=== PATIENT | male | born 1950 | race Caucasian/White ===

== ENCOUNTER 2020-04-10 21:04 | Observation (INO) | payer MEDICARE, SELFPAY ==
[2020-04-10] VITALS (7 sets, daily range): BP systolic 133–163; BP diastolic 79–107; PULSE 75–81; RESP 14–20; TEMP 37.1; O2SAT 95–99
--- NOTE | ~2020-04-10 | CT_ITS ---
EXAMINATION: CT brain wo con DATE: 04/10/2020 23:09 INDICATION: Weakness and confusion. TECHNIQUE: Computed tomography (CT) of the head was performed without intravenous contrast. The dose- length product was 681.00 mGy-cm. The mA was adjusted according to patient size. Iterative reconstruc tion technique was employed. COMPARISON: CT dated 10/19/2017 FINDINGS: Generalized brain parenchymal atrophy. There are scattered mild periventricular and subcort ical white matter changes, most likely related to small vessel ischemic disease (microangiopathy). No ventriculomegaly or midline shift. Basilar cisterns are patent. Paranasal sinuses and mastoids are p neumatized. No depressed skull fractures. No acute intracranial hemorrhage, infarction, mass or mass effect. IMPRESSION: 1. No acute intracranial abnormality. 2: Chronic age-related findings. Reviewed, dictated and finalized at location A.
--- NOTE | ~2020-04-10 | XR_ITS ---
EXAMINATION: XR chest 2V 04/10/2020 21:31 INDICATION: Generalized weakness. PROCEDURE: 2 view chest COMPARISON: Comparison to multiple prior studies sequentially, with oldest reviewed study dated 12/14. FINDINGS: The lungs are clear. The cardiomediastinal silhouette is within normal limits. There are no pleural effusions. There is no pneumothorax suspected. IMPRESSION: 1: NO ACUTE CARDIOPULMONARY DISEASE. Reviewed, dictated and finalized at location A.
--- NOTE | 2020-04-10 21:08 | ECG_ITS ---
Measurements Intervals [place] Rate: 80 P: 37 MD: 170 QRS: 6 QRSD: 113 T: 99 QT: 408 QTc: 473 Interpretive Statements SINUS RHYTHM INTRAVENTRICULAR CONDUCTION DELAY NONSPECIFIC ST & T-WAVE ABNORMALITY- DIFFUSE LEADS BASELINE ARTIFACT- I, II, III, AVR, AVL, AVF BORDERLINE ECG Electronically Signed On 04-11-2020 7:12:19 CDT by Miquel King D.O.
[2020-04-10 21:27] LABS: Basophils Percent Auto 0.3 % (0.2-1.2); Eosinophils Absolute Auto 0.3 K/mm3 (0-0.3); Eosinophils Percent Auto 2.7 % (0-4.4); Hematocrit 36.1 % (42.0-52.0); Hemoglobin 11.6 g/dL (14.0-18.0); Immature Granulocyte Absolute 0.04 K/mm3 (0.00-0.031); Immature Granulocyte Percent A 0.4 % (0-0.5); Lymphocytes Absolute Auto 1.31 K/mm3 (0.9-3.2); Lymphocytes Percent Auto 13.3 % (18.3-44.2); Mean Corpuscular HGB Conc 32.1 g/dl (32-36); Mean Corpuscular Hemoglobin 29.7 pg (26-34); Mean Corpuscular Volume 92.3 fl (80-100); Mean Platelet Volume 9.7 fl (7.4-10.4); Monocytes Absolute Auto 1.3 K/mm3 (0.1-0.6); Neutrophils Absolute Auto 6.9 K/mm3 (1.3-6.7); Neutrophils Percent Auto 70.3 % (45.5-73.1); Platelet Count Result 312 k/mm3 (150-375); Red Blood Count 3.91 M/mm3 (4.6-6.20); Red Cell Distribution Width 14.6 % (11.5-14.5); White Blood Count 9.9 K/mm3 (4.5-10.0)
--- NOTE | 2020-04-10 21:27 | ED.WEAKNESS ---
HPI - Weakness General Chief complaint: Weakness Stated complaint: weakness Time Seen by Provider: 04/10/20 21:27 History of Present Illness HPI Narrative: Patient presents via EMS for generalized weakness. He had his dinner and then took a shower. In the shower he kept sliding off of his shower chair. He was unable to get up himself. He feels like his strength has returned. He has been using a walker for a year. He does not know why he needs help with the walker. He does not know his medications he says his has them. He has no pain. He has not been sick in the last couple weeks. MD Complaint: generalized weakness Onset (ago): hour(s) Duration: now resolved Location: generalized Relieving factors: rest Context: other (Showers cause vasodilatation.) Related Data Home Medications Medication Instructions Recorded Confirmed Adults Multivitamin 10/18/19 bupropion HCl PO 10/18/19 carvedilol 10/18/19 divalproex PO 10/18/19 finasteride mg 10/18/19 fluphenazine HCl 10/18/19 furosemide 10/18/19 iron polysac-iron heme polypep 10/18/19 levothyroxine 10/18/19 metolazone 10/18/19 olanzapine mg 10/18/19 paroxetine HCl mg PO 10/18/19 potassium chloride meq PO 10/18/19 senna 10/18/19 tamsulosin mg PO 10/18/19 vitamin B complex 10/18/19 Allergies Allergy/AdvReac Type Severity Reaction Status Date / Time haloperidol AdvReac Severe shakey, Verified 04/10/20 21:09 dyskinesia Review of Systems Review of Systems: Narrative: CONSTITUTIONAL: Denies fever, chills, or sweats. EYES: Denies visual changes, redness, or discharge. ENT: Denies rhinorrhea, congestion, sore throat, or otalgia. CARDIOVASCULAR: Denies chest pain, palpitations, or edema. RESPIRATORY: Denies cough or dyspnea. GASTROINTESTINAL: Denies abdominal pain, nausea, vomiting, or diarrhea. GENITOURINARY: Denies dysuria or hematuria. SKIN: Denies rash or itching. MUSCULOSKELETAL: Denies back pain, joint pain, or myalgia. NEUROLOGIC: Denies headache, numbness, or weakness. PSYCHIATRIC: Denies anxiety or depression. [facility] Past Medical History Medical History Anemia Anxiety BPH (benign prostatic hyperplasia) Depression Fractures rt fibula GERD (gastroesophageal reflux disease) Glaucoma Hypertension Hypothyroid Pneumonia Schizophrenia Seizures Shingles Sleep apnea Tuberculosis Urinary retention Surgical History Surgical History H/O eye surgery History of hip replacement bilateral Hx of total knee arthroplasty bilateral Social History Social History Smoking status: Never smoker Exam Narrative: Exam Narrative: GENERAL: Well-appearing, well-nourished, and in no acute distress. Overweight. Pleasant. HEAD: Normocephalic, atraumatic. EYES: PERRLA and EOMI. ENT: Nares clear, no rhinorrhea or epistaxis. Mucous membranes dry. NECK: Supple. CHEST: Clear to auscultation. No respiratory distress. HEART: Regular rate and rhythm. No murmur heard. Normal peripheral pulses. ABDOMEN: Soft, nontender, nondistended, normal active bowel sounds. EXTREMITIES: Normal range of motion. No edema. SKIN: Warm, dry, no rash. NEURO: No focal deficits. Alert and oriented x3. PSYCH: Normal mood and affect. Course Consultations Consultation #1: Call the hospitalist and Janeth Bernal and returned adair call. He requests an additional dose of potassium, and accepts the patient. Date: 04/11/20 Time: 00:38 Vital Signs Vital signs: Vital Signs Temperature 98.8 F 04/10/20 21:03 Pulse Rate 81 04/10/20 21:03 Respiratory Rate 20 04/10/20 21:03 Blood Pressure 133/79 04/10/20 21:03 Pulse Oximetry 98 04/10/20 21:03 Temperature 98.8 F 04/10/20 21:03 Pulse Rate 78 04/11/20 00:18 Respiratory Rate 17 04/11/20 00:18 Blood Pressure 147/87 H 04/11/20 00:18 P
[2020-04-10 21:38] LABS: Alanine Aminotransferase 17 U/L (4-50); Albumin Level 4.1 g/dL (3.5-5.1); Alkaline Phosphatase 92 U/L (38-126); Aspartate Amino Transferase 28 U/L (17-59); Bilirubin,Total 0.3 mg/dL (0.2-1.3); Blood Urea Nitrogen 26 mg/dL (9-20); Calcium 9.1 mg/dL (8.4-10.2); Carbon Dioxide 34 mmol/L (22-30); Chloride 98 mmol/L (98-107); Estimated Glomerular Filt Rate > 60; Glucose 113 mg/dL (75-110); Potassium 2.9 mmol/L (3.4-5.0); Sodium 140 mmol/L (137-145)
[2020-04-10] MEDS: POTASSIUM CHLORIDE 10 MEQ TABLET 20 MEQ PO (21:54)
[2020-04-10 23:02] LABS: Free T4 Free Thyroxine Reflex 1.12 ng/dL (0.78-2.19)
[2020-04-10 23:23] LABS: Add Urine Microscopic? YES; Appearance Urine Clear (Clear); Bacteria Urine Trace /hpf; Bilirubin Urine Negative (Negative); Blood Urine Negative (Negative); Color Urine Yellow (Yellow); Glucose Urine UA Negative (Negative); Ketones Urine Trace mg/dL (Negative); Leukocyte Esterase Ur Negative LEU/UL (Negative); Mucus Urine Rare /lpf; Nitrate Urine Negative (Negative); Protein Urine 1+ mg/dL (Negative); RBC Urine 0-2 /hpf (0-2); Specific Grav Ur 1.028 (1.001-1.035); Squamous Epithelial Cell Urine Rare /hpf (Few); Urobilinogen Urine Negative mg/dL (<2.0); WBC Urine 0-3 /hpf
[2020-04-10 23:43] LABS: Total Triiodothyronine (T3) 0.93 NG/ML (0.97-1.69)
[2020-04-11] VITALS (26 sets, daily range): BP systolic 109–157; BP diastolic 64–103; PULSE 59–82; RESP 13–22; TEMP 35.6–36.4; O2SAT 94–99; BMI 43.5
[2020-04-11] MEDS: POTASSIUM CHLORIDE 10 MEQ TABLET 20 MEQ PO (01:28)
[2020-04-11] MEDS: LEVOTHYROXINE SODIUM 100 MCG, LEVOTHYROXINE SODIUM 75 MCG 175 MCG PO (06:10)
[2020-04-11] MEDS: MULTIVITAMINS THERAPEUTIC TAB (*BKC) 1 TABLET PO (08:45)
[2020-04-11] MEDS: TAMSULOSIN HCL 0.4 MG CAPSULE 0.8 MG PO (08:45)
[2020-04-11] MEDS: POTASSIUM CHLORIDE 20 MEQ TABLET.ER 40 MEQ PO (08:46)
[2020-04-11] MEDS: FUROSEMIDE 40 MG TABLET PO (08:46)
[2020-04-11] MEDS: FINASTERIDE 5 MG TABLET PO (08:46)
[2020-04-11] MEDS: carvediloL 12.5 MG TABLET PO ×2 (08:46→20:37)
[2020-04-11] MEDS: POLYSACCHARIDE IRON COMPLEX 150 MG CAPSULE PO (08:46)
[2020-04-11] MEDS: PAROXETINE 20 MG TABLET 40 MG PO (08:46)
[2020-04-11] MEDS: MAGNESIUM OXIDE 400 MG TABLET PO (08:46)
[2020-04-11] MEDS: VITAMIN B COMPLEX CAPSULE 1 CAP PO (08:46)
[2020-04-11] MEDS: metOLazone 5 MG TABLET PO (08:50)
[2020-04-11 09:00] LABS: Hematocrit 35.2 % (42.0-52.0); Hemoglobin 11.3 g/dL (14.0-18.0); Mean Corpuscular HGB Conc 32.1 g/dl (32-36); Mean Corpuscular Hemoglobin 29.7 pg (26-34); Mean Corpuscular Volume 92.4 fl (80-100); Mean Platelet Volume 9.6 fl (7.4-10.4); Platelet Count Result 270 k/mm3 (150-375); Red Blood Count 3.81 M/mm3 (4.6-6.20); Red Cell Distribution Width 14.6 % (11.5-14.5); White Blood Count 7.8 K/mm3 (4.5-10.0)
--- NOTE | 2020-04-11 09:04 | PC.NURSE ---
Two orders entered for Depakote. First order read Depakote 500mg BID and second order was for Depakote 250mg BID. Called to patients pharmacy and they stated patient had both ordered. However, the 250mg dose had never been picked up and has been on hold. Spoke with Dr. Thornton and received orders to discontinue the 250mg order and continue 500mg order. Patient unsure of what he normally does at home.
[2020-04-11 09:12] LABS: Blood Urea Nitrogen 23 mg/dL (9-20); Calcium 8.8 mg/dL (8.4-10.2); Carbon Dioxide 32 mmol/L (22-30); Chloride 98 mmol/L (98-107); Estimated CRCL calculation 89 ml/min; Estimated Glomerular Filt Rate > 60; Glucose 163 mg/dL (75-110); Magnesium 1.9 mg/dL (1.6-2.3); Sodium 140 mmol/L (137-145)
[2020-04-11] MEDS: buPROPion HCL SR (12HR) 100 MG TABCR 200 MG PO ×2 (09:12→20:37)
[2020-04-11] MEDS: DIVALPROEX SODIUM 250 MG TABEC 500 MG PO ×2 (09:13→20:38)
--- NOTE | 2020-04-11 14:25 | PM.IMHP ---
H&P: HPI History of Present Illness Chief complaint: weakness, hypothroidism, hypokalemia, Narrative: Soren Almanzar is a 69 year old male with history of schizophrenia seizure anxiety depression and hypothyroidism he lives with his at home and apparently patient has been feeling quite weak and tired, has difficulty ambulating with a walker on the day of admission, patient after dinner went to take a shower normally he sits down in the chair however he kept falling off the chair and sliding down eventually fell on floor and was not able to get up EMS was called patient was brought to the emergency department further evaluation, patient deneis any symptome of CP, palpitation or dizziness prior to fall, he denies any cough, fever or chill and he is not been exposed to COVID-19, patient is morbily obese with BMP of 44 and his who is his caregiver unable to take care him and would to place him the NH. Will have a PT OT evaluate the patient, patient will benefit going to acute rehab Review of Systems Review of Systems: All systems reviewed & are unremarkable except as noted in HPI and below PMFSH Past Medical History Medical History Anemia Anxiety BPH (benign prostatic hyperplasia) Depression Fractures rt fibula GERD (gastroesophageal reflux disease) Glaucoma Hypertension Hypothyroid Pneumonia Schizophrenia Seizures Shingles Sleep apnea Tuberculosis Urinary retention Surgical History Surgical History H/O eye surgery History of hip replacement bilateral Hx of total knee arthroplasty bilateral Family History Family History (Updated 04/11/20 @ 02:49 by Robert Gerber RN) Mother Alcoholism Heart disease Father Brain cancer Sibling Stomach cancer Alcoholism Acute myocardial infarction Social History Social History Smoking status: Never smoker Alcohol intake: former Substance use: never Spiritual care concerns: No Meds Home Medications and Allergies Home Medications Medication Instructions Recorded Confirmed Type Adults Multivitamin 1 tab-cap/day PO DAILY 10/18/19 04/11/20 History bupropion HCl 200 mg PO BID 10/18/19 04/11/20 History carvedilol 12.5 mg PO BID 10/18/19 04/11/20 History finasteride 5 mg PO DAILY 10/18/19 04/11/20 History fluphenazine HCl 10 mg PO TID 10/18/19 04/11/20 History furosemide 40 mg PO DAILY 10/18/19 04/11/20 History iron polysac-iron heme polypep 150 mg PO DAILY 10/18/19 04/11/20 History levothyroxine 150 mcg PO DAILY 10/18/19 04/11/20 History metolazone 5 mg PO DAILY 10/18/19 04/11/20 History olanzapine 10 mg PO DAILY 10/18/19 04/11/20 History paroxetine HCl 40 mg PO DAILY 10/18/19 04/11/20 History potassium chloride 40 meq PO DAILY 10/18/19 04/11/20 History senna 1 tab-cap PO BID 10/18/19 04/11/20 History tamsulosin 0.8 mg PO DAILY 10/18/19 04/11/20 History vitamin B complex 1 tab-cap PO DAILY 10/18/19 04/11/20 History divalproex 500 mg PO BID 04/11/20 04/11/20 History magnesium oxide 400 mg PO DAILY 04/11/20 04/11/20 History Allergies Allergy/AdvReac Type Severity Reaction Status Date / Time haloperidol AdvReac Severe shakey, Verified 04/10/20 21:09 dyskinesia Vital Signs Vital Signs - 24 hr 04/10/20 21:03 04/10/20 22:30 04/10/20 23:18 Temperature 98.8 F Pulse Rate 81 80 79 Respiratory Rate 20 20 14 Blood Pressure 133/79 161/92 H Pulse Oximetry 98 95 98 04/10/20 23:30 04/10/20 23:31 04/10/20 23:45 Temperature Pulse Rate 77 75 78 Respiratory Rate 14 14 15 Blood Pressure 163/107 H Pulse Oximetry 99 96 97 04/10/20 23:46 04/11/20 00:00 04/11/20 00:15 Temperature Pulse Rate 79 78 82 Respiratory Rate 15 17 13 Blood Pressure 158/101 H Pulse Oximetry 95 96 97 04/11/20 00:18 04/11/20 00:30 04/11/20 00:31 Temperature Pulse Rate 78 78 79 Respirato
[2020-04-11] MEDS: SENNOSIDES 8.6 MG TABLET PO (16:23)
[2020-04-11] MEDS: ACETAMINOPHEN 325 MG TABLET 650 MG PO (20:38)
[2020-04-12] VITALS: PULSE 61
[2020-04-12 04:00] VITALS: PULSE 64
[2020-04-12 06:00] VITALS: BP 139/86; PULSE 67; RESP 20; TEMP 36.2; O2SAT 92
[2020-04-12] MEDS: LEVOTHYROXINE SODIUM 100 MCG, LEVOTHYROXINE SODIUM 75 MCG 175 MCG PO (06:24)
[2020-04-12 07:48] LABS: Blood Urea Nitrogen 25 mg/dL (9-20); Calcium 9.1 mg/dL (8.4-10.2); Carbon Dioxide 38 mmol/L (22-30); Chloride 96 mmol/L (98-107); Estimated CRCL calculation 81 ml/min; Estimated Glomerular Filt Rate > 60; Glucose 104 mg/dL (75-110); Potassium 3.2 mmol/L (3.4-5.0); Sodium 139 mmol/L (137-145)
[2020-04-12 08:00] VITALS: PULSE 82
[2020-04-12 08:10] VITALS: PULSE 70
[2020-04-12] MEDS: DIVALPROEX SODIUM 250 MG TABEC 500 MG PO (08:10)
[2020-04-12] MEDS: TAMSULOSIN HCL 0.4 MG CAPSULE 0.8 MG PO (08:10)
[2020-04-12] MEDS: MAGNESIUM OXIDE 400 MG TABLET PO (08:10)
[2020-04-12] MEDS: POLYSACCHARIDE IRON COMPLEX 150 MG CAPSULE PO (08:10)
[2020-04-12] MEDS: metOLazone 5 MG TABLET PO (08:10)
[2020-04-12] MEDS: FINASTERIDE 5 MG TABLET PO (08:10)
[2020-04-12] MEDS: carvediloL 12.5 MG TABLET PO (08:10)
[2020-04-12] MEDS: buPROPion HCL SR (12HR) 100 MG TABCR 200 MG PO (08:10)
[2020-04-12] MEDS: VITAMIN B COMPLEX CAPSULE 1 CAP PO (08:10)
[2020-04-12] MEDS: FUROSEMIDE 40 MG TABLET PO (08:10)
[2020-04-12] MEDS: POTASSIUM CHLORIDE 20 MEQ TABLET.ER 40 MEQ PO (08:10)
[2020-04-12] MEDS: PAROXETINE 20 MG TABLET 40 MG PO (08:11)
[2020-04-12] MEDS: MULTIVITAMINS THERAPEUTIC TAB (*BKC) 1 TABLET PO (08:11)
[2020-04-12] MEDS: SENNOSIDES 8.6 MG TABLET PO (08:14)
[2020-04-12] MEDS: POTASSIUM CHLORIDE 20 MEQ TABLET 40 MEQ PO (09:19)
[2020-04-12 12:00] VITALS: PULSE 77
--- NOTE | 2020-04-12 13:15 | PM.DS ---
DS: Admitting Diagnosis Admitting Diagnosis Admitting Diagnosis: Weakness DS: Discharge Diagnosis Discharge Diagnosis (1) Weakness: Code(s): R53.1 - Weakness Status: Acute Assessment and Plan: Soren Almanzar is a 69 year old male with history of schizophrenia seizure anxiety depression and hypothyroidism he lives with his at home and apparently patient has been feeling quite weak and tired, has difficulty ambulating with a walker on the day of admission, patient after dinner went to take a shower normally he sits down in the chair however he kept falling off the chair and sliding down eventually fell on floor and was not able to get up EMS was called patient was brought to the emergency department further evaluation, patient deneis any symptome of CP, palpitation or dizziness prior to fall, he denies any cough, fever or chill and he is not been exposed to COVID-19, patient is morbily obese with BMP of 44 and his who is his caregiver unable to take care him and would to place him the NH. Will have a PT OT evaluate the patient, patient will benefit going to acute rehab (2) Near syncope: Code(s): R55 - Syncope and collapse Status: Acute Assessment and Plan: Most likely patient had a mechanical fall (3) Hypokalemia: Code(s): E87.6 - Hypokalemia Status: Acute Assessment and Plan: Will monitor and supplement (4) Hypothyroid: Qualifiers: Hypothyroidism type: unspecified Qualified Code(s): E03.9 - Hypothyroidism, unspecified Code(s): E03.9 - Hypothyroidism, unspecified Status: Acute Assessment and Plan: Patient with history of hypothyroid is taking levothyroxine 150 mcg q.day, his TSH is elevated is T4 is normal however T3 slightly below normal coat padder increased his levothyroxine to 175 mcg patient will need a repeat TSH in 6 weeks (5) Chronic paranoid schizophrenia: Code(s): F20.0 - Paranoid schizophrenia Status: Acute Assessment and Plan: Resume home medication (6) Morbid obesity: Code(s): E66.01 - Morbid (severe) obesity due to excess calories Status: Acute Assessment and Plan: Will consult dietitian patient will benefit from dietary intake controlled DS: Summary Hospital Course Reason for hospitalization: Soren Almanzar is a 69 year old male with history of schizophrenia seizure anxiety depression and hypothyroidism he lives with his at home and apparently patient has been feeling quite weak and tired, has difficulty ambulating with a walker on the day of admission, patient after dinner went to take a shower normally he sits down in the chair however he kept falling off the chair and sliding down eventually fell on floor and was not able to get up EMS was called patient was brought to the emergency department further evaluation, patient deneis any symptome of CP, palpitation or dizziness prior to fall, he denies any cough, fever or chill and he is not been exposed to COVID-19, patient is morbily obese with BMP of 44 and his who is his caregiver unable to take care him and would to place him the [place]. Will have a PT OT evaluate the patient, patient will benefit going to acute rehab Hospital Course: Soren Almanzar is a 69 year old male with history of schizophrenia seizure anxiety depression and hypothyroidism he lives with his at home and apparently patient has been feeling quite weak and tired, has difficulty ambulating with a walker on the day of admission, patient after dinner went to take a shower normally he sits down in the chair however he kept falling off the chair and sliding down eventually fell on floor and was not able to get up EMS was called patient was brought to the emergency department further evaluation, patient deneis any symptome of CP, palpitation or dizziness prior to fall, he denies any cough, fever or chill and he is not been exposed to COVID-19, patient is morbily
== END 2020-04-12 14:25 ==
LOC: ANHED 04-11 00:39 → ANH2MED 04-11 16:13
PROVIDERS: Admitting Provider Internal Medicine; Emergency Provider Emergency Medicine; PCP Radiology Diagnostic Radiology; Visit Provider Family Medicine
DX: R53.1 Weakness (principal); R55 Syncope and collapse; E87.6 Hypokalemia; E03.9 Hypothyroidism, unspecified; F20.0 Paranoid schizophrenia; E66.01 Morbid (severe) obesity due to excess calories; Z68.41 Body mass index [BMI] 40.0-44.9, adult; F41.9 Anxiety disorder, unspecified; F32.9 Major depressive disorder, single episode, unspecified; I10 Essential (primary) hypertension; N40.0 Benign prostatic hyperplasia without lower urinary tract symptoms; K21.9 Gastro-esophageal reflux disease without esophagitis; H40.9 Unspecified glaucoma; R56.9 Unspecified convulsions; Z79.899 Other long term (current) drug therapy; Z96.643 Presence of artificial hip joint, bilateral; Z96.653 Presence of artificial knee joint, bilateral
CPT/HCPCS: 36415; 70450; 71046; 80048; 80053; 81001; 83735; 84439; 84443; 84480; 85025; 85027; 93005; 97161; 97165; 99285; A9270; G0378

== ENCOUNTER 2020-04-22 11:11 | Inpatient (IN) | payer MEDICARE, SELFPAY ==
[2020-04-22] VITALS (42 sets, daily range): BP systolic 109–159; BP diastolic 80–139; PULSE 53–76; RESP 13–24; TEMP 35.7–36.7; O2SAT 91–100; BMI 40.9
--- NOTE | ~2020-04-22 | US_ITS ---
US thyroid INDICATION: Hoarseness. TECHNIQUE: Real-time sonographic images of the thyroid gland were obtained. COMPARISON: No prior studies for comparison. FINDINGS: Examination limited by patient body habitus. The right thyroid lobe measures 4.4 x 2.2 x 1. 3 cm. The left thyroid lobe measures 4.2 x 1.8 x 1.3 cm. There is heterogeneous echotexture and echo genicity throughout the thyroid gland. No discrete nodules identified. Normal vascular flow is prese nt. IMPRESSION: 1. Heterogeneous thyroid gland. No discrete mass identified. Reviewed, dictated and finalized at location A.
--- NOTE | ~2020-04-22 | CT_ITS ---
EXAMINATION: CT soft tissue neck wo con DATE: 05/04/2020 07:45 INDICATION: Hoarse sounds TECHNIQUE: Computed tomography (CT) of the neck was performed without intravenous contrast. Automated exposure control and iterative reconstruction technique were employed. The dose-length product was 6 49.84 mGy-cm. COMPARISON: None FINDINGS: Thyroid gland is unremarkable. Submandibular and parotid glands are symmetric. There are scattered normal-sized lymph nodes in the neck, no lymphadenopathy. No masses identified. Normal epiglottis. V ocal cords appear normal and symmetric. Deep spaces of the neck are unremarkable. Atherosclerotic flash cifications at the right carotid bulb. Orbits are unremarkable. Mucosal thickening the posterior righ t ethmoid air cells. Superior mediastinum is unremarkable. Symmetric prominence of the sulci consiste nt with mild age-appropriate diffuse cerebral volume loss. Small lipoma along the falx. Mastoid air c ells and middle ear cavities are clear. Severe cervical spondylosis. Lung apices are normal. IMPRESSION: 1. Normal symmetric-appearing vocal cords and no abnormal masses were lymphadenopathy. No etiology id entified for reported hoarseness. Reviewed, dictated and finalized at location A. IMPRESSION: 1. Normal symmetric-appearing vocal cords and no abnormal masses were lymphaden opathy. No etiology identified for reported hoarseness.
--- NOTE | ~2020-04-22 | US_ITS ---
EXAMINATION:US venous doppler LE BI INDICATION:Elevated d-dimer TECHNIQUE: Multiple grayscale, color flow and Doppler images of the lower extremity deep venous syste ms were obtained and reviewed. COMPARISON:No prior studies for comparison. FINDINGS: The common femoral, superficial femoral and popliteal veins demonstrate normal respiratory variation, augmentation and compressibility. Color flow is also seen within the posterior tibial, pe roneal, greater saphenous and profunda veins. IMPRESSION: 1: No lower extremity deep venous thrombosis. Reviewed, dictated and finalized at location A.
--- NOTE | ~2020-04-22 | CT_ITS ---
EXAMINATION: CT brain wo con DATE: 04/29/2020 11:25 INDICATION: Lethargy. TECHNIQUE: Computed tomography (CT) of the head was performed without intravenous contrast. The mA wa s adjusted according to patient size. Iterative reconstruction technique was employed. The dose-lengt h product was 681.00 mGy-cm. COMPARISON: Head CT 04/10/2020 FINDINGS: There are scattered areas of low attenuation in the cerebral white matter, which is within normal limits for the patient's age. There is no intracranial hemorrhage, acute infarction, or abnorm al intracranial mass lesion. The ventricles are normal in size. The mastoid air cells are normal. The re is mild mucosal thickening in the ethmoid sinuses. The orbits are normal. IMPRESSION: 1. Normal aging brain. Reviewed, dictated and finalized at location A. IMPRESSION: 1. Normal aging brain.
--- NOTE | ~2020-04-22 | XR_ITS ---
XR wrist RT min 3V 04/22/2020 15:33 Indication: Right wrist pain Procedure: 4 views right wrist Comparison: No prior studies for comparison. Findings: No fracture, subluxation or dislocation. Osteopenia. There are degenerative changes of the first triscaphe, MCP and CMC joints. No focal soft tissue abnormality. No foreign bodies. Impression: 1: Mild polyarticular osteoarthritis. Reviewed, dictated and finalized at location A. Impression: 1: Mild polyarticular osteoarthritis.
--- NOTE | ~2020-04-22 | XR_ITS ---
XR chest 1V portable 04/22/2020 11:49 Indication: Weakness and dyspnea Procedure: 2 view chest Comparison: Comparison to multiple prior studies sequentially, with oldest reviewed study dated 04/2017. Findings: Heart size is normal for technique. There are healed left rib fractures. No acute focal pne umonia, edema or effusion. Chronic elevation of the right diaphragm. Impression: 1: No acute cardiopulmonary disease. Reviewed, dictated and finalized at location A. Impression: 1: No acute cardiopulmonary disease.
--- NOTE | ~2020-04-22 | CT_ITS ---
EXAMINATION: CTA chest PE abdomen pel DATE: 04/22/2020 14:44 CDT INDICATION: Weakness and chest pain TECHNIQUE: Computed tomographic angiography (CTA) of the chest, abdomen, and pelvis was performed wit hout and with 100 mL Omnipaque-350 intravenous contrast. The dose-length product was 2278.59 mGy-cm. Maximum intensity projection 3D-reconstructions of the aorta and other arteries were constructed by hamilton salas technologist on a separate workstation. Automated exposure control and iterative reconstruction te chnique were employed. COMPARISON: CT dated 03/10/2016 FINDINGS: CHEST CTA: The study is technically adequate without evidence for pulmonary embolism. Heart size normal. No sign ificant pleural or pericardial effusion. No thoracic lymphadenopathy. There is atherosclerosis of the aorta and coronary arteries. 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 There is s coliosis. Evaluation of lung parenchyma is somewhat limited by motion artifact. No endobronchial lesi ons. No focal airspace consolidation. There is left lower lobe atelectasis/scarring. No suspicious pu lmonary nodules or masses. ABDOMEN AND PELVIS CTA: There is pneumobilia which appears chronic. The spleen, pancreas, adrenal glands and kidneys are unre markable. Retroaortic left renal vein. The celiac axis, SMA and DEBORAH are patent. No significant abnorm ality of the renal arteries. No lymphadenopathy. Nonobstructive bowel gas pattern. No free air or ayush e fluid. There is a right total hip arthroplasty. No there superior endplate compression fractures of T12 and L5 which appear chronic. There has been progression of sclerosis involving L1, L2, L3 and L4 . There is disc narrowing at multiple levels. IMPRESSION: 1. No evidence for pulmonary embolism. No acute abnormality of the chest, abdomen or pelvis. 2: Progression of patchy sclerosis involving L1-L4, suspicious for metastatic disease. Correlate for history of malignancy. 3: Stable chronic compression fractures of T12 and L5. Reviewed, dictated and finalized at location A. IMPRESSION: 1. No evidence for pulmonary embolism. No acute abnormality of the chest, abdom en or pelvis. 2: Progression of patchy sclerosis involving L1-L4, suspicious for metastatic disease. Correlate for history of malignancy. 3: Stable chronic compression fractures of T12 and L5.
--- NOTE | ~2020-04-22 | NM_ITS ---
EXAMINATION: NM bone scan whole body DATE: 04/23/2020 14:30 INDICATION: Progression of patchy sclerosis involving L1-L4 TECHNIQUE: 24.1 mCi Tc-99m HDP was administered intravenously. Delayed whole-body scintigrams were o btained. COMPARISON: Bone scan dated 07/26/2017 CT chest, abdomen and pelvis dated 04/23/2020, neck CT dated 07/15, left knee radiographs dated 09/07/2017 and right knee radiographs dated 10/30/2017 FINDINGS: There are photopenic defects at a right total hip arthroplasty and bilateral knees correspond to tota l knee arthroplasties. The left knee there is abnormal significantly increased bone uptake at the pat damian and along the margins of the femoral and tibial components which could be seen with loosening, i nfection or fracture. Relatively symmetric pattern of likely degenerative joint centered uptake at th e bilateral mid feet and first metatarsophalangeal joints. Prominent increased uptake at the right st ernoclavicular joint with corresponding severe inflammatory arthritis with severe joint space narrowi ng, sclerosis and juxta articular erosions consistent with an inflammatory arthritis. Multilevel incr eased uptake in the lumbar spine with corresponding severe spondylosis with sclerotic degenerative en dplate changes centered around the regions of severe disc height loss at the left side of L1-L2 and r ight side of L2-L3 and L3-L4 and severe bilateral lower lumbar facet osteoarthritis. Additional foci of increased uptake at the left and right sides of the lower thoracic spine corresponding to addition al severe osteoarthritis at the facet and costovertebral articulations. Focus of increased uptake cor responding to severe arthritis atlantoaxial articulation. At the left Relative asymmetric increased u ptake at the bilateral sacroiliac joints with corresponding relatively symmetric sacroiliitis with er osions along the inferior aspect of both sacroiliac joints. Mild likely degenerative joint centered u ptake at the left hip. No other foci of suspicious bone uptake not associated with degenerative gambino es to suggest metastatic disease. IMPRESSION: 1. Numerous foci of joint and disc centered increased uptake throughout the axial and appendicular sk [place] corresponding severe spondylosis in the spine and inflammatory arthritic changes at the right sternoclavicular and bilateral sacral iliac joints. 2. Right hip and bilateral total knee arthroplasties. There is asymmetric increased uptake at the mar gins of the left total knee arthroplasty and could not exclude loosening or infection. Recommend obta ining dedicated radiographs of the left knee for comparison. Reviewed, dictated and finalized at location A. IMPRESSION: 1. Numerous foci of joint and disc centered increased uptake throughout the axi al and appendicular skeleton corresponding severe spondylosis in the spine and inflammatory arthritic changes at the right sternoclavicular and bilateral sacr al iliac joints. 2. Right hip and bilateral total knee arthroplasties. There is asymmetric incre ased uptake at the margins of the left total knee arthroplasty and could not ex clude loosening or infection. Recommend obtaining dedicated radiographs of the left knee for comparison.
--- NOTE | 2020-04-22 11:23 | ECG_ITS ---
Measurements Intervals [place] Rate: 62 P: 83 [place]: 155 QRS: 2 QRSD: 128 T: 0 QT: 455 QTc: 464 Interpretive Statements SINUS RHYTHM INTRAVENTRICULAR CONDUCTION DELAY DELAYED PRECORDIAL R/S TRANSITION NONSPECIFIC ST & T-WAVE ABNORMALITY- DIFFUSE LEADS BASELINE WANDER- II, III, AVF BORDERLINE ECG Electronically Signed On 04-22-2020 11:31:42 CDT by Miquel King D.O.
[2020-04-22] MEDS: FAMOTIDINE 20 MG/2 ML VIAL IV PUSH ×2 (11:45→20:17)
--- NOTE | 2020-04-22 11:49 | ED.GENADULT ---
HPI - General Adult General Chief complaint: Chest Pain <HAIDER Estrada Last Filed: 04/22/20 15:53> Stated complaint: WEAKNESS/CP <HAIDER Estrada Last Filed: 04/22/20 15:53> Time Seen by Provider: 04/22/20 11:25 <HAIDER Estrada Last Filed: 04/22/20 15:53> Source: patient, EMS and old records reviewed <HAIDER Estrada Last Filed: 04/22/20 15:53> Mode of arrival: EMS <HAIDER Estrada Last Filed: 04/22/20 15:53> Limitations: clinical condition <HAIDER Estrada Last Filed: 04/22/20 15:53> History of Present Illness HPI narrative: Patient is a 69-year-old male who presents to emergency department for evaluation of multiple complaints to include some epigastric mid chest pain that is been present for several days duration coming and going worse with deep breathing and activity patient notes that he had a mechanical fall a week ago and has since been having pain in multiple locations to include the right hip pelvis region abdomen chest. Patient is alert and oriented to person place and reason for being in the emergency department. Patient notes that he had negative right wrist radiographs but no other imaging. Patient has not taken anything for himself and presents for EMS from intermediate. Patient with history of schizophrenia <HAIDER Estrada Last Filed: 04/22/20 15:53> Related Data Home medications: Home Medications Medication Instructions Recorded Confirmed Adults Multivitamin 1 tab-cap/day PO DAILY 10/18/19 04/11/20 bupropion HCl 200 mg PO BID 10/18/19 04/11/20 carvedilol 12.5 mg PO BID 10/18/19 04/11/20 finasteride 5 mg PO DAILY 10/18/19 04/11/20 fluphenazine HCl 10 mg PO TID 10/18/19 04/11/20 furosemide 40 mg PO DAILY 10/18/19 04/11/20 iron polysac-iron heme polypep 150 mg PO DAILY 10/18/19 04/11/20 metolazone 5 mg PO DAILY 10/18/19 04/11/20 olanzapine 10 mg PO DAILY 10/18/19 04/11/20 paroxetine HCl 40 mg PO DAILY 10/18/19 04/11/20 potassium chloride 40 meq PO DAILY 10/18/19 04/11/20 senna 1 tab-cap PO BID 10/18/19 04/11/20 tamsulosin 0.8 mg PO DAILY 10/18/19 04/11/20 vitamin B complex 1 tab-cap PO DAILY 10/18/19 04/11/20 divalproex 500 mg PO BID 04/11/20 04/11/20 magnesium oxide 400 mg PO DAILY 04/11/20 04/11/20 <Ramon Coronel PA-C - Last Filed: 04/22/20 15:53> Allergies/adverse reactions: Allergies Allergy/AdvReac Type Severity Reaction Status Date / Time haloperidol AdvReac Severe shakey, Verified 04/22/20 11:37 dyskinesia <Ramon Coronel PA-C - Last Filed: 04/22/20 15:53> Review of Systems Review of Systems: Narrative: Limited due to clinical condition CONSTITUTIONAL: Denies fever, chills, or sweats. EYES: Denies redness, or discharge. ENT: Denies rhinorrhea, congestion, sore throat, or otalgia. CARDIOVASCULAR: Denies palpitations RESPIRATORY: Denies cough or dyspnea. GASTROINTESTINAL: Denies vomiting, or diarrhea. GENITOURINARY: Denies hematuria. SKIN: Denies rash or itching. MUSCULOSKELETAL: Denies back pain, joint pain, or myalgia. NEUROLOGIC: Denies headache, dizziness, or weakness. <Ramon Coronel PA-C - Last Filed: 04/22/20 15:53> All systems reviewed & are unremarkable except as noted in HPI and below <Ramon Coronel PA-C - Last Filed: 04/22/20 15:53> [facility] Past Medical History Medical History: Medical History Anemia Anxiety BPH (benign prostatic hyperplasia) Depression Fractures rt fibula GERD (gastroesophageal reflux disease) Glaucoma Hypertension Hypothyroid Pneumonia Schizophrenia Seizures Shingles Sleep apnea Tuberculosis Urinary retention <Ramon Coronel PA-C - Last Filed: 04/22/20 15:53> Surgical History Surgical History: Surgical History H/O eye surgery History of hip replacement bilateral Hx of total knee art
[2020-04-22 11:56] LABS: Basophils Absolute Auto 0.1 K/mm3 (0.0-0.1); Basophils Percent Auto 0.3 % (0.2-1.2); Eosinophils Absolute Auto 0.1 K/mm3 (0-0.3); Eosinophils Percent Auto 0.8 % (0-4.4); Hematocrit 36.9 % (42.0-52.0); Hemoglobin 12.1 g/dL (14.0-18.0); Immature Granulocyte Absolute 0.21 K/mm3 (0.00-0.031); Immature Granulocyte Percent A 1.5 % (0-0.5); Lymphocytes Absolute Auto 1.39 K/mm3 (0.9-3.2); Lymphocytes Percent Auto 9.7 % (18.3-44.2); Mean Corpuscular HGB Conc 32.8 g/dl (32-36); Mean Corpuscular Hemoglobin 29.7 pg (26-34); Mean Corpuscular Volume 90.7 fl (80-100); Mean Platelet Volume 9.7 fl (7.4-10.4); Monocytes Absolute Auto 1.3 K/mm3 (0.1-0.6); Monocytes Percent Auto 9.3 % (2.6-8.5); Neutrophils Absolute Auto 11.2 K/mm3 (1.3-6.7); Neutrophils Percent Auto 78.4 % (45.5-73.1); Platelet Count Result 547 k/mm3 (150-375); Red Blood Count 4.07 M/mm3 (4.6-6.20); Red Cell Distribution Width 14.1 % (11.5-14.5); White Blood Count 14.3 K/mm3 (4.5-10.0)
[2020-04-22 12:00] LABS: Add Urine Microscopic? NO; Appearance Urine Clear (Clear); Bilirubin Urine Negative (Negative); Blood Urine Negative (Negative); Color Urine Yellow (Yellow); Glucose Urine UA Negative (Negative); Ketones Urine Negative (Negative); Leukocyte Esterase Ur Negative LEU/UL (Negative); Nitrate Urine Negative (Negative); Protein Urine Negative (Negative); Specific Grav Ur 1.015 (1.001-1.035); Urobilinogen Urine Negative mg/dL (<2.0)
[2020-04-22 12:01] LABS: Alveolar/Arterial O2 Gradient 41.2 mmHg; Base Excess ABG 3.4 mEq/l (+/-2.0); Fractional Inspired Oxygen 21 %; HCO3 ABG 26.7 mEq/l (22.0-26.0); Oxygen Content ABG 15.7 %vol (16.0-22.0); Oxygen Saturation ABG 94.3 % (95.0-100.0); Oxyhemoglobin 90.8 % THb (90.0-100.0); PCO2 ABG 36.2 mmHg (35.0-45.0); PO2 ABG 65.2 mmHg (80.0-100.0); Reduced Hemoglobin 8.2 %THb (0-5.0); Total Hemoglobin 12.3 g/dL (12.0-18.0); pH ABG 7.486 (7.350-7.450)
[2020-04-22 12:03] LABS: Device ROOM AIR; Modified Allen's Test Pass; Site Drawn LEFT RADIAL
[2020-04-22 12:09] LABS: INR 1.4
[2020-04-22 12:10] LABS: Partial Thromboplastin Time 41.6 SECONDS (22.3-36.8)
[2020-04-22 12:10] LABS: Alanine Aminotransferase 114 U/L (4-50); Albumin Level 3.7 g/dL (3.5-5.1); Alkaline Phosphatase 148 U/L (38-126); Aspartate Amino Transferase 72 U/L (17-59); Bilirubin,Total 0.4 mg/dL (0.2-1.3); Lipase 26 U/L (23-300)
[2020-04-22 12:19] LABS: NT Pro B Type Natriuretic Pept 234 PG/ML (5-100)
[2020-04-22 12:21] LABS: Troponin I < 0.012 ng/mL (0.000-0.034)
[2020-04-22 12:23] LABS: Blood Urea Nitrogen 35 mg/dL (9-20); Calcium 11.1 mg/dL (8.4-10.2); Carbon Dioxide 37 mmol/L (22-30); Chloride 86 mmol/L (98-107); Estimated CRCL calculation 80 ml/min; Estimated Glomerular Filt Rate > 60; Glucose 124 mg/dL (75-110); Potassium 2.5 mmol/L (3.4-5.0); Sodium 132 mmol/L (137-145)
[2020-04-22 12:26] LABS: D Dimer 4.11 ug/mL (<0.48)
[2020-04-22 12:40] LABS: Magnesium 1.8 mg/dL (1.6-2.3)
[2020-04-22 12:55] LABS: Phosphorus 2.6 mg/dL (2.5-4.5)
--- NOTE | 2020-04-22 14:28 | PC.NURSE ---
unable to draw 3hr patient in CT
[2020-04-22] MEDS: LACTATED RINGERS 1,000 ML 999 ML IV CONT (15:00)
[2020-04-22 15:37] LABS: Troponin I < 0.012 ng/mL (0.000-0.034)
[2020-04-22 16:14] LABS: Valproic Acid 54.2 ug/mL (50-120)
[2020-04-22] MEDS: HYDROMORPHONE HCL 1 MG/ML INJ IV PUSH (16:19)
[2020-04-22 17:28] LABS: Free T4 Free Thyroxine Reflex 1.59 ng/dL (0.78-2.19)
--- NOTE | 2020-04-22 17:34 | PM.IMHP ---
H&P: HPI History of Present Illness Chief complaint: Chest pain/hypokalemia/dehydration Narrative: Soren Almanzar is a 69 year old male who is from [facility]. He came today to be evaluated for multiple complaints. Patient had midsternal chest pain which is been going on for several days. It has been coming and going with deep breath. The patient also sustained a mechanical fall at the assisted and he was complaining of wrist pain. The patient has chronic back pain and is complaining of lower back pain today. Patient's chest pain did go away. But the patient states that he is very weak. He has a history of schizophrenia. The is at the bedside in the emergency room and she is stating that she does not feel that he gets the adequate care that he needs at the assisted he is in. The patient had been complaining of chest pain for couple days in the nurse did not take him seizures today. Also he sustained a fall while at the assisted. Was found to be negative. TSH was 7.060 however his T4 was normal. And T3 is pending. It could be subclinical hypothyroidism. He is on levothyroxine at the assisted. Right wrist x-ray was just read as mild poly articularosteoarthritis. CTA chest PE abdomen protocol. No evidence of pulmonary progression of patchy sclerosis involving L1 through L4 suspicious for metastatic disease. Stable chronic compression fractures of T12 and L5. The patient was given aspirin, Tylenol, Pepcid, potassium supplement, lactated Ringer's, and Dilaudid. D-dimers elevated to 4.11. Review of Systems Review of Systems: All systems reviewed & are unremarkable except as noted in HPI and below Constitutional: Constitutional: Reports as per HPI and Reports no additional constitutional complaints Eyes: Eyes: Reports as per HPI and Reports no additional eye complaints ENT: Reports system reviewed and no additional complaints, except as documented and Reports Normal hearing present Cardiovascular: Cardiovascular: Reports no additional cardiovascular complaints Respiratory: Respiratory: Reports no additional respiratory complaints and Reports no additional respiratory complaints Gastrointestinal: Gastrointestinal: Reports as per HPI and Reports no additional gastrointestinal complaints Musculoskeletal: Musculoskeletal: Reports no additional musculoskeletal complaints Integumentary/Breasts: Skin/Breast: Reports system reviewed and no additional complaints, except as docu and Reports as per HPI Neurologic: Reports system reviewed and no additional complaints, except as documented, Reports as per HPI and Reports Normal hearing present Psychiatric: Psychiatric: Reports no additional psychiatric complaints and Reports as per HPI Endocrine: Endocrine: Reports no additional endocrine complaints Hematologic/Lymphatic: Hematologic/Lymphatic: Reports no additional hematologic/lymphatic complaints Allergic/Immunologic: Allergic/Immunologic: Reports no additional allergic/immunologic complaints [facility] Past Medical History Medical History (Updated 04/22/20 @ 17:46 by Jada Islas NP) Anemia Anxiety BPH (benign prostatic hyperplasia) Depression Fractures rt fibula GERD (gastroesophageal reflux disease) Glaucoma Hypertension Hypothyroid Pneumonia Schizophrenia Seizures Shingles Sleep apnea Tuberculosis Urinary retention Surgical History Surgical History (Updated 04/22/20 @ 17:46 by Jada Islas NP) H/O eye surgery History of hip replacement bilateral Hx of total knee arthroplasty Family History Family History (Updated 04/22/20 @ 17:48 by Jada Islas NP) Mother Alcoholism Heart disease Father Lung cancer Heart disease Sibling Stomach cancer Alcoholism Acute myocardial infarction Social History Social History (Updated 04/22/20 @ 17:51 by Jada Islas NP) Social History: Patient is currently [facility] for rehab. His is a durable pow
[2020-04-22 18:07] LABS: Total Triiodothyronine (T3) 0.65 NG/ML (0.97-1.69)
--- NOTE | 2020-04-22 18:52 | ADMGEN ---
This patient, Soren Almanzar, was admitted to IMU Room [id number]. Patient oriented to hospital policies and general routines including bed and alarms, pain management, and visiting hours. Valuables list has been completed.. Pt drowsy - received pain medication in ER- awakens to name- then returns to sleep ; vss ; monitor on SR 90
[2020-04-22] MEDS: LACTATED RINGERS 1,000 ML 75 ML IV CONT (19:04)
[2020-04-22 19:34] LABS: Troponin I < 0.012 ng/mL (0.000-0.034)
[2020-04-22] MEDS: SENNOSIDES 8.6 MG TABLET PO (20:14)
[2020-04-22] MEDS: buPROPion HCL SR (12HR) 100 MG TABCR 200 MG PO (20:14)
[2020-04-22] MEDS: carvediloL 12.5 MG TABLET PO (20:15)
--- NOTE | 2020-04-22 20:15 | PC.NURSE ---
admission assessment questions obtained from medical record 04/11/2020 hx
[2020-04-22] MEDS: DIVALPROEX SODIUM 250 MG TABEC PO (20:17)
[2020-04-22] MEDS: DIVALPROEX SODIUM 250 MG TABEC 500 MG PO (20:18)
[2020-04-22 21:36] LABS: Potassium 2.7 mmol/L (3.4-5.0)
[2020-04-23] VITALS (13 sets, daily range): BP systolic 99–126; BP diastolic 63–80; PULSE 51–72; RESP 16–20; TEMP 36.1–37.1; O2SAT 92–100
[2020-04-23 05:00] LABS: Lactic Acid 1.1 mmol/L (0.7-2.1)
[2020-04-23 05:06] LABS: Alanine Aminotransferase 90 U/L (4-50); Albumin Level 3.4 g/dL (3.5-5.1); Alkaline Phosphatase 122 U/L (38-126); Aspartate Amino Transferase 53 U/L (17-59); Bilirubin,Total 0.3 mg/dL (0.2-1.3); Blood Urea Nitrogen 32 mg/dL (9-20); CRP 7.8 mg/dL (<1.0); Calcium 10.4 mg/dL (8.4-10.2); Carbon Dioxide 37 mmol/L (22-30); Chloride 89 mmol/L (98-107); Estimated CRCL calculation 109 ml/min; Estimated Glomerular Filt Rate > 60; Glucose 91 mg/dL (75-110); Magnesium 1.9 mg/dL (1.6-2.3); Potassium 3.1 mmol/L (3.4-5.0); Sodium 130 mmol/L (137-145)
[2020-04-23] MEDS: LEVOTHYROXINE SODIUM 75 MCG TABLET PO (05:54)
[2020-04-23] MEDS: LEVOTHYROXINE SODIUM 100 MCG TABLET PO (05:54)
[2020-04-23] MEDS: FAMOTIDINE 20 MG/2 ML VIAL IV PUSH ×2 (09:05→20:06)
[2020-04-23] MEDS: MAGNESIUM OXIDE 400 MG TABLET PO (09:06)
[2020-04-23] MEDS: DIVALPROEX SODIUM 250 MG TABEC PO ×2 (09:06→20:05)
[2020-04-23] MEDS: MULTIVITAMINS THERAPEUTIC TAB (*BKC) 1 TABLET PO (09:06)
[2020-04-23] MEDS: PAROXETINE 20 MG TABLET 40 MG PO (09:06)
[2020-04-23] MEDS: DIVALPROEX SODIUM 250 MG TABEC 500 MG PO ×2 (09:06→20:05)
[2020-04-23] MEDS: FUROSEMIDE 40 MG TABLET PO (09:06)
[2020-04-23] MEDS: FINASTERIDE 5 MG TABLET PO (09:06)
[2020-04-23] MEDS: SENNOSIDES 8.6 MG TABLET PO ×2 (09:06→20:05)
[2020-04-23] MEDS: TAMSULOSIN HCL 0.4 MG CAPSULE 0.8 MG PO (09:06)
[2020-04-23] MEDS: VITAMIN B COMPLEX CAPSULE 1 CAP PO (09:06)
[2020-04-23] MEDS: metOLazone 5 MG TABLET PO (09:06)
[2020-04-23] MEDS: POLYSACCHARIDE IRON COMPLEX 150 MG CAPSULE PO (09:07)
[2020-04-23] MEDS: carvediloL 12.5 MG TABLET PO ×2 (09:07→20:06)
[2020-04-23] MEDS: buPROPion HCL SR (12HR) 100 MG TABCR 200 MG PO ×2 (09:07→20:08)
[2020-04-23] MEDS: POTASSIUM CHLORIDE 20 MEQ TABLET.ER 40 MEQ PO (09:07)
--- NOTE | 2020-04-23 09:16 | PCOTNOTE ---
OT evaluation attempted. Per nursing, hold this AM as patient has testing throughout morning. Will attempt OT evaluation at later time.
--- NOTE | 2020-04-23 09:17 | PCPTNOTE ---
Attempted to see pt this AM for PT evaluation. PT going down for testing and nurse placing new line. Will attempt PT evaluation at later time.
[2020-04-23] MEDS: LACTATED RINGERS 1,000 ML 75 ML IV CONT ×2 (12:27→17:00)
--- NOTE | 2020-04-23 13:07 | PCOTNOTE ---
OT evaluation attempted. Patient off unit for testing. Will attempt at later time.
--- NOTE | 2020-04-23 13:07 | PCPTNOTE ---
Attempted PT evaluation this afternoon. Patient going down for full bone scan per nursing. Will attempt evaluation again tomorrow.
--- NOTE | 2020-04-23 16:33 | PC.NURSE ---
This patient, Soren Almanzar, was received from IMU on 04/23/20 at 1633. Personal belongings list checked and signed. Patient/family oriented to unit policies and routines
--- NOTE | 2020-04-23 16:36 | PC.NURSE ---
This patient, Soren Almanzar, was transferred to [facility] on 04/23/20 at 1628. Personal belongings sent with patient. Belongings list checked and signed with receiving. Report given to ROSALIE Hi. Appropriate documentation sent with patient.
--- NOTE | 2020-04-23 16:55 | PM.IMPN ---
Progress Note: A&P Assessment and Plan (1) Chest pain: Code(s): R07.9 - Chest pain, unspecified Status: Acute Assessment and Plan: Patient is 69-year-old male resident of nursing with history of schizophrenia was sent to emergency department with a complaint chest pain which had been persisting few days prior to coming to emergency depart, patient 3 sets of cardiac enzymes are negative myocardial infarction was ruled out to further evaluate patient's fall and back pain patient had a CTA of the chest there was no pulmonary emboli however patient had a spinal sclerotic lesion, bone scan was done which did not show any malignancy however did show some arthritis, to further evaluate patient was seen by acid changer oncologist is suspect patient may have multiple myeloma as he has calcium is elevated further workup is in progress, patient is a very poor historian with history of schizophrenia unable to provide detailed history review of symptom. (2) Abnormal CT of spine: Code(s): R93.7 - Abnormal findings on diagnostic imaging of other parts of musculoskeletal system Status: Acute Assessment and Plan: Plan is above seen by acid changer oncologist suspect multiple myeloma further workup patient pending (3) Seizures: Code(s): R56.9 - Unspecified convulsions Status: Acute Assessment and Plan: Will continue home regimen and monitor (4) Chronic paranoid schizophrenia: Code(s): F20.0 - Paranoid schizophrenia Status: Acute Assessment and Plan: Clinically stable continue home regimen Subjective Date/time seen: 04/23/20 16:55 Patient is 69-year-old male resident of nursing with history of schizophrenia was sent to emergency department with a complaint chest pain which had been persisting few days prior to coming to emergency depart, patient 3 sets of cardiac enzymes are negative myocardial infarction was ruled out to further evaluate patient's fall and back pain patient had a CTA of the chest there was no pulmonary emboli however patient had a spinal sclerotic lesion, bone scan was done which did not show any malignancy however did show some arthritis, to further evaluate patient was seen by acid changer oncologist is suspect patient may have multiple myeloma as he has calcium is elevated further workup is in progress, patient is a very poor historian with history of schizophrenia unable to provide detailed history review of symptom. Review of Systems Review of Systems: ROS unobtainable: Yes unobtainable due to medical condition Exam Narrative: Exam Narrative: Morbidly obese Const: General: no acute distress and uncomfortable HENMT: General nose exam: Normal nares present Eyes: General: appearance normal, both eyes and all related structures Sclera: sclerae normal Neck: Neck: supple Resp: Effort & Inspection: normal respiratory effort Auscultation: clear to auscultation bilaterally Cardio: Rate: regular rate Rhythm: regular rhythm GI: Auscultation: normal bowel sounds Skin: General skin exam: normal color Neuro: Other: Patient with schizophrenia Extrem: General: normal to inspection Psych: Other: Patient with schizophrenia Objective Data Vital Signs Vital Signs: Vital Signs - 24 hr 04/22/20 17:45 04/22/20 18:46 04/22/20 19:32 Temperature 96.3 F L 97.8 F Pulse Rate 68 62 63 Respiratory Rate 16 22 H 20 Blood Pressure 144/91 H 115/85 131/87 Pulse Oximetry 100 100 04/22/20 20:00 04/22/20 20:15 04/22/20 20:35 Temperature Pulse Rate 70 64 Respiratory Rate Blood Pressure Pulse Oximetry 94 04/22/20 22:00 04/22/20 22:30 04/22/20 23:28 Temperature 98.1 F Pulse Rate 53 L 55 L 55 L Respiratory Rate 20 20 Blood Pressure 110/80 Pulse Oximetry 94 94 04/23/20 00:00 04/23/20 01:53 04/23/20 02:00 Temperature Pulse Rate 52 L 54 L 51 L Respiratory Rate Blood Pressure Pulse Oximetry 93 04/23/20 04:00
--- NOTE | 2020-04-23 18:08 | CONS_ITS ---
DATE OF CONSULTATION: REASON FOR CONSULTATION: Bone lesions. HISTORY OF PRESENTING ILLNESS: This is a 69-year-old [facility] resident. The patient is a poor historian. He came into the hospital with midsternal chest pain for several days duration along with intermittent shortness of breath. He denies any bleeding and bruising. He fell recently and complained of lower back pain. The patient has been feeling quite tired and fatigued. CTA chest was done that showed no evidence of pulmonary embolism, but there was patchy sclerosis involving L1 through L4, suspicious for metastatic disease. The patient denies any previous history of malignancy. REVIEW OF SYSTEMS: 12-point review of systems was reviewed and as per HPI, otherwise negative. PAST MEDICAL HISTORY: BPH, depression, GERD, hypertension, hypothyroidism, schizophrenia, history of seizures, history of TB, urinary retention, anxiety. PAST SURGICAL HISTORY: Bilateral hip replacement and total knee arthroplasty. FAMILY HISTORY: Father had lung cancer and history of stomach cancer in the sibling. SOCIAL HISTORY: The patient is a [facility] resident. Denies any history of smoking and drinking. HOME MEDICATIONS: Reviewed. ALLERGIES: REVIEWED. PHYSICAL EXAMINATION: GENERAL: This patient is quite lethargic and weak. Alert and oriented. VITAL SIGNS: Per nursing note. HEENT: Normocephalic, atraumatic. Clear oropharynx. LUNGS: Clear to auscultation bilaterally. CARDIOVASCULAR: Regular rate and rhythm. No murmurs. ABDOMEN: Soft, nontender, nondistended. Bowel sounds are positive in all 4 quadrants. No hepatosplenomegaly. EXTREMITIES: No edema. NEUROLOGICAL: Grossly intact. LABORATORY DATA: WBC 14.3, hemoglobin 12.1, MCV 90.7, platelet 547,000, neutrophils 78%, lymphocytes 9.7%. Creatinine 1.1, calcium elevated at 11.1. CT chest, abdomen, and pelvis was done on April 22, 2020, showed no evidence of PE, but patchy sclerosis involving L1-L4, suspicious for metastatic disease and chronic compression fracture of T12 and L5. A bone scan was performed that showed numerous foci of joint and disk centered increased uptake throughout the axial and appendicular skeleton, corresponding with severe spondylosis in the spine and arthritis. ASSESSMENT AND PLAN: Bone lesions. The patient is a 69-year-old [facility] resident. He has no previous history of malignancy. He came into the hospital with back pain, status post fall along with generalized tiredness and fatigue. He also has midsternal chest pain. Labs showed mild anemia with elevated serum calcium level. WBC was also elevated along with platelet count. CTA chest was performed that showed no evidence of pulmonary embolism, but there was patchy sclerosis involving L1-L4 suspicious for metastatic disease along with chronic compression fracture of T12 and L5. Bone scan findings noted. I will order serum protein electrophoresis with immunofixation along with quantitative immunoglobulin and light chain studies given the fact that the patient has hypercalcemia and bone lesions. I would not perform bone marrow biopsy at this time. We will discuss the finding with the patient. The patient has been provided with my office information. MARY LOU ALEJANDRA M.D. MARINE ELECTRICIAN HELPER MARINE ELECTRICIAN HELPER D I MT: [place]
[2020-04-23 22:01] LABS: Immunoglobulin A 638 mg/dL (70-400); Immunoglobulin G 1555 mg/dL (700-1600); Immunoglobulin M 58 mg/dL (40-230)
[2020-04-24] VITALS (7 sets, daily range): BP systolic 110–129; BP diastolic 70–96; PULSE 55–72; RESP 14–18; TEMP 36–36.9; O2SAT 93–99
[2020-04-24 05:24] LABS: Hematocrit 33.5 % (42.0-52.0); Mean Corpuscular HGB Conc 32.8 g/dl (32-36); Mean Corpuscular Hemoglobin 29.3 pg (26-34); Mean Corpuscular Volume 89.3 fl (80-100); Mean Platelet Volume 9.4 fl (7.4-10.4); Platelet Count Result 460 k/mm3 (150-375); Red Blood Count 3.75 M/mm3 (4.6-6.20); Red Cell Distribution Width 13.9 % (11.5-14.5)
[2020-04-24] MEDS: LEVOTHYROXINE SODIUM 100 MCG TABLET PO (05:30)
[2020-04-24] MEDS: LEVOTHYROXINE SODIUM 75 MCG TABLET PO (05:30)
[2020-04-24] MEDS: LACTATED RINGERS 1,000 ML 75 ML IV CONT (06:29)
[2020-04-24] MEDS: FUROSEMIDE 40 MG TABLET PO (09:41)
[2020-04-24] MEDS: SENNOSIDES 8.6 MG TABLET PO ×2 (09:41→20:34)
[2020-04-24] MEDS: DIVALPROEX SODIUM 250 MG TABEC 500 MG PO ×2 (09:42→20:34)
[2020-04-24] MEDS: carvediloL 12.5 MG TABLET PO ×2 (09:42→20:35)
[2020-04-24] MEDS: FAMOTIDINE 20 MG/2 ML VIAL IV PUSH ×2 (09:43→20:37)
[2020-04-24] MEDS: POLYSACCHARIDE IRON COMPLEX 150 MG CAPSULE PO (09:43)
[2020-04-24] MEDS: MULTIVITAMINS THERAPEUTIC TAB (*BKC) 1 TABLET PO (09:43)
[2020-04-24] MEDS: DIVALPROEX SODIUM 250 MG TABEC PO ×2 (09:43→20:38)
[2020-04-24] MEDS: MAGNESIUM OXIDE 400 MG TABLET PO (09:43)
[2020-04-24] MEDS: TAMSULOSIN HCL 0.4 MG CAPSULE 0.8 MG PO (09:44)
[2020-04-24] MEDS: POTASSIUM CHLORIDE 20 MEQ TABLET.ER 40 MEQ PO (09:45)
[2020-04-24] MEDS: FINASTERIDE 5 MG TABLET PO (09:45)
[2020-04-24] MEDS: metOLazone 5 MG TABLET PO (09:45)
[2020-04-24] MEDS: PAROXETINE 20 MG TABLET 40 MG PO (09:45)
[2020-04-24] MEDS: buPROPion HCL SR (12HR) 100 MG TABCR 200 MG PO ×2 (09:46→20:34)
[2020-04-24] MEDS: VITAMIN B COMPLEX CAPSULE 1 CAP PO (09:46)
[2020-04-24 09:51] LABS: Blood Urea Nitrogen 24 mg/dL (9-20); Calcium 9.9 mg/dL (8.4-10.2); Carbon Dioxide 36 mmol/L (22-30); Chloride 91 mmol/L (98-107); Estimated CRCL calculation 98 ml/min; Estimated Glomerular Filt Rate > 60; Glucose 95 mg/dL (75-110); Magnesium 1.8 mg/dL (1.6-2.3); Potassium 2.7 mmol/L (3.4-5.0); Sodium 132 mmol/L (137-145)
[2020-04-24] MEDS: POTASSIUM CHLORIDE 20 MEQ TABLET 40 MEQ PO ×2 (10:43→20:34)
[2020-04-24] MEDS: LIDOCAINE 5% PATCH 2 PATCH TRANSDERM (13:56)
[2020-04-24 15:48] LABS: Hematocrit 35.9 % (42.0-52.0); Hemoglobin 11.7 g/dL (14.0-18.0); Mean Corpuscular HGB Conc 32.6 g/dl (32-36); Mean Corpuscular Hemoglobin 29.4 pg (26-34); Mean Corpuscular Volume 90.2 fl (80-100); Mean Platelet Volume 9.2 fl (7.4-10.4); Platelet Count Result 477 k/mm3 (150-375); Red Blood Count 3.98 M/mm3 (4.6-6.20); Red Cell Distribution Width 13.9 % (11.5-14.5); White Blood Count 12.6 K/mm3 (4.5-10.0)
--- NOTE | 2020-04-24 17:05 | PM.IMPN ---
Progress Note: A&P Assessment and Plan (1) Chest pain: Code(s): R07.9 - Chest pain, unspecified Status: Acute Assessment and Plan: 04/24/20 17:05 Patient is 69-year-old male resident of nursing with history of schizophrenia was sent to emergency department with a complaint chest pain which had been persisting few days prior to coming to emergency depart, patient 3 sets of cardiac enzymes are negative myocardial infarction was ruled out to further evaluate patient's fall and back pain patient had a CTA of the chest there was no pulmonary emboli however patient had a spinal sclerotic lesion, bone scan was done which did not show any malignancy however did show some arthritis, to further evaluate patient was seen by pet caretaker oncologist is suspect patient may have multiple myeloma as he has calcium is elevated further workup is in progress, patient is a very poor historian with history of schizophrenia unable to provide detailed history review of symptom. Patient complains of low back pain denies any fever or chills, awaiting test results to rule out multiple myeloma (2) Abnormal CT of spine: Code(s): R93.7 - Abnormal findings on diagnostic imaging of other parts of musculoskeletal system Status: Acute Assessment and Plan: Plan is above seen by pet caretaker oncologist suspect multiple myeloma further workup patient pending (3) Seizures: Code(s): R56.9 - Unspecified convulsions Status: Acute Assessment and Plan: Will continue home regimen and monitor (4) Chronic paranoid schizophrenia: Code(s): F20.0 - Paranoid schizophrenia Status: Acute Assessment and Plan: Clinically stable continue home regimen Subjective Date/time seen: 04/24/20 17:05 Patient is 69-year-old male resident of nursing with history of schizophrenia was sent to emergency department with a complaint chest pain which had been persisting few days prior to coming to emergency depart, patient 3 sets of cardiac enzymes are negative myocardial infarction was ruled out to further evaluate patient's fall and back pain patient had a CTA of the chest there was no pulmonary emboli however patient had a spinal sclerotic lesion, bone scan was done which did not show any malignancy however did show some arthritis, to further evaluate patient was seen by pet caretaker oncologist is suspect patient may have multiple myeloma as he has calcium is elevated further workup is in progress, patient is a very poor historian with history of schizophrenia unable to provide detailed history review of symptom. Patient complains of low back pain denies any fever or chills, awaiting test results to rule out multiple myeloma Review of Systems Review of Systems: All systems reviewed & are unremarkable except as noted in HPI and below Exam Narrative: Exam Narrative: Morbidly obese Const: General: no acute distress and uncomfortable HENMT: General nose exam: Normal nares present Mouth: Yes moist mucous membranes Eyes: General: appearance normal, both eyes and all related structures Sclera: sclerae normal Neck: Neck: supple Resp: Effort & Inspection: normal respiratory effort Auscultation: clear to auscultation bilaterally Cardio: Rate: regular rate Rhythm: regular rhythm GI: Auscultation: normal bowel sounds Skin: General skin exam: normal color Neuro: Other: Patient with history of schizophrenia Extrem: General: normal to inspection Psych: Affect: Anxious affect present Objective Data Vital Signs Vital Signs: Vital Signs - 24 hr 04/23/20 19:46 04/23/20 20:06 04/23/20 22:15 Temperature 97 F L Pulse Rate 64 60 54 L Respiratory Rate 16 Blood Pressure 104/63 Pulse Oximetry 100 92 04/24/20 05:41 04/24/20 09:42 04/24/20 09:50 Temperature 97 F L Pulse Rate 59 L 64 64 Respiratory Rate 14 16 Blood Pressure 122/89 Pulse Oximetry 99 99 04/24/20 14:00 Temperature 96.8 F L Pulse Rate 6
[2020-04-24 19:26] LABS: Blood Urea Nitrogen 19 mg/dL (9-20); Calcium 9.9 mg/dL (8.4-10.2); Carbon Dioxide 38 mmol/L (22-30); Chloride 90 mmol/L (98-107); Estimated CRCL calculation 98 ml/min; Estimated Glomerular Filt Rate > 60; Glucose 109 mg/dL (75-110); Potassium 2.7 mmol/L (3.4-5.0); Sodium 132 mmol/L (137-145)
[2020-04-25] VITALS (7 sets, daily range): BP systolic 105–132; BP diastolic 60–78; PULSE 66–74; RESP 14–20; TEMP 36.1–36.8; O2SAT 95–100
[2020-04-25 04:57] LABS: Hematocrit 33.8 % (42.0-52.0); Hemoglobin 11.1 g/dL (14.0-18.0); Mean Corpuscular HGB Conc 32.8 g/dl (32-36); Mean Corpuscular Hemoglobin 29.5 pg (26-34); Mean Corpuscular Volume 89.9 fl (80-100); Mean Platelet Volume 9.2 fl (7.4-10.4); Platelet Count Result 453 k/mm3 (150-375); Red Blood Count 3.76 M/mm3 (4.6-6.20); Red Cell Distribution Width 13.9 % (11.5-14.5); White Blood Count 11.6 K/mm3 (4.5-10.0)
[2020-04-25 05:17] LABS: Alanine Aminotransferase 57 U/L (4-50); Albumin Level 3.2 g/dL (3.5-5.1); Alkaline Phosphatase 113 U/L (38-126); Aspartate Amino Transferase 36 U/L (17-59); Bilirubin,Total 0.3 mg/dL (0.2-1.3); Blood Urea Nitrogen 20 mg/dL (9-20); Calcium 9.8 mg/dL (8.4-10.2); Carbon Dioxide 35 mmol/L (22-30); Chloride 92 mmol/L (98-107); Estimated CRCL calculation 98 ml/min; Estimated Glomerular Filt Rate > 60; Glucose 98 mg/dL (75-110); Potassium 3.6 mmol/L (3.4-5.0); Sodium 132 mmol/L (137-145)
[2020-04-25] MEDS: LEVOTHYROXINE SODIUM 75 MCG TABLET PO (06:01)
[2020-04-25] MEDS: LEVOTHYROXINE SODIUM 100 MCG TABLET PO (06:01)
[2020-04-25] MEDS: POTASSIUM CHLORIDE 20 MEQ TABLET.ER 40 MEQ PO (09:23)
[2020-04-25] MEDS: buPROPion HCL SR (12HR) 100 MG TABCR 200 MG PO ×2 (09:23→20:08)
[2020-04-25] MEDS: PAROXETINE 20 MG TABLET 40 MG PO (09:23)
[2020-04-25] MEDS: POLYSACCHARIDE IRON COMPLEX 150 MG CAPSULE PO (09:23)
[2020-04-25] MEDS: SENNOSIDES 8.6 MG TABLET PO ×2 (09:23→20:21)
[2020-04-25] MEDS: FUROSEMIDE 40 MG TABLET PO (09:24)
[2020-04-25] MEDS: MAGNESIUM OXIDE 400 MG TABLET PO (09:24)
[2020-04-25] MEDS: TAMSULOSIN HCL 0.4 MG CAPSULE 0.8 MG PO (09:24)
[2020-04-25] MEDS: DIVALPROEX SODIUM 250 MG TABEC PO ×2 (09:25→20:06)
[2020-04-25] MEDS: FINASTERIDE 5 MG TABLET PO (09:25)
[2020-04-25] MEDS: carvediloL 12.5 MG TABLET PO ×2 (09:25→20:07)
[2020-04-25] MEDS: DIVALPROEX SODIUM 250 MG TABEC 500 MG PO ×2 (09:25→20:06)
[2020-04-25] MEDS: FAMOTIDINE 20 MG/2 ML VIAL IV PUSH ×2 (09:26→20:09)
[2020-04-25] MEDS: MULTIVITAMINS THERAPEUTIC TAB (*BKC) 1 TABLET PO (09:26)
[2020-04-25] MEDS: metOLazone 5 MG TABLET PO (09:26)
[2020-04-25] MEDS: LIDOCAINE 5% PATCH 2 PATCH TRANSDERM (09:32)
[2020-04-25] MEDS: VITAMIN B COMPLEX CAPSULE 1 CAP PO (10:17)
--- NOTE | 2020-04-25 10:46 | PCOTNOTE ---
Attempted to see patient this am, however patient declined. Per patient' , patient needs encouragement and motivation. Encouraged patient to participate, however patient still declined, I don't feel like it.
--- NOTE | 2020-04-25 11:28 | PM.IMPN ---
Progress Note: A&P Assessment and Plan (1) Chest pain: Code(s): R07.9 - Chest pain, unspecified Status: Acute Assessment and Plan: 04/25/20 11:28 Patient is 69-year-old male resident of nursing with history of schizophrenia was sent to emergency department with a complaint chest pain which had been persisting few days prior to coming to emergency depart, patient 3 sets of cardiac enzymes are negative myocardial infarction was ruled out to further evaluate patient's fall and back pain patient had a CTA of the chest there was no pulmonary emboli however patient had a spinal sclerotic lesion, bone scan was done which did not show any malignancy however did show some arthritis, to further evaluate patient was seen by chief sustainability officer oncologist is suspect patient may have multiple myeloma as he has calcium is elevated further workup is in progress, patient is a very poor historian with history of schizophrenia unable to provide detailed history review of symptom. on 04/24 Patient complained of low back pain denied any fever or chills, patient was started on Lidoderm patches for the low back pain, today patient states is feeling better pain is not a severe, awaiting test results to rule out multiple myeloma, will continue PT OT (2) Abnormal CT of spine: Code(s): R93.7 - Abnormal findings on diagnostic imaging of other parts of musculoskeletal system Status: Acute Assessment and Plan: Plan is above seen by chief sustainability officer oncologist suspect multiple myeloma further workup patient pending (3) Seizures: Code(s): R56.9 - Unspecified convulsions Status: Acute Assessment and Plan: Will continue home regimen and monitor (4) Chronic paranoid schizophrenia: Code(s): F20.0 - Paranoid schizophrenia Status: Acute Assessment and Plan: Clinically stable continue home regimen Subjective Date/time seen: 04/25/20 11:28 Patient is 69-year-old male resident of nursing with history of schizophrenia was sent to emergency department with a complaint chest pain which had been persisting few days prior to coming to emergency depart, patient 3 sets of cardiac enzymes are negative myocardial infarction was ruled out to further evaluate patient's fall and back pain patient had a CTA of the chest there was no pulmonary emboli however patient had a spinal sclerotic lesion, bone scan was done which did not show any malignancy however did show some arthritis, to further evaluate patient was seen by chief sustainability officer oncologist is suspect patient may have multiple myeloma as he has calcium is elevated further workup is in progress, patient is a very poor historian with history of schizophrenia unable to provide detailed history review of symptom. on 04/24 Patient complained of low back pain denied any fever or chills, patient was started on Lidoderm patches for the low back pain, today patient states is feeling better pain is not a severe, awaiting test results to rule out multiple myeloma, will continue PT OT Review of Systems Review of Systems: ROS unobtainable: Yes unobtainable due to medical condition Exam Narrative: Exam Narrative: Morbidly obese Const: General: comfortable and no acute distress HENMT: General nose exam: Normal nares present Eyes: General: appearance normal, both eyes and all related structures Sclera: sclerae normal Neck: Neck: supple Resp: Effort & Inspection: normal respiratory effort Auscultation: clear to auscultation bilaterally Cardio: Rate: regular rate Rhythm: regular rhythm GI: Auscultation: normal bowel sounds Skin: General skin exam: normal color Neuro: Sensory Exam: normal sensation Extrem: General: normal to inspection Psych: Affect: Anxious affect present Objective Data Vital Signs Vital Signs: Vital Signs - 24 hr 04/24/20 14:00 04/24/20 20:15 04/24/20 20:35 Temperature 96.8 F L 98.4 F Pulse Rate 63 72 72 Respiratory Rate 18 18 Blood Pressure 12
--- NOTE | 2020-04-25 16:18 | PM.DS ---
DS: Admitting Diagnosis Admitting Diagnosis Admitting Diagnosis: Chest pain, unspecified DS: Summary Time Spent with Patient Time attestation: Total time spent providing and/or coordinating discharge services: DS: Data Data Completed and Pending Labs on day of discharge: Labs from last 24 hours 04/25/20 04/25/20 04/25/20 09:01 04:50 04:50 WBC 11.6 H RBC 3.76 L Hgb 11.1 L Hct 33.8 L MCV 89.9 MCH 29.5 MCHC 32.8 RDW 13.9 Plt Count 453 H MPV 9.2 Sodium 132 L Potassium 3.6 Chloride 92 L Carbon Dioxide 35 H BUN 20 Creatinine 0.80 Estim Creat Clear Calc 98 Estimated GFR > 60 Glucose 98 Calcium 9.8 Total Bilirubin 0.3 AST 36 ALT 57 H Alkaline Phosphatase 113 Total Protein 7.0 Albumin 3.2 L SARS-CoV-2 RNA (RT-PCR) Pending 04/24/20 19:07 WBC RBC Hgb Hct MCV MCH MCHC RDW Plt Count MPV Sodium 132 L Potassium 2.7 L* Chloride 90 L Carbon Dioxide 38 H BUN 19 Creatinine 0.80 Estim Creat Clear Calc 98 Estimated GFR > 60 Glucose 109 Calcium 9.9 Total Bilirubin AST ALT Alkaline Phosphatase Total Protein Albumin SARS-CoV-2 RNA (RT-PCR) Discharge Plan Discharge Attending physician on discharge: Juli Thornton Consulting providers: Ashwin Reardon ; Ramon Coronel Discharging Clinician: Juli Thornton Patient Disposition: NH Long Term/Asst Living Activity: as tolerated Diet: heart healthy Discharge Instructions: Patient to follow discharge care instruction from his surgeon and follow-up as scheduled. Patient to follow-up his primary care doctor as soon as possible Patient Instructions: Antibiotic Form, Dehydration (DC), Hypokalemia (DC) Stand Alone Forms: General Discharge Information Discharge Medications: New lidocaine [Lidoderm] 5 % Adhesive Patch,Medicated 2 patch transdermal DAILY Qty: 20 RF: 0 Continued magnesium oxide 400 mg magnesium Tablet 400 mg PO DAILY RF: 0 levothyroxine [Synthroid] 175 mcg Tablet 175 mcg PO DAILY@0630 Qty: 30 RF: 0 divalproex 500 mg Tablet,Delayed Release (Dr/Ec) 500 mg PO Q12H RF: 0 furosemide 40 mg tablet 40 mg PO DAILY RF: 0 sennosides [senna] 8.6 mg Tablet 8.6 mg PO BID Qty: 0 RF: 0 carvedilol 12.5 mg tablet 12.5 mg PO Q12H RF: 0 fluphenazine HCl 10 mg tablet 10 mg PO TID RF: 0 metolazone 5 mg tablet 5 mg PO DAILY RF: 0 olanzapine 10 mg tablet 10 mg PO DAILY RF: 0 potassium chloride 20 mEq tablet,ER particles/crystals 40 meq PO DAILY RF: 0 tamsulosin 0.4 mg capsule 0.8 mg PO DAILY RF: 0 vitamin B complex Tablet 1 tablet PO DAILY Qty: 0 RF: 0 paroxetine HCl 40 mg tablet 40 mg PO DAILY RF: 0 finasteride 5 mg tablet 5 mg PO DAILY RF: 0 bupropion HCl 200 mg tablet sustained-release 12 hr 200 mg PO Q12H RF: 0 Adults Multivitamin 18 mg iron-400 mcg-25 mcg Tablet 1 tablet PO DAILY Qty: 0 RF: 0 Discontinued polysaccharide iron complex [Poly-Iron] 150 mg iron Capsule 150 mg PO DAILY RF: 0 Date of admission: 04/23/20 11:48 Primary Care Provider: Carlton You Admitting Provider: uJli Thornton Attending physician on admission: Juli Thornton Condition: Improved Quality VTE Prophylaxis VTE prophylaxis: mechanical ordered
[2020-04-25 22:14] LABS: SARS-CoV-2 RNA PCR Negative
[2020-04-26] VITALS (8 sets, daily range): BP systolic 100–122; BP diastolic 58–69; PULSE 64–80; RESP 18–20; TEMP 36.2–37.1; O2SAT 95–97
[2020-04-26] MEDS: LEVOTHYROXINE SODIUM 75 MCG TABLET PO (05:30)
[2020-04-26] MEDS: LEVOTHYROXINE SODIUM 100 MCG TABLET PO (05:31)
[2020-04-26 06:51] LABS: Hematocrit 34.1 % (42.0-52.0); Hemoglobin 11.2 g/dL (14.0-18.0); Mean Corpuscular HGB Conc 32.8 g/dl (32-36); Mean Corpuscular Hemoglobin 29.9 pg (26-34); Mean Corpuscular Volume 90.9 fl (80-100); Mean Platelet Volume 9.6 fl (7.4-10.4); Platelet Count Result 458 k/mm3 (150-375); Red Blood Count 3.75 M/mm3 (4.6-6.20); Red Cell Distribution Width 14.3 % (11.5-14.5); White Blood Count 13.3 K/mm3 (4.5-10.0)
[2020-04-26 07:00] LABS: Alanine Aminotransferase 46 U/L (4-50); Albumin Level 3.4 g/dL (3.5-5.1); Alkaline Phosphatase 109 U/L (38-126); Aspartate Amino Transferase 31 U/L (17-59); Bilirubin,Total 0.3 mg/dL (0.2-1.3); Blood Urea Nitrogen 18 mg/dL (9-20); Calcium 9.5 mg/dL (8.4-10.2); Carbon Dioxide 36 mmol/L (22-30); Chloride 88 mmol/L (98-107); Estimated CRCL calculation 109 ml/min; Estimated Glomerular Filt Rate > 60; Glucose 108 mg/dL (75-110); Potassium 2.7 mmol/L (3.4-5.0); Sodium 131 mmol/L (137-145)
[2020-04-26 08:10] LABS: Magnesium 1.7 mg/dL (1.6-2.3)
[2020-04-26] MEDS: POTASSIUM CHLORIDE 20 MEQ PACKET (FOR LIQUID) 40 MEQ PO ×2 (08:27→17:46)
[2020-04-26] MEDS: LIDOCAINE 5% PATCH 2 PATCH TRANSDERM (09:26)
[2020-04-26] MEDS: POTASSIUM CHLORIDE 20 MEQ TABLET.ER 40 MEQ PO (09:34)
[2020-04-26] MEDS: VITAMIN B COMPLEX CAPSULE 1 CAP PO (09:35)
[2020-04-26] MEDS: MAGNESIUM OXIDE 400 MG TABLET PO (09:35)
[2020-04-26] MEDS: POLYSACCHARIDE IRON COMPLEX 150 MG CAPSULE PO (09:35)
[2020-04-26] MEDS: FUROSEMIDE 40 MG TABLET PO (09:35)
[2020-04-26] MEDS: SENNOSIDES 8.6 MG TABLET PO ×2 (09:35→20:28)
[2020-04-26] MEDS: metOLazone 5 MG TABLET PO (09:36)
[2020-04-26] MEDS: TAMSULOSIN HCL 0.4 MG CAPSULE 0.8 MG PO (09:36)
[2020-04-26] MEDS: buPROPion HCL SR (12HR) 100 MG TABCR 200 MG PO ×2 (09:36→22:48)
[2020-04-26] MEDS: carvediloL 12.5 MG TABLET PO ×2 (09:40→20:34)
[2020-04-26] MEDS: PAROXETINE 20 MG TABLET 40 MG PO (09:40)
[2020-04-26] MEDS: FAMOTIDINE 20 MG/2 ML VIAL IV PUSH ×2 (09:41→20:28)
[2020-04-26] MEDS: FINASTERIDE 5 MG TABLET PO (09:41)
[2020-04-26] MEDS: MULTIVITAMINS THERAPEUTIC TAB (*BKC) 1 TABLET PO (09:41)
--- NOTE | 2020-04-26 11:05 | PC.NURSE ---
At 1105 depakote 750 mg BID was verified as current dosage by JOSE DANIEL Palma via [facility].
[2020-04-26] MEDS: DIVALPROEX SODIUM 250 MG TABEC 750 MG PO ×2 (11:54→20:28)
--- NOTE | 2020-04-26 16:43 | PM.IMPN ---
Progress Note: A&P Assessment and Plan (1) Chest pain: Code(s): R07.9 - Chest pain, unspecified Status: Acute Assessment and Plan: 04/26/20 16:43 Patient is 69-year-old male resident of nursing with history of schizophrenia was sent to emergency department with a complaint chest pain which had been persisting few days prior to coming to emergency depart, patient 3 sets of cardiac enzymes are negative myocardial infarction was ruled out to further evaluate patient's fall and back pain patient had a CTA of the chest there was no pulmonary emboli however patient had a spinal sclerotic lesion, bone scan was done which did not show any malignancy however did show some arthritis, to further evaluate patient was seen by deep sea diver oncologist is suspect patient may have multiple myeloma as he has calcium is elevated further workup is in progress, patient is a very poor historian with history of schizophrenia unable to provide detailed history review of symptom. on 04/24 Patient complained of low back pain denied any fever or chills, patient was started on Lidoderm patches for the low back pain, today patient states is feeling better pain is not a severe, awaiting test results to rule out multiple myeloma, will continue PT OT patient persisting to have hyperkalemia hypomagnesium will continue to supplement (2) Abnormal CT of spine: Code(s): R93.7 - Abnormal findings on diagnostic imaging of other parts of musculoskeletal system Status: Acute Assessment and Plan: Plan is above seen by deep sea diver oncologist suspect multiple myeloma further workup patient pending (3) Seizures: Code(s): R56.9 - Unspecified convulsions Status: Acute Assessment and Plan: Will continue home regimen and monitor (4) Chronic paranoid schizophrenia: Code(s): F20.0 - Paranoid schizophrenia Status: Acute Assessment and Plan: Clinically stable continue home regimen Subjective Date/time seen: 04/26/20 16:43 Patient is 69-year-old male resident of nursing with history of schizophrenia was sent to emergency department with a complaint chest pain which had been persisting few days prior to coming to emergency depart, patient 3 sets of cardiac enzymes are negative myocardial infarction was ruled out to further evaluate patient's fall and back pain patient had a CTA of the chest there was no pulmonary emboli however patient had a spinal sclerotic lesion, bone scan was done which did not show any malignancy however did show some arthritis, to further evaluate patient was seen by deep sea diver oncologist is suspect patient may have multiple myeloma as he has calcium is elevated further workup is in progress, patient is a very poor historian with history of schizophrenia unable to provide detailed history review of symptom. on 04/24 Patient complained of low back pain denied any fever or chills, patient was started on Lidoderm patches for the low back pain, today patient states is feeling better pain is not a severe, awaiting test results to rule out multiple myeloma, will continue PT OT patient persisting to have hyperkalemia hypomagnesium will continue to supplement Review of Systems Review of Systems: ROS unobtainable: Yes unobtainable due to medical condition Exam Narrative: Exam Narrative: Morbidly obese Const: General: comfortable and no acute distress HENMT: General nose exam: Normal nares present Eyes: General: appearance normal, both eyes and all related structures Sclera: sclerae normal Neck: Neck: supple Resp: Effort & Inspection: normal respiratory effort Auscultation: clear to auscultation bilaterally Cardio: Rate: regular rate Rhythm: regular rhythm GI: Auscultation: normal bowel sounds Skin: General skin exam: normal color Neuro: Sensory Exam: normal sensation Other: Patient is mentally challenged Extrem: General: normal to inspection Psych: Affect: Anxious affect present Object
[2020-04-26 17:21] LABS: Blood Urea Nitrogen 16 mg/dL (9-20); Calcium 9.4 mg/dL (8.4-10.2); Carbon Dioxide 38 mmol/L (22-30); Chloride 87 mmol/L (98-107); Estimated CRCL calculation 97 ml/min; Estimated Glomerular Filt Rate > 60; Glucose 95 mg/dL (75-110); Potassium 2.8 mmol/L (3.4-5.0); Sodium 132 mmol/L (137-145)
[2020-04-27 04:00] LABS: Kappa\\Lambda Light Chains 1.22 (0.26-1.65); Lambda Light Chain 47.5 mg/L (5.7-26.3)
[2020-04-27] MEDS: LEVOTHYROXINE SODIUM 100 MCG TABLET PO (05:41)
[2020-04-27] MEDS: LEVOTHYROXINE SODIUM 75 MCG TABLET PO (05:41)
[2020-04-27 05:44] VITALS: BP 117/73; PULSE 76; RESP 14; TEMP 36.1; O2SAT 94
[2020-04-27 08:00] VITALS: PULSE 68; RESP 14; O2SAT 94
[2020-04-27] MEDS: SENNOSIDES 8.6 MG TABLET PO ×2 (08:34→20:50)
[2020-04-27] MEDS: TAMSULOSIN HCL 0.4 MG CAPSULE 0.8 MG PO (08:34)
[2020-04-27] MEDS: FAMOTIDINE 20 MG/2 ML VIAL IV PUSH ×2 (08:35→20:48)
[2020-04-27] MEDS: metOLazone 5 MG TABLET PO (08:35)
[2020-04-27] MEDS: LIDOCAINE 5% PATCH 2 PATCH TRANSDERM (08:35)
[2020-04-27] MEDS: buPROPion HCL SR (12HR) 100 MG TABCR 200 MG PO ×2 (08:35→21:43)
[2020-04-27] MEDS: DIVALPROEX SODIUM 250 MG TABEC 750 MG PO ×2 (08:36→20:50)
[2020-04-27] MEDS: FUROSEMIDE 40 MG TABLET PO (08:36)
[2020-04-27] MEDS: PAROXETINE 20 MG TABLET 40 MG PO (08:36)
[2020-04-27 08:37] VITALS: PULSE 68
[2020-04-27] MEDS: carvediloL 12.5 MG TABLET PO ×2 (08:37→20:51)
[2020-04-27] MEDS: VITAMIN B COMPLEX CAPSULE 1 CAP PO (08:37)
[2020-04-27] MEDS: FINASTERIDE 5 MG TABLET PO (08:37)
[2020-04-27] MEDS: POLYSACCHARIDE IRON COMPLEX 150 MG CAPSULE PO (08:37)
[2020-04-27] MEDS: MULTIVITAMINS THERAPEUTIC TAB (*BKC) 1 TABLET PO (08:37)
[2020-04-27] MEDS: MAGNESIUM OXIDE 400 MG TABLET PO (08:38)
[2020-04-27 09:31] LABS: Hematocrit 33.6 % (42.0-52.0); Hemoglobin 11.3 g/dL (14.0-18.0); Mean Corpuscular HGB Conc 33.6 g/dl (32-36); Mean Corpuscular Hemoglobin 29.8 pg (26-34); Mean Corpuscular Volume 88.7 fl (80-100); Mean Platelet Volume 9.6 fl (7.4-10.4); Platelet Count Result 421 k/mm3 (150-375); Red Blood Count 3.79 M/mm3 (4.6-6.20); Red Cell Distribution Width 14.2 % (11.5-14.5); White Blood Count 13.3 K/mm3 (4.5-10.0)
[2020-04-27 09:45] LABS: Alanine Aminotransferase 37 U/L (4-50); Albumin Level 3.3 g/dL (3.5-5.1); Alkaline Phosphatase 105 U/L (38-126); Aspartate Amino Transferase 35 U/L (17-59); Bilirubin,Total 0.3 mg/dL (0.2-1.3); Blood Urea Nitrogen 13 mg/dL (9-20); Calcium 9.7 mg/dL (8.4-10.2); Carbon Dioxide 33 mmol/L (22-30); Chloride 89 mmol/L (98-107); Estimated CRCL calculation 96 ml/min; Estimated Glomerular Filt Rate > 60; Glucose 157 mg/dL (75-110); Potassium 2.9 mmol/L (3.4-5.0); Sodium 130 mmol/L (137-145)
[2020-04-27 09:47] LABS: Magnesium 1.6 mg/dL (1.6-2.3)
[2020-04-27] MEDS: POTASSIUM CHLORIDE 20 MEQ TABLET.ER 40 MEQ PO ×2 (09:49→16:09)
--- NOTE | 2020-04-27 14:18 | PM.CNNEP ---
Assessment and Plan Assessment and plan (1) Hypokalemia: Code(s): E87.6 - Hypokalemia Status: Acute (2) Chest pain: Code(s): R07.9 - Chest pain, unspecified Status: Acute (3) Chronic paranoid schizophrenia: Code(s): F20.0 - Paranoid schizophrenia Status: Acute (4) Bone lesion: Code(s): M89.9 - Disorder of bone, unspecified Status: Acute (5) Anemia: Code(s): D64.9 - Anemia, unspecified Status: Chronic Assessment and Plan: . Additional Plan Soren has significant hyperkalemia that has been present during this hospitalization as well as some of his previous ones. I have a suspicion that his hypokalemia may be total potassium store depletion due to the fact he was not on and off potassium supplementation in general with his significant diuretic therapy. Furthermore, it is very possible that his oral intake in general may not be significant enough to maintain the balance of his potassium level as well. I suppose it is possible that he may have some underlying condition that makes him susceptible to hypokalemia (hyperaldosteronism, Cushings syndrome, Barter's/Gitlemann's disease...etc). For further evaluation of this, I will check on aldosterone level, renin level, cortisol level, as well as urine electrolytes to calculate a fractional excretion of potassium as well. On the assumption that his potassium level is low due to his diuretics, I will increase his potassium supplementation to twice a day and follow the trend of his repeat potassium levels. If he does not he would require aggressive diuretic therapy for some underlying condition that I am aware of, perhaps the addition of spironolactone may help keep his potassium level stable. We will check an echocardiogram to assess his cardiac function which will hopefully explain why he is on such high dose diuretic therapy in the 1st place. I will continue follow patient with you while remains hospitalized and make further recommendations during his hospital course Thank you for allowing me to participate in the care of this patient. History of Present Illness Reason for Consult Consult date: 04/27/20 Reason for consult: hypokalemia Chief Complaint Chief complaint: Chest pain/hypokalemia/dehydration History of Present Illness Narrative: All the information I have obtained is from review of the electronic medical record as the patient is unable to provide me with any meaningful history that led to his admission/hospitalization due to his current mental status. The patient is a 69-year-old [place] male with a past medical history as outlined below who initially present to [facility] ER with complaints of chest pain. Apparently, the chest pain has been present for least a few days prior to his presentation to the emergency room. Further evaluation during his hospitalization included 3 sets of negative cardiac enzymes as well as a CT scan of his chest with no evidence of a pulmonary embolus. However the CT scan of his chest did demonstrate some spinal sclerotic bone lesions that were somewhat concerning. He subsequently underwent a bone scan which did not show any malignancy however further testing including SPEP and UPEP by Oncology is somewhat concerning for the possibility of multiple myeloma. Throughout his hospitalization, is been noted that he has been having persistent hypokalemia. In fact, on further review of his medical records, on his last hospitalization here [facility] he had issues with hypokalemia as well. From review of his medications, he is on potassium supplementation, magnesium supplementation, as well as diuretics in the form of Lasix and metolazone. He has been requiring 8 aggressive potassium supplementation during this hospitalization with no significant improvement in his serum potassium levels by his a.m. labs for the last several days which subsequently led to renal consultation. Un
[2020-04-27 14:30] VITALS: BP 124/72; PULSE 71; RESP 18; TEMP 36.2; O2SAT 96
[2020-04-27 16:12] LABS: Creatinine Urine 33.6 mg/dL; Total Protein Urine Random 14 mg/dL
[2020-04-27 16:16] LABS: Potassium Urine Random 79.4 meq/L; Sodium Urine Random 19 meq/L
--- NOTE | 2020-04-27 16:35 | PM.IMPN ---
Progress Note: A&P Assessment and Plan (1) Chest pain: Code(s): R07.9 - Chest pain, unspecified Status: Acute Assessment and Plan: 04/27/20 16:35 Patient is 69-year-old male resident of nursing with history of schizophrenia was sent to emergency department with a complaint chest pain which had been persisting few days prior to coming to emergency depart, patient 3 sets of cardiac enzymes are negative myocardial infarction was ruled out to further evaluate patient's fall and back pain patient had a CTA of the chest there was no pulmonary emboli however patient had a spinal sclerotic lesion, bone scan was done which did not show any malignancy however did show some arthritis, to further evaluate patient was seen by wrap turner oncologist is suspect patient may have multiple myeloma as he has calcium is elevated further workup is in progress, patient is a very poor historian with history of schizophrenia unable to provide detailed history review of symptom. on 04/24 Patient complained of low back pain denied any fever or chills, patient was started on Lidoderm patches for the low back pain, today is patient is more somnolent, patient potassium and magnesium are persisting low, discussed with bond clerk patient is on 2 diuretics this adonis possibly contribute to low potassium and magnesium, much detail is available is why the patient on 2 diuretics, as patient is unable to provide detailed history review of symptom will do the cardiac echo to further evaluate, patient is morbidly obese difficult to assess volume overload however chest x-ray does not show pulmonary congestion patient seen by bond clerk and further recommendation to follow, discussed with patient and daughter patient had been taking lasix for longtime and his legs were swallen NH added metozone. will order echo to further evaluate. (2) Abnormal CT of spine: Code(s): R93.7 - Abnormal findings on diagnostic imaging of other parts of musculoskeletal system Status: Acute Assessment and Plan: Plan is above seen by wrap turner oncologist suspect multiple myeloma further workup patient pending (3) Seizures: Code(s): R56.9 - Unspecified convulsions Status: Acute Assessment and Plan: Will continue home regimen and monitor (4) Chronic paranoid schizophrenia: Code(s): F20.0 - Paranoid schizophrenia Status: Acute Assessment and Plan: Clinically stable continue home regimen Subjective Date/time seen: 04/27/20 16:35 Patient is 69-year-old male resident of nursing with history of schizophrenia was sent to emergency department with a complaint chest pain which had been persisting few days prior to coming to emergency depart, patient 3 sets of cardiac enzymes are negative myocardial infarction was ruled out to further evaluate patient's fall and back pain patient had a CTA of the chest there was no pulmonary emboli however patient had a spinal sclerotic lesion, bone scan was done which did not show any malignancy however did show some arthritis, to further evaluate patient was seen by wrap turner oncologist is suspect patient may have multiple myeloma as he has calcium is elevated further workup is in progress, patient is a very poor historian with history of schizophrenia unable to provide detailed history review of symptom. on 04/24 Patient complained of low back pain denied any fever or chills, patient was started on Lidoderm patches for the low back pain, today is patient is more somnolent, patient potassium and magnesium are persisting low, discussed with bond clerk patient is on 2 diuretics this adonis possibly contribute to low potassium and magnesium, much detail is available is why the patient on 2 diuretics, as patient is unable to provide detailed history review of symptom will do the cardiac echo to further evaluate, patient is morbidly obese difficult to assess volume overload however chest x-ray does not show pulmonary congesti
[2020-04-27 16:59] LABS: Blood Urea Nitrogen 13 mg/dL (9-20); Calcium 9.9 mg/dL (8.4-10.2); Carbon Dioxide 35 mmol/L (22-30); Chloride 87 mmol/L (98-107); Estimated CRCL calculation 96 ml/min; Estimated Glomerular Filt Rate > 60; Glucose 104 mg/dL (75-110); Magnesium 1.5 mg/dL (1.6-2.3); Potassium 3.3 mmol/L (3.4-5.0); Sodium 129 mmol/L (137-145)
--- NOTE | 2020-04-27 17:53 | PC.NURSE ---
Patient transfer from IMU received alert and oriented .
[2020-04-27] MEDS: MAGNESIUM SULF 2 GM/WATER 50ML 2 GM/50 ML BAG IVPB (20:45)
[2020-04-27] MEDS: POTASSIUM CHLORIDE 20 MEQ PACKET (FOR LIQUID) 40 MEQ PO (20:46)
[2020-04-27 20:51] VITALS: BP 114/66; PULSE 75; RESP 14; TEMP 36.2; O2SAT 95
[2020-04-27 23:15] VITALS: PULSE 70; O2SAT 94
[2020-04-28] VITALS (8 sets, daily range): BP systolic 104–119; BP diastolic 63–74; PULSE 68–78; RESP 12–20; TEMP 36.1–36.5; O2SAT 92–96
--- NOTE | 2020-04-28 | ECHO_ITS ---
Patient Info Name: Soren Almanzar Age: 79 years : 04/26/1941 Gender: Male Ht: 67 in Wt: 262 lbs BSA: 2.43 m2 HR: 89 bpm BP: 119 / 78 mmHg Technical Quality: Good Exam Date: 04/28/2020 3:39 PM Patient Status: Inpatient Admit Date: 04/23/2020 Staff Ordering Physician: Juli Thornton MD Decision Science Analyst: Pipo Bose, KIEL, RT Attending Provider: Juli Thornton MD Exam Type: CA echo dop color flow w con Study Info Indications I50.9 - Heart failure, unspecified Complete two-dimensional, color flow and Doppler transthoracic echocardiogram is performed with contrast to opacify the left ventricle and to improve the deliniation of the left ventricle endocardial borders. Summary 1. Technically difficult study, poor echocardiographic windows. Echo contrast was used. Normal LV size, [id number] LVH, normal LV systolic function with ejection fraction visually estimated at about 65-70%. Mild RV enlargement with hypokinesis. Normal mitral valve structure, no significant MR. Aortic valve not well visualized, no stenosis by Doppler. Tricuspid valve not well visualized, unable to assess RVSP due to inadequate TR jet velocity. Left Ventricle Left ventricular chamber dimension is normal. Left ventricular systolic function is normal, estimated at 65-70%. There is mildly increased left ventricular wall thickness. Left ventricular septal wall motion is normal. The left ventricular diastolic function is grade I diastolic dysfunction. Right Ventricle Right ventricular chamber dimension is mildly enlarged. Right ventricular systolic function is reduced. Left Atria Left atrial chamber dimension is normal. Right Atria Right atrial chamber dimension is normal. Aortic Valve The aortic valve is not well visualized. There is no aortic valve stenosis. Pulmonic Valve The pulmonic valve is not well visualized. Mitral Valve The mitral valve has normal leaflets. There is trace mitral valve regurgitation. Tricuspid Valve The tricuspid valve leaflets are not well visualized. There is no tricuspid valve regurgitation. Pericardium/Pleural There is small pericardial effusion. Aorta The aortic root size at the sinus of Valsalva is normal. The prox ascending aorta size is normal. Left Ventricular Outflow Tract Name Value Normal LVOT 2D LVOT Diameter 2.10 cm LVOT Doppler LVOT Peak Gradient 3 mmHg LVOT Mean Gradient 2 mmHg LVOT VTI 16.38 cm LVOT VTI/AV VTI Ratio 0.88 LVOT Stroke Volume 56.67 ml LVOT CO 3.84 l/min LVOT CI 1.58 L/min/m2 Mitral Valve Name Value Normal MV Doppler MV Decel [place] 113.75 cm/s2 MV PHT 0
[2020-04-28 00:13] LABS: Albumin 2.3 g/dL (3.8-4.8); Alpha 1 Globulin 0.4 g/dL (0.2-0.3); Beta 1 Globulin 0.5 g/dL (0.4-0.6); Gamma Globulin 1.5 g/dL (0.8-1.7); Protein, Total 6.2 g/dL (6.1-8.1)
[2020-04-28] MEDS: LEVOTHYROXINE SODIUM 75 MCG TABLET PO (05:37)
[2020-04-28] MEDS: LEVOTHYROXINE SODIUM 100 MCG TABLET PO (05:37)
[2020-04-28 06:16] LABS: Hematocrit 33.7 % (42.0-52.0); Hemoglobin 11.3 g/dL (14.0-18.0); Mean Corpuscular HGB Conc 33.5 g/dl (32-36); Mean Corpuscular Hemoglobin 29.6 pg (26-34); Mean Corpuscular Volume 88.2 fl (80-100); Mean Platelet Volume 9.5 fl (7.4-10.4); Platelet Count Result 465 k/mm3 (150-375); Red Blood Count 3.82 M/mm3 (4.6-6.20); Red Cell Distribution Width 14.2 % (11.5-14.5); White Blood Count 16.1 K/mm3 (4.5-10.0)
[2020-04-28 07:39] LABS: Alanine Aminotransferase 42 U/L (4-50); Albumin Level 3.4 g/dL (3.5-5.1); Alkaline Phosphatase 129 U/L (38-126); Aspartate Amino Transferase 46 U/L (17-59); Bilirubin,Total 0.4 mg/dL (0.2-1.3); Blood Urea Nitrogen 15 mg/dL (9-20); Calcium 10.1 mg/dL (8.4-10.2); Carbon Dioxide 32 mmol/L (22-30); Chloride 90 mmol/L (98-107); Estimated CRCL calculation 97 ml/min; Estimated Glomerular Filt Rate > 60; Glucose 113 mg/dL (75-110); Potassium 3.8 mmol/L (3.4-5.0); Sodium 131 mmol/L (137-145)
--- NOTE | 2020-04-28 08:22 | PM.PNNEP ---
Progress Note: A&P Assessment and Plan (1) Hypokalemia: Code(s): E87.6 - Hypokalemia Status: Acute Assessment and Plan: Hypokalemia. Cortisol pending. Aldosterone pending. Potassium is high. Probably due to diuretics. Higher dose of potassium has lead to a better Potassium. Potassium is better today. Magnesium was low yesterday on repeat. supplement this is also due to the diuretics in all likelihoodl The patient is on diuretics because of edema I suppose. It is not clear from the patient. He is a poor historian. An echocardiogram has been ordered. I think a good way to go would be to use spironolactone instead of metolazone. (2) Chest pain: Code(s): R07.9 - Chest pain, unspecified Status: Acute Assessment and Plan: No complaints today (3) Chronic paranoid schizophrenia: Code(s): F20.0 - Paranoid schizophrenia Status: Acute (4) Bone lesion: Code(s): M89.9 - Disorder of bone, unspecified Status: Acute Assessment and Plan: Evaluation per hospitalist (5) Anemia: Code(s): D64.9 - Anemia, unspecified Status: Chronic Assessment and Plan: . Hemoglobin is mildly low. Check iron studies. Additional Plan Subjective Date/time seen: 04/28/20 08:22 Interval history: Patient is on BiPAP. He is alert and looks comfortable. He is not very conversive. Review of Systems Cardiovascular: Cardiovascular: Reports no additional cardiovascular complaints Respiratory: Respiratory: Reports no additional respiratory complaints Gastrointestinal: Gastrointestinal: Reports no additional gastrointestinal complaints Genitourinary: Genitourinary: Reports no additional male genitourinary complaints Exam Narrative: Exam Narrative: WDWN in NAD skin no rash head ncat lungs clear cor reg no rub abd BS+ nontender and soft ext no edema. Objective Data Vital Signs Vital Signs: Vital Signs - 24 hr 04/27/20 08:37 04/27/20 14:30 04/27/20 20:51 Temperature 36.2 C L 36.2 C L Pulse Rate 68 71 75 Respiratory Rate 18 14 Blood Pressure 124/72 114/66 Pulse Oximetry 96 95 04/27/20 23:15 04/28/20 05:52 Temperature 36.1 C L Pulse Rate 70 78 Respiratory Rate 12 Blood Pressure 119/69 Pulse Oximetry 94 96 Intake/Output Intake/Output: Intake & Output 04/25/20 04/26/20 04/27/20 04/28/20 23:59 23:59 23:59 23:59 Intake Total 1170 2600 2530 150 Output Total 600 300 Balance 1170 2000 2230 150 Meds/Results Medications: Active Medications Generic Name Dose Route Start Last Admin Trade Name Jamila PRN Reason Stop Dose Admin Bupropion HCl 200 mg 04/22/20 21:00 04/27/20 21:43 Wellbutrin-Sr (12hr) PO 200 mg Q12HR BOSSMAN Administration Carvedilol 12.5 mg 04/22/20 21:00 04/27/20 20:51 Coreg PO 12.5 mg Q12HR BOSSMAN Administration Divalproex Sodium 750 mg 04/26/20 11:15 04/27/20 20:50 Depakote Ec Tab PO 750 mg Q12HR BOSSMAN Administration Famotidine 20 mg 04/22/20 21:00 04/27/20 20:48 Pepcid Iv IV PUSH 20 mg Q12HR BOSSMAN Administration Finasteride 5 mg 04/23/20 09:00 04/27/20 08:37 Proscar PO 5 mg DAILY BOSSMAN Administration Fluphenazine HCl 10 mg 04/22/20 17:00 04/27/20 16:04 Fluphenazine Hcl PO 05/23/20 17:01 10 mg TID BOSSMAN Administration Furosemide 40 mg 04/23/20 09:00 04/27/20 08:36 Lasix Tablet PO 40 mg DAILY BOSSMAN Administration Levothyroxine Sodium 100 mcg 04/23/20 06:30 04/28/20 05:37 Synthroid PO 05/23/20 06:31 100 mcg DAILY@0630 BOSSMAN Administration Levothyroxine Sodium 75 mcg 04/23/20 06:30 04/28/20 05:37 Synthroid PO 75 mcg DAILY@0630 BOSSMAN Administration Lidocaine 2 patch 04/24/20 09:00 04/27/20 08:35 Lidoderm TRANSDERM 2 patch DAILY BOSSMAN Administration Magnesium Oxide 400 mg 04/23/20 09:00 04/27/20 08:38 Mag-Ox PO 400 mg DAILY BOSSMAN Administration Metolazone 5 mg 04/23/20 09:00
[2020-04-28] MEDS: carvediloL 12.5 MG TABLET PO ×2 (08:41→20:34)
[2020-04-28] MEDS: LIDOCAINE 5% PATCH 2 PATCH TRANSDERM (08:41)
[2020-04-28] MEDS: FINASTERIDE 5 MG TABLET PO (08:43)
[2020-04-28] MEDS: FAMOTIDINE 20 MG/2 ML VIAL IV PUSH ×2 (08:43→20:34)
[2020-04-28] MEDS: DIVALPROEX SODIUM 250 MG TABEC 750 MG PO ×2 (08:43→20:34)
[2020-04-28] MEDS: VITAMIN B COMPLEX CAPSULE 1 CAP PO (08:43)
[2020-04-28] MEDS: SENNOSIDES 8.6 MG TABLET PO ×2 (08:44→20:34)
[2020-04-28] MEDS: FUROSEMIDE 40 MG TABLET PO (08:44)
[2020-04-28] MEDS: POTASSIUM CHLORIDE 20 MEQ TABLET.ER PO ×2 (08:44→17:19)
[2020-04-28] MEDS: TAMSULOSIN HCL 0.4 MG CAPSULE 0.8 MG PO (08:44)
[2020-04-28] MEDS: PAROXETINE 20 MG TABLET 40 MG PO (08:45)
[2020-04-28] MEDS: MAGNESIUM OXIDE 400 MG TABLET PO (08:45)
[2020-04-28] MEDS: MULTIVITAMINS THERAPEUTIC TAB (*BKC) 1 TABLET PO (08:46)
[2020-04-28] MEDS: POLYSACCHARIDE IRON COMPLEX 150 MG CAPSULE PO (08:47)
[2020-04-28] MEDS: MAGNESIUM SULF 1 GM/D5W 100 ML 1 GM/100 ML BAG IVPB (08:51)
[2020-04-28] MEDS: SPIRONOLACTONE 25 MG TABLET PO (08:52)
[2020-04-28] MEDS: buPROPion HCL SR (12HR) 100 MG TABCR 200 MG PO ×2 (09:23→20:33)
[2020-04-28 11:40] LABS: Magnesium 2.1 mg/dL (1.6-2.3)
[2020-04-28] MEDS: PERFLUTREN LIPID MICROSPHERES 1.5 ML VIAL DILUTED TO 10 ML TOTAL VOLUME IV PUSH (13:10)
[2020-04-28 16:20] LABS: Potassium 3.2 mmol/L (3.4-5.0)
[2020-04-28 17:00] LABS: SARS-CoV-2 RNA PCR Negative
--- NOTE | 2020-04-28 17:19 | WPDONCPN ---
Progress Note: A/P - Additional Plan Sclerotic bone lesion involving L1-L4. CT scan done previously showed no evidence of primary or metastatic disease other than bone lesion and compression fracture of L5 and T12 vertebra. Multiple myeloma testing showed no monoclonal protein seen likely immune reactive response. Findings are not consistent with multiple myeloma but immunofixation testing is still pending. I have discussed this with Dr. Thornton. No need for bone marrow biopsy. - Time Spent With Patient Total time spent is greater than 50% in coordination of care (as documented) at patient's floor/unit and/or counseling patient: 15 - 25 minutes Subjective Interval history: Bone lesions Anemia Hypokalemia Review of Systems - Review of Systems Patient remains slightly sleepy and drowsy and not able to communicate clearly. According to nursing staff patient is hard of hearing. He does not have any fevers and chills. He looks quite comfortable. - Neurologic Reports system reviewed and no additional complaints, except as documented, Reports hearing normal Exam Vital signs: Temp Pulse Resp BP Pulse Ox 36.5 C 68 20 104/63 96 04/28/20 14:00 04/28/20 14:00 04/28/20 14:00 04/28/20 14:00 04/28/20 14:00 Narrative: Lungs are clear to auscultation bilaterally Cardiovascular regular rate rhythm no murmurs Abdomen soft nontender nondistended Extremities mild edema PN: Objective Data - Labs CBC & Chem 7: 04/28/20 05:43 04/28/20 16:04 Labs: Laboratory Results - last 24 hr 04/24/20 04/28/20 04/28/20 05:14 05:43 05:43 WBC 16.1 H RBC 3.82 L Hgb 11.3 L Hct 33.7 L MCV 88.2 MCH 29.6 MCHC 33.5 RDW 14.2 Plt Count 465 H MPV 9.5 Sodium Potassium Chloride Carbon Dioxide BUN Creatinine Estim Creat Clear Calc Estimated GFR Glucose Calcium Magnesium Total Bilirubin AST ALT Alkaline Phosphatase Total Protein 6.2 Albumin 2.3 L Uoplw-4-Qnvfyugfw 0.4 H Xxigb-7-Frszzovic 1.0 H Jdgd-4-Wraqfuui 0.5 Zwtr-1-Splkesol 0.5 Gamma Globulins 1.5 Abnorm Protein Band 1 see below Abnorm Protein Band 3 Not Reportable PEP Interpretation see below A Random Cortisol 24.30 04/28/20 04/28/20 04/28/20 05:43 11:01 16:04 WBC RBC Hgb Hct MCV MCH MCHC RDW Plt Count MPV Sodium 131 L Potassium 3.8 3.2 L Chloride 90 L Carbon Dioxide 32 H BUN 15 Creatinine 0.80 Estim Creat Clear Calc 97 Estimated GFR > 60 Glucose 113 H Calcium 10.1 Magnesium 2.1 Total Bilirubin 0.4 AST 46 ALT 42 Alkaline Phosphatase 129 H Total Protein 8.0 Albumin 3.4 L Duzij-6-Olbjfuwyr Tuops-7-Ijgqvyduz Siqp-1-Cqnjkdfe Fqnr-0-Ivzqmcoj Gamma Globulins Abnorm Protein Band 1 Abnorm Protein Band 3 PEP Interpretation Random Cortisol
[2020-04-28 17:38] LABS: Alveolar/Arterial O2 Gradient 28.6 mmHg; Base Excess ABG 6.5 mEq/l (+/-2.0); Fractional Inspired Oxygen 21 %; HCO3 ABG 30.2 mEq/l (22.0-26.0); Oxygen Content ABG 16.3 %vol (16.0-22.0); Oxygen Saturation ABG 95.9 % (95.0-100.0); Oxyhemoglobin 94.5 % THb (90.0-100.0); PCO2 ABG 39.7 mmHg (35.0-45.0); PO2 ABG 73.6 mmHg (80.0-100.0); Total Hemoglobin 12.2 g/dL (12.0-18.0); pH ABG 7.499 (7.350-7.450)
[2020-04-28 17:39] LABS: Device ROOM AIR; Modified Allen's Test Pass; Site Drawn LEFT RADIAL
--- NOTE | 2020-04-28 18:26 | PM.IMPN ---
Progress Note: A&P Assessment and Plan (1) Chest pain: Code(s): R07.9 - Chest pain, unspecified Status: Acute Assessment and Plan: 04/28/20 18:26 Patient is 69-year-old male resident of nursing with history of schizophrenia was sent to emergency department with a complaint chest pain which had been persisting few days prior to coming to emergency depart, patient 3 sets of cardiac enzymes are negative myocardial infarction was ruled out to further evaluate patient's fall and back pain patient had a CTA of the chest there was no pulmonary emboli however patient had a spinal sclerotic lesion, bone scan was done which did not show any malignancy however did show some arthritis, to further evaluate patient was seen by splunk dashboard developer oncologist is suspect patient may have multiple myeloma as he has calcium is elevated further workup is in progress, patient is a very poor historian with history of schizophrenia unable to provide detailed history review of symptom. on 04/24 Patient complained of low back pain denied any fever or chills, patient was started on Lidoderm patches for the low back pain, today is patient is more somnolent, patient potassium and magnesium are persisting low, discussed with semiconductor processing group leader patient is on 2 diuretics this adonis possibly contribute to low potassium and magnesium, much detail is available is why the patient on 2 diuretics, as patient is unable to provide detailed history review of symptom will do the cardiac echo to further evaluate, patient is morbidly obese difficult to assess volume overload however chest x-ray does not show pulmonary congestion patient seen by semiconductor processing group leader and further recommendation to follow, discussed with patient and daughter patient had been taking lasix for longtime and his legs were swallen NH added metozone. Today again patient is seen semiconductor processing group leader and suspect hypokalemia hypo magnesium most likely secondary to diuresis with Lasix and metolazone, today semiconductor processing group leader added spironolactone to spare potassium, patient today is more more somnolent is not as cooperative ABG was done which is essentially same as when he arrived, evaluate do the CT scan of the head, continue PT OT and increase the patient to participate. Patient with history of seizure and and schizophrenia patient is on several medication this may cause somnolent will consult neurologist further recommendation. (2) Abnormal CT of spine: Code(s): R93.7 - Abnormal findings on diagnostic imaging of other parts of musculoskeletal system Status: Acute Assessment and Plan: Plan is above seen by splunk dashboard developer oncologist suspect multiple myeloma further workup patient pending (3) Seizures: Code(s): R56.9 - Unspecified convulsions Status: Acute Assessment and Plan: Will continue home regimen and monitor (4) Chronic paranoid schizophrenia: Code(s): F20.0 - Paranoid schizophrenia Status: Acute Assessment and Plan: Clinically stable continue home regimen Subjective Date/time seen: 04/28/20 18:26 Patient is 69-year-old male resident of nursing with history of schizophrenia was sent to emergency department with a complaint chest pain which had been persisting few days prior to coming to emergency depart, patient 3 sets of cardiac enzymes are negative myocardial infarction was ruled out to further evaluate patient's fall and back pain patient had a CTA of the chest there was no pulmonary emboli however patient had a spinal sclerotic lesion, bone scan was done which did not show any malignancy however did show some arthritis, to further evaluate patient was seen by splunk dashboard developer oncologist is suspect patient may have multiple myeloma as he has calcium is elevated further workup is in progress, patient is a very poor historian with history of schizophrenia unable to provide detailed history review of symptom. on 04/24 Patient complained of low back pain denied any fever or chills, patient was star
[2020-04-29] VITALS (8 sets, daily range): BP systolic 93–110; BP diastolic 59–68; PULSE 62–75; RESP 14–18; TEMP 36.4–36.7; O2SAT 94–98; BMI 40.8
[2020-04-29 06:03] LABS: Hemoglobin 11.2 g/dL (14.0-18.0); Mean Corpuscular HGB Conc 31.1 g/dl (32-36); Mean Corpuscular Hemoglobin 28.7 pg (26-34); Mean Corpuscular Volume 92.3 fl (80-100); Mean Platelet Volume 10.3 fl (7.4-10.4); Platelet Count Result 370 k/mm3 (150-375); Red Cell Distribution Width 14.7 % (11.5-14.5); White Blood Count 11.6 K/mm3 (4.5-10.0)
[2020-04-29 06:20] LABS: Alanine Aminotransferase 49 U/L (4-50); Albumin Level 3.4 g/dL (3.5-5.1); Alkaline Phosphatase 124 U/L (38-126); Aspartate Amino Transferase 40 U/L (17-59); Bilirubin,Total 0.3 mg/dL (0.2-1.3); Blood Urea Nitrogen 24 mg/dL (9-20); Calcium 9.6 mg/dL (8.4-10.2); Carbon Dioxide 32 mmol/L (22-30); Chloride 91 mmol/L (98-107); Estimated CRCL calculation 86 ml/min; Estimated Glomerular Filt Rate > 60; Glucose 108 mg/dL (75-110); Phosphorus 4.9 mg/dL (2.5-4.5); Sodium 131 mmol/L (137-145)
[2020-04-29] MEDS: LEVOTHYROXINE SODIUM 100 MCG TABLET PO (06:34)
[2020-04-29] MEDS: LEVOTHYROXINE SODIUM 75 MCG TABLET PO (06:34)
[2020-04-29] MEDS: FAMOTIDINE 20 MG/2 ML VIAL IV PUSH ×2 (08:19→20:31)
[2020-04-29] MEDS: POTASSIUM CHLORIDE 20 MEQ TABLET PO (08:20)
[2020-04-29] MEDS: LIDOCAINE 5% PATCH 2 PATCH TRANSDERM (08:20)
[2020-04-29] MEDS: DIVALPROEX SODIUM 250 MG TABEC 750 MG PO ×2 (08:21→20:31)
[2020-04-29] MEDS: buPROPion HCL SR (12HR) 100 MG TABCR 200 MG PO ×2 (08:21→20:32)
[2020-04-29] MEDS: POTASSIUM CHLORIDE 20 MEQ TABLET.ER PO ×2 (08:21→17:13)
[2020-04-29] MEDS: TAMSULOSIN HCL 0.4 MG CAPSULE 0.8 MG PO (08:21)
[2020-04-29] MEDS: MULTIVITAMINS THERAPEUTIC TAB (*BKC) 1 TABLET PO (08:21)
[2020-04-29] MEDS: MAGNESIUM OXIDE 400 MG TABLET PO (08:21)
[2020-04-29] MEDS: PAROXETINE 20 MG TABLET 40 MG PO (08:22)
[2020-04-29] MEDS: SENNOSIDES 8.6 MG TABLET PO ×2 (08:22→20:32)
[2020-04-29] MEDS: carvediloL 12.5 MG TABLET PO ×2 (08:22→20:32)
[2020-04-29] MEDS: FUROSEMIDE 40 MG TABLET PO (08:22)
[2020-04-29] MEDS: FINASTERIDE 5 MG TABLET PO (08:22)
[2020-04-29] MEDS: SPIRONOLACTONE 25 MG TABLET PO (08:22)
[2020-04-29] MEDS: POLYSACCHARIDE IRON COMPLEX 150 MG CAPSULE PO (08:22)
[2020-04-29] MEDS: VITAMIN B COMPLEX CAPSULE 1 CAP PO (08:22)
--- NOTE | 2020-04-29 08:31 | PM.PNNEP ---
Progress Note: A&P Assessment and Plan (1) Hypokalemia: Code(s): E87.6 - Hypokalemia Status: Acute Assessment and Plan: Hypokalemia. Cortisol pending. Aldosterone pending. Potassium is low. Probably due to diuretics. now on spironolactone. low again today so give one extra dose K. check again tomorrow. Magnesium was low . repeat tomorrow. this is also due to the diuretics in all likelihoodl The patient is on diuretics because of edema I suppose. It is not clear from the patient. He is a poor historian. An echocardiogram shows no major cardiac issue. conitnue loop diuretic plius spinonolactone. not a whole lot of edema. reduce the former. (2) Chest pain: Code(s): R07.9 - Chest pain, unspecified Status: Acute Assessment and Plan: No complaints today (3) Chronic paranoid schizophrenia: Code(s): F20.0 - Paranoid schizophrenia Status: Acute (4) Bone lesion: Code(s): M89.9 - Disorder of bone, unspecified Status: Acute Assessment and Plan: Evaluation per hospitalist (5) Anemia: Code(s): D64.9 - Anemia, unspecified Status: Chronic Assessment and Plan: . Hemoglobin is mildly low. Check iron studies. Additional Plan Subjective Date/time seen: 04/29/20 08:31 Interval history: Patient is more interactive today. He denies shortness of breath. Review of Systems Cardiovascular: Cardiovascular: Reports no additional cardiovascular complaints Respiratory: Respiratory: Reports no additional respiratory complaints Gastrointestinal: Gastrointestinal: Reports no additional gastrointestinal complaints Genitourinary: Genitourinary: Reports no additional male genitourinary complaints Exam Narrative: Exam Narrative: WDWN in NAD skin no rash head ncat lungs clear cor reg no rub abd BS+ nontender and soft ext no edema. Objective Data Vital Signs Vital Signs: Vital Signs - 24 hr 04/28/20 08:41 04/28/20 09:15 04/28/20 14:00 Temperature 36.5 C Pulse Rate 76 76 68 Respiratory Rate 14 20 Blood Pressure 104/63 Pulse Oximetry 96 96 04/28/20 20:30 04/28/20 20:34 04/28/20 21:00 Temperature 36.3 C L Pulse Rate 78 68 75 Respiratory Rate 14 14 Blood Pressure 116/74 Pulse Oximetry 92 93 04/28/20 23:35 04/29/20 01:20 04/29/20 04:02 Temperature 36.4 C Pulse Rate 75 71 72 Respiratory Rate 18 Blood Pressure 108/64 Pulse Oximetry 93 95 98 04/29/20 08:22 Temperature Pulse Rate 71 Respiratory Rate Blood Pressure Pulse Oximetry Intake/Output Intake/Output: Intake & Output 04/26/20 04/27/20 04/28/20 04/29/20 23:59 23:59 23:59 23:59 Intake Total 2600 2530 740 100 Output Total 600 300 Balance 2000 2230 740 100 Meds/Results Medications: Active Medications Generic Name Dose Route Start Last Admin Trade Name Kendellq PRN Reason Stop Dose Admin Bupropion HCl 200 mg 04/22/20 21:00 04/29/20 08:21 Wellbutrin-Sr (12hr) PO 200 mg Q12HR BOSSMAN Administration Carvedilol 12.5 mg 04/22/20 21:00 04/29/20 08:22 Coreg PO 12.5 mg Q12HR BOSSMAN Administration Divalproex Sodium 750 mg 04/26/20 11:15 04/29/20 08:21 Depakote Ec Tab PO 750 mg Q12HR BOSSMAN Administration Famotidine 20 mg 04/22/20 21:00 04/29/20 08:19 Pepcid Iv IV PUSH 20 mg Q12HR BOSSMAN Administration Finasteride 5 mg 04/23/20 09:00 04/29/20 08:22 Proscar PO 5 mg DAILY BOSSMAN Administration Fluphenazine HCl 10 mg 04/22/20 17:00 04/29/20 08:21 Fluphenazine Hcl PO 05/23/20 17:01 10 mg TID BOSSMAN Administration Furosemide 40 mg 04/23/20 09:00 04/29/20 08:22 Lasix Tablet PO 40 mg DAILY BOSSMAN Administration Levothyroxine Sodium 100 mcg 04/23/20 06:30 04/29/20 06:34 Synthroid PO 05/23/20 06:31 100 mcg DAILY@0630 BOSSMAN Administration Levothyroxine Sodium 75 mcg 04/23/20 06:30 04/29/20 06:34 Synthroid PO 75 mcg DAILY@0630 [facility]
--- NOTE | 2020-04-29 14:06 | PM.IMPN ---
Progress Note: A&P Assessment and Plan (1) Chest pain: Code(s): R07.9 - Chest pain, unspecified Status: Acute Assessment and Plan: 04/29/20 14:06 Patient is 69-year-old male resident of nursing with history of schizophrenia was sent to emergency department with a complaint chest pain which had been persisting few days prior to coming to emergency depart, patient 3 sets of cardiac enzymes are negative myocardial infarction was ruled out to further evaluate patient's fall and back pain patient had a CTA of the chest there was no pulmonary emboli however patient had a spinal sclerotic lesion, bone scan was done which did not show any malignancy however did show some arthritis, to further evaluate patient was seen by operations coordinator oncologist is suspect patient may have multiple myeloma as he has calcium is elevated further workup is in progress, patient is a very poor historian with history of schizophrenia unable to provide detailed history review of symptom. on 04/24 Patient complained of low back pain denied any fever or chills, patient was started on Lidoderm patches for the low back pain, today is patient is more somnolent, patient potassium and magnesium are persisting low, discussed with water plant pump operator supervisor patient is on 2 diuretics this adonis possibly contribute to low potassium and magnesium, much detail is available is why the patient on 2 diuretics, as patient is unable to provide detailed history review of symptom will do the cardiac echo to further evaluate, patient is morbidly obese difficult to assess volume overload however chest x-ray does not show pulmonary congestion patient seen by water plant pump operator supervisor and further recommendation to follow, discussed with patient and daughter patient had been taking lasix for longtime and his legs were swallen NH added metozone. patient is seen water plant pump operator supervisor and suspect hypokalemia hypomagnesium most likely secondary to diuresis with Lasix and metolazone, on 04/28 water plant pump operator supervisor added spironolactone to spare potassium stopped metolazone, family is quite concerned as patient was able to interact and ambulate however since admitted this time patient is quite lathergic and not as interactive, to further evaluate we did ct of brain which did not show any acute finding, cardiact was essentially normal, TSH is nomal, patient has been taking depokote 750mg BID and psych medication including zyprexa 10mg BID which he is been taking for sometime, most likely patient is lathergic due to dual dirutics with metalozane and laxis which had depeleted potassium and magneusim, which have been replaced now trending close to normal, today patient little more interactive, will continue to monitor patient, provide PT/OT and communicate with patient family Jada. (2) Abnormal CT of spine: Code(s): R93.7 - Abnormal findings on diagnostic imaging of other parts of musculoskeletal system Status: Acute Assessment and Plan: Plan is above seen by operations coordinator oncologist suspect multiple myeloma further workup patient pending (3) Seizures: Code(s): R56.9 - Unspecified convulsions Status: Acute Assessment and Plan: Will continue home regimen and monitor (4) Chronic paranoid schizophrenia: Code(s): F20.0 - Paranoid schizophrenia Status: Acute Assessment and Plan: Clinically stable continue home regimen Subjective Date/time seen: 04/29/20 14:06 Patient is 69-year-old male resident of nursing with history of schizophrenia was sent to emergency department with a complaint chest pain which had been persisting few days prior to coming to emergency depart, patient 3 sets of cardiac enzymes are negative myocardial infarction was ruled out to further evaluate patient's fall and back pain patient had a CTA of the chest there was no pulmonary emboli however patient had a spinal sclerotic lesion, bone scan was done which did not show any malignancy however did show some arthritis, to further evalu
[2020-04-29] MEDS: SODIUM CHLORIDE 500 MG TABLET PO (18:52)
[2020-04-30] VITALS (8 sets, daily range): BP systolic 106–158; BP diastolic 68–77; PULSE 60–88; RESP 14–16; TEMP 36.3–36.8; O2SAT 94–100; BMI 10.0
[2020-04-30] MEDS: LEVOTHYROXINE SODIUM 75 MCG TABLET PO (05:30)
[2020-04-30] MEDS: LEVOTHYROXINE SODIUM 100 MCG TABLET PO (05:30)
[2020-04-30 06:43] LABS: Albumin Level 3.4 g/dL (3.5-5.1); Blood Urea Nitrogen 30 mg/dL (9-20); Calcium 9.9 mg/dL (8.4-10.2); Carbon Dioxide 33 mmol/L (22-30); Chloride 92 mmol/L (98-107); Estimated CRCL calculation 86 ml/min; Estimated Glomerular Filt Rate > 60; Glucose 113 mg/dL (75-110); Potassium 3.2 mmol/L (3.4-5.0); Sodium 132 mmol/L (137-145)
[2020-04-30] MEDS: PAROXETINE 20 MG TABLET 40 MG PO (09:06)
[2020-04-30] MEDS: FUROSEMIDE 20 MG TABLET PO (09:06)
[2020-04-30] MEDS: POTASSIUM CHLORIDE 20 MEQ TABLET.ER PO ×2 (09:06→17:17)
[2020-04-30] MEDS: LIDOCAINE 5% PATCH 2 PATCH TRANSDERM (09:07)
[2020-04-30] MEDS: MAGNESIUM OXIDE 400 MG TABLET PO (09:07)
[2020-04-30] MEDS: POLYSACCHARIDE IRON COMPLEX 150 MG CAPSULE PO (09:07)
[2020-04-30] MEDS: TAMSULOSIN HCL 0.4 MG CAPSULE 0.8 MG PO (09:08)
[2020-04-30] MEDS: FINASTERIDE 5 MG TABLET PO (09:08)
[2020-04-30] MEDS: DIVALPROEX SODIUM 250 MG TABEC 750 MG PO ×2 (09:08→20:41)
[2020-04-30] MEDS: VITAMIN B COMPLEX CAPSULE 1 CAP PO (09:08)
[2020-04-30] MEDS: SPIRONOLACTONE 25 MG TABLET PO (09:08)
[2020-04-30] MEDS: MULTIVITAMINS THERAPEUTIC TAB (*BKC) 1 TABLET PO (09:09)
[2020-04-30] MEDS: SODIUM CHLORIDE 500 MG TABLET PO ×2 (09:09→17:18)
[2020-04-30] MEDS: SENNOSIDES 8.6 MG TABLET PO ×2 (09:09→20:41)
[2020-04-30] MEDS: carvediloL 12.5 MG TABLET PO ×2 (09:09→20:43)
[2020-04-30] MEDS: FAMOTIDINE 20 MG/2 ML VIAL IV PUSH ×2 (09:09→20:42)
[2020-04-30] MEDS: buPROPion HCL SR (12HR) 100 MG TABCR 200 MG PO ×2 (09:10→20:42)
[2020-04-30 09:48] LABS: Magnesium 1.9 mg/dL (1.6-2.3)
[2020-04-30 10:10] LABS: Valproic Acid 59.9 ug/mL (50-120)
--- NOTE | 2020-04-30 12:07 | CONS_ITS ---
DATE OF CONSULTATION: HISTORY: This 69 years old has been admitted to [facility] with the complaint of chest pain with hypokalemia and dehydration on transfer on the road towards skilled nursing with initial documentation of mechanical fall at the skilled nursing with resultant wrist pain as well in addition to history of chronic back and lower back pain. Additionally, the patient is known to have schizophrenia. The patient had been also complaining of chest pain. On initial evaluation, he was found to have normal T4. He is on levothyroxine at the skilled nursing. He was noted to have polyarticular arthritis of the right wrist, chronic compression fracture of T11, T12, and L5 for which he was receiving the medication. He had ongoing list of multiple problems, particularly anemia, anxiety, benign prostatic hypertrophy, depression, GERD, glaucoma, hypothyroidism, schizophrenia, seizure disorder, shingles and sleep apnea, tuberculosis, urinary retention, eye surgery, hip replacement bilaterally, and total knee arthroplasty. Never smoker. Never substance abuser, but former drinker. Taking multiple medications as outlined particular to mention bupropion, carvedilol, finasteride, fluphenazine, furosemide, metolazone, olanzapine, paroxetine, and divalproex. Initially, notedly afebrile with mild hypertension with blood pressure 143/99, pulse ox 98%. Initial physical examination was documented as normal neurologically since that time, the patient has been seen by the oncologist for the documentation of the bone lesion. His CTA chest was negative with no evidence of pulmonary embolism. Patchy sclerosis involving L1-4, colonic compression fracture at T12 and L5. Serum protein electrophoresis and immunofixation were ordered with quantitative immunoglobulins and light chain studies. No bone marrow was done. Subsequently, he was followed by the oncologist on 04/28, negative for multiple myeloma with no monoclonal protein. No need for the bone biopsy. He has been seen by the renal physician also for electrolyte imbalance and neuro consultation has been obtained for the ongoing history of seizure disorder. At this stage, he is receiving multiple medications, but I do not see any anti-convulsions on board. Most recent hematology report, WBC 11.6, hemoglobin 11.2, and platelet count of 370. Bone scan on April 23, with numerous foci of joint and disk centered, increased uptake with severe spondylosis, and inflammatory arthritic changes. PHYSICAL EXAMINATION: GENERAL: Today, he is awake, alert, cooperative, morbidly obese. HEENT: Head normocephalic with no cranial bruit. Ear, nose, throat exam normal. NECK: Supple with no cervical bruit. No thyromegaly. No lymphadenopathy. HEART: Regular. LUNGS: With decreased breath sounds. No rhonchi or crepts. ABDOMEN: Soft, distended. Normal bowel sounds. SKIN: Normal. NEUROLOGICAL: He is awake, arousable, follows instruction. Pupils round and regular. Richey of vision could not be reliably checked. Face symmetrical. Tongue midline. Motor examination revealed generally decreased strength. Symmetrical reflexes, but sluggish and plantars downgoing. IMPRESSION: History of the seizure disorder with all the evaluation as up until now has been documented, particularly his imaging studies, such as the head CT scan, on 04/10, was normal. Medications have been reviewed. There is no seizure medication he is taking. I will talk to the physician for further information and discuss accordingly. CHERIE AHUJA M.D. NUTRITION INTERN NUTRITION INTERN D I MT: [place]
--- NOTE | 2020-04-30 13:23 | CONS_ITS ---
DATE OF CONSULTATION: 04/23/[address] Allison Thornton. HISTORY OF PRESENT ILLNESS: A 69-year-old has been admitted to [facility] and transferred to [facility] with multiple complaints particularly the midsternal chest pain of several days duration. In addition to the difficulties in breathing and history of mechanical fall at the retirement with the subsequent complaint in the right wrist pain. Additionally, the patient has ongoing history of low back pain. The patient does have ongoing history of schizophrenia. As per the history and physical, he has ongoing history of multiple medical problems, which include the anemia, anxiety, benign prostatic hypertrophy, depression, right fibular fracture, GERD, glaucoma, hypertension, hypothyroidism, pneumonia, seizure, shingles, sleep apnea, tuberculosis, urinary retention. In addition, he has undergone the eye surgery, hip replacement bilaterally, total knee arthroplasty. His past history is consistent with him being not a smoker and former alcohol drinker. He has been taking multiple medications. PHYSICAL EXAMINATION: VITAL SIGNS: Evaluation up until now revealed him to be afebrile, pulse 64, respirations 18, blood pressure 143/99. GENERAL: Physical examination was normal in no obvious acute distress. HEENT: Head normocephalic with no cranial bruit. Ear, nose, throat examination normal. NECK: Supple with no meningeal signs. No cervical bruit. No lymphadenopathy. HEART: Regular with no murmur. LUNGS: Clear with no rhonchi or crepitations. ABDOMEN: Soft with no organomegaly. NEUROLOGICAL: He is awake, alert, oriented. Speech not dysphasic, not dysarthric. Pupils round, regular. Richey of vision full. Extraocular movements full. Face symmetrical. Tongue midline. Motor examination revealed him to have no drift of one side or the side. Tone normal. Reflexes sluggish. Plantars downgoing. LABORATORY DATA: Evaluation up until now revealed him to have abnormal CBC with WBC 14.3. Basic metabolic panel was also at the time of admission abnormal with hyponatremia, hypokalemia, hypochloremia, BUN 35, creatinine 1.10, glucose 124, calcium 11.1, troponin less than 0.012. Hepatic enzymes with ALT of 114, alkaline phos 148. UA negative. The patient up until now has had the head CT scan on April 29, which revealed normal aging brain. No evidence of subdural bleed. Doppler study of the carotid documented no significant abnormalities. He had a bone scan also, which documented numerous foci of joint and disk, uptake throughout the axial and appendicular skeleton, consistent with severe spondylosis and right sternoclavicular and bilateral sacroiliac joint arthritic changes. Venous Doppler study normal in the lower extremity. The patient during this hospitalization has been seen by the oncologists also because the abnormal CT scan of the lumbar spine. As per the review of Dr. Reardon's notes, he ordered the electrophoretic studies of the serum. The patient has been seen by residency coordinator also. At this stage, his exam is essentially unchanged. I will review all his studies and further recommendations made accordingly. CHERIE AHUJA M.D. JET HANDLER JET HANDLER D I MT: Tamiko
[2020-04-30 15:41] LABS: Chloride Rand Ur 76 mmol/L (32-290); Chloride/Creatinine Rand Ur 224 (23-275); Creatinine Random Urine 34 mg/dL (20-320)
--- NOTE | 2020-04-30 16:36 | PM.PNNEP ---
Progress Note: A&P Assessment and Plan (1) Hypokalemia: Code(s): E87.6 - Hypokalemia Status: Acute Assessment and Plan: Hypokalemia. Cortisol pending. Aldosterone pending. Potassium is low. Probably due to diuretics. now on spironolactone. Will cut the Lasix down again. Try to minimize diuretics to prevent potassium from dropping again. Give potassium x1 now. Magnesium was low now. (2) Chest pain: Code(s): R07.9 - Chest pain, unspecified Status: Acute Assessment and Plan: No complaints today (3) Chronic paranoid schizophrenia: Code(s): F20.0 - Paranoid schizophrenia Status: Acute (4) Bone lesion: Code(s): M89.9 - Disorder of bone, unspecified Status: Acute Assessment and Plan: Evaluation per hospitalist (5) Anemia: Code(s): D64.9 - Anemia, unspecified Status: Chronic Assessment and Plan: . Hemoglobin is mildly low. Check iron studies. Additional Plan Subjective Date/time seen: 04/30/20 16:36 Interval history: Patient is even more interactive today. He denies shortness of breath. Review of Systems Cardiovascular: Cardiovascular: Reports no additional cardiovascular complaints Respiratory: Respiratory: Reports no additional respiratory complaints Gastrointestinal: Gastrointestinal: Reports no additional gastrointestinal complaints Genitourinary: Genitourinary: Reports no additional male genitourinary complaints Exam Narrative: Exam Narrative: WDWN in NAD skin no rash head ncat lungs clear cor reg no rub abd BS+ nontender and soft ext no edema. Objective Data Vital Signs Vital Signs: Vital Signs - 24 hr 04/29/20 19:46 04/29/20 20:32 04/29/20 23:13 Temperature 36.6 C Pulse Rate 75 62 75 Respiratory Rate 14 Blood Pressure 110/59 L Pulse Oximetry 96 94 04/30/20 04:26 04/30/20 09:09 04/30/20 09:10 Temperature 36.3 C L Pulse Rate 65 62 60 Respiratory Rate 14 14 Blood Pressure 121/77 Pulse Oximetry 100 100 04/30/20 15:32 Temperature 36.8 C Pulse Rate 68 Respiratory Rate 14 Blood Pressure 120/68 Pulse Oximetry 98 Intake/Output Intake/Output: Intake & Output 04/27/20 04/28/20 04/29/20 04/30/20 23:59 23:59 23:59 23:59 Intake Total 2530 740 1290 1410 Output Total 300 450 Balance 2230 808 835 1219 Meds/Results Medications: Active Medications Generic Name Dose Route Start Last Admin Trade Name Jamila PRN Reason Stop Dose Admin Bupropion HCl 200 mg 04/22/20 21:00 04/30/20 09:10 Wellbutrin-Sr (12hr) PO 200 mg Q12HR BOSSMAN Administration Carvedilol 12.5 mg 04/22/20 21:00 04/30/20 09:09 Coreg PO 12.5 mg Q12HR BOSSMAN Administration Divalproex Sodium 750 mg 04/26/20 11:15 04/30/20 09:08 Depakote Ec Tab PO 750 mg Q12HR BOSSMAN Administration Famotidine 20 mg 04/22/20 21:00 04/30/20 09:09 Pepcid Iv IV PUSH 20 mg Q12HR BOSSMAN Administration Finasteride 5 mg 04/23/20 09:00 04/30/20 09:08 Proscar PO 5 mg DAILY BOSSMAN Administration Fluphenazine HCl 10 mg 04/22/20 17:00 04/30/20 13:15 Fluphenazine Hcl PO 05/23/20 17:01 10 mg TID BOSSMAN Administration Furosemide 20 mg 04/30/20 09:00 04/30/20 09:06 Lasix Tablet PO 20 mg DAILY BOSSMAN Administration Levothyroxine Sodium 100 mcg 04/23/20 06:30 04/30/20 05:30 Synthroid PO 05/23/20 06:31 100 mcg DAILY@0630 BOSSMAN Administration Levothyroxine Sodium 75 mcg 04/23/20 06:30 04/30/20 05:30 Synthroid PO 75 mcg DAILY@0630 BOSSMAN Administration Lidocaine 2 patch 04/24/20 09:00 04/30/20 09:07 Lidoderm TRANSDERM 2 patch DAILY BOSSMAN Administration Magnesium Oxide 400 mg 04/23/20 09:00 04/30/20 09:07 Mag-Ox PO 400 mg DAILY BOSSMAN Administration Multivitamins Therapeutic 1 tablet 04/23/20 09:00 04/30/20 09:09 Multivitamins Therapeutic(*Bkc PO 05/23/20 09:01 1 tablet DAILY BOSSMAN Administration Olanzapi
--- NOTE | 2020-04-30 16:58 | PM.IMPN ---
Progress Note: A&P Assessment and Plan (1) Chest pain: Code(s): R07.9 - Chest pain, unspecified Status: Acute Assessment and Plan: 04/30/20 16:58 Patient is 69-year-old male resident of nursing with history of schizophrenia was sent to emergency department with a complaint chest pain which had been persisting few days prior to coming to emergency depart, patient 3 sets of cardiac enzymes are negative myocardial infarction was ruled out to further evaluate patient's fall and back pain patient had a CTA of the chest there was no pulmonary emboli however patient had a spinal sclerotic lesion, bone scan was done which did not show any malignancy however did show some arthritis, to further evaluate patient was seen by amusement park worker oncologist is suspect patient may have multiple myeloma as he has calcium is elevated further workup is in progress, patient is a very poor historian with history of schizophrenia unable to provide detailed history review of symptom. on 04/24 Patient complained of low back pain denied any fever or chills, patient was started on Lidoderm patches for the low back pain, today is patient is more somnolent, patient potassium and magnesium are persisting low, discussed with email campaign manager patient is on 2 diuretics this adonis possibly contribute to low potassium and magnesium, much detail is available is why the patient on 2 diuretics, as patient is unable to provide detailed history review of symptom will do the cardiac echo to further evaluate, patient is morbidly obese difficult to assess volume overload however chest x-ray does not show pulmonary congestion patient seen by email campaign manager and further recommendation to follow, discussed with patient and daughter patient had been taking lasix for longtime and his legs were swallen NH added metozone. patient is seen email campaign manager and suspect hypokalemia hypomagnesium most likely secondary to diuresis with Lasix and metolazone, on 04/28 email campaign manager added spironolactone to spare potassium stopped metolazone, family is quite concerned as patient was able to interact and ambulate however since admitted this time patient is quite lathergic and not as interactive, to further evaluate we did ct of brain which did not show any acute finding, cardiact was essentially normal, TSH is nomal, patient has been taking depokote 750mg BID and psych medication including zyprexa 10mg BID which he is been taking for sometime, most likely patient is lathergic due to dual dirutics with metalozane and laxis which had depeleted potassium and magneusim, which have been replaced now trending close to normal, today patient little more interactive, he was able to sit on the side of the bed and is able to grab things to help himself with feeding, did add salt 500mg tab BID will continue to monitor patient, provide PT/OT. (2) Abnormal CT of spine: Code(s): R93.7 - Abnormal findings on diagnostic imaging of other parts of musculoskeletal system Status: Acute Assessment and Plan: Plan is above seen by amusement park worker oncologist suspect multiple myeloma further workup patient pending (3) Seizures: Code(s): R56.9 - Unspecified convulsions Status: Acute Assessment and Plan: Will continue home regimen and monitor (4) Chronic paranoid schizophrenia: Code(s): F20.0 - Paranoid schizophrenia Status: Acute Assessment and Plan: Clinically stable continue home regimen Subjective Date/time seen: 04/30/20 16:58 Patient is 69-year-old male resident of nursing with history of schizophrenia was sent to emergency department with a complaint chest pain which had been persisting few days prior to coming to emergency depart, patient 3 sets of cardiac enzymes are negative myocardial infarction was ruled out to further evaluate patient's fall and back pain patient had a CTA of the chest there was no pulmonary emboli however patient had a spinal sclerotic lesion, bone scan was done
[2020-04-30 18:28] LABS: Iron 40 ug/dL (49-181)
[2020-04-30 18:37] LABS: Percent Iron Saturation 17 % (20-50)
[2020-05-01 04:36] VITALS: BP 108/71; PULSE 78; RESP 14; TEMP 36.4; O2SAT 95
[2020-05-01] MEDS: LEVOTHYROXINE SODIUM 75 MCG TABLET PO (05:49)
[2020-05-01] MEDS: LEVOTHYROXINE SODIUM 100 MCG TABLET PO (05:49)
[2020-05-01 06:26] LABS: Albumin Level 3.3 g/dL (3.5-5.1); Blood Urea Nitrogen 25 mg/dL (9-20); Calcium 9.6 mg/dL (8.4-10.2); Carbon Dioxide 29 mmol/L (22-30); Chloride 93 mmol/L (98-107); Estimated CRCL calculation 96 ml/min; Estimated Glomerular Filt Rate > 60; Glucose 91 mg/dL (75-110); Phosphorus 3.4 mg/dL (2.5-4.5); Sodium 131 mmol/L (137-145)
[2020-05-01 06:29] LABS: Magnesium 1.8 mg/dL (1.6-2.3)
--- NOTE | 2020-05-01 07:58 | PM.PNNEP ---
Progress Note: A&P Assessment and Plan (1) Hypokalemia: Code(s): E87.6 - Hypokalemia Status: Acute Assessment and Plan: Hypokalemia. Cortisol 24. TSH okay. ldosterone pending. Potassium is low. Will stop Lasix. Continue spironolactone for now. (2) Chest pain: Code(s): R07.9 - Chest pain, unspecified Status: Acute Assessment and Plan: No complaints today (3) Chronic paranoid schizophrenia: Code(s): F20.0 - Paranoid schizophrenia Status: Acute (4) Bone lesion: Code(s): M89.9 - Disorder of bone, unspecified Status: Acute Assessment and Plan: Evaluation per hospitalist (5) Anemia: Code(s): D64.9 - Anemia, unspecified Status: Chronic Assessment and Plan: . Hemoglobin is mildly low. T sat 17. Will give iron. Additional Plan Subjective Date/time seen: 05/01/20 07:58 Interval history: Awake. Somewhat terse. He looks comfortable. He denies shortness of breath. Review of Systems Cardiovascular: Cardiovascular: Reports no additional cardiovascular complaints Respiratory: Respiratory: Reports no additional respiratory complaints Gastrointestinal: Gastrointestinal: Reports no additional gastrointestinal complaints Genitourinary: Genitourinary: Reports no additional male genitourinary complaints Exam Narrative: Exam Narrative: WDWN in NAD skin no rash head ncat lungs clear to auscultation cor reg no rub abd BS+ nontender and soft ext no edema. Objective Data Vital Signs Vital Signs: Vital Signs - 24 hr 04/30/20 09:09 04/30/20 09:10 04/30/20 15:32 Temperature 36.8 C Pulse Rate 62 60 68 Respiratory Rate 14 14 Blood Pressure 120/68 Pulse Oximetry 100 98 04/30/20 17:33 04/30/20 19:55 04/30/20 20:43 Temperature 36.6 C 36.3 C L Pulse Rate 88 69 70 Respiratory Rate 16 16 Blood Pressure 158/68 H 106/75 Pulse Oximetry 97 97 04/30/20 22:45 05/01/20 04:36 Temperature 36.4 C Pulse Rate 70 78 Respiratory Rate 14 Blood Pressure 108/71 Pulse Oximetry 94 95 Intake/Output Intake/Output: Intake & Output 04/28/20 04/29/20 04/30/2020 23:59 23:59 23:59 23:59 Intake Total 740 1290 2730 500 Output Total 450 900 Balance 599 679 2206 500 Meds/Results Medications: Active Medications Generic Name Dose Route Start Last Admin Trade Name Jamila PRN Reason Stop Dose Admin Bupropion HCl 200 mg 04/22/20 21:00 04/30/20 20:42 Wellbutrin-Sr (12hr) PO 200 mg Q12HR BOSSMAN Administration Carvedilol 12.5 mg 04/22/20 21:00 04/30/20 20:43 Coreg PO 12.5 mg Q12HR BOSSMAN Administration Divalproex Sodium 750 mg 04/26/20 11:15 04/30/20 20:41 Depakote Ec Tab PO 750 mg Q12HR BOSSMAN Administration Famotidine 20 mg 04/22/20 21:00 04/30/20 20:42 Pepcid Iv IV PUSH 20 mg Q12HR BOSSMAN Administration Finasteride 5 mg 04/23/20 09:00 04/30/20 09:08 Proscar PO 5 mg DAILY BOSSMAN Administration Fluphenazine HCl 10 mg 04/22/20 17:00 04/30/20 17:17 Fluphenazine Hcl PO 05/23/20 17:01 10 mg TID BOSSMAN Administration Furosemide 20 mg 04/30/20 09:00 04/30/20 09:06 Lasix Tablet PO 20 mg DAILY BOSSMAN Administration Levothyroxine Sodium 100 mcg 04/23/20 06:30 05/01/20 05:49 Synthroid PO 05/23/20 06:31 100 mcg DAILY@0630 BOSSMAN Administration Levothyroxine Sodium 75 mcg 04/23/20 06:30 05/01/20 05:49 Synthroid PO 75 mcg DAILY@0630 BOSSMAN Administration Lidocaine 2 patch 04/24/20 09:00 04/30/20 09:07 Lidoderm TRANSDERM 2 patch DAILY BOSSMAN Administration Magnesium Oxide 400 mg 04/23/20 09:00 04/30/20 09:07 Mag-Ox PO 400 mg DAILY BOSSMAN Administration Multivitamins Therapeutic 1 tablet 04/23/20 09:00 04/30/20 09:09 Multivitamins Therapeutic(*Bkc PO 05/23/20 09:01 1 tablet DAILY BOSSMAN Administration Olanzapine 10 mg 04/22/20 21:00 04/30/20 20:42 Zyprexa PO 10 mg Q12HR
[2020-05-01] MEDS: FAMOTIDINE 20 MG/2 ML VIAL IV PUSH ×2 (09:24→20:57)
[2020-05-01] MEDS: POTASSIUM CHLORIDE 20 MEQ TABLET.ER PO ×2 (09:24→16:56)
[2020-05-01] MEDS: buPROPion HCL SR (12HR) 100 MG TABCR 200 MG PO ×2 (09:24→20:56)
[2020-05-01] MEDS: TAMSULOSIN HCL 0.4 MG CAPSULE 0.8 MG PO (09:24)
[2020-05-01] MEDS: SPIRONOLACTONE 25 MG TABLET PO (09:24)
[2020-05-01] MEDS: VITAMIN B COMPLEX CAPSULE 1 CAP PO (09:24)
[2020-05-01] MEDS: POLYSACCHARIDE IRON COMPLEX 150 MG CAPSULE PO (09:24)
[2020-05-01] MEDS: SENNOSIDES 8.6 MG TABLET PO ×2 (09:25→20:57)
[2020-05-01] MEDS: FINASTERIDE 5 MG TABLET PO (09:25)
[2020-05-01] MEDS: DIVALPROEX SODIUM 250 MG TABEC 750 MG PO ×2 (09:25→20:56)
[2020-05-01] MEDS: MAGNESIUM OXIDE 400 MG TABLET PO (09:25)
[2020-05-01] MEDS: PAROXETINE 20 MG TABLET 40 MG PO (09:25)
[2020-05-01] MEDS: MULTIVITAMINS THERAPEUTIC TAB (*BKC) 1 TABLET PO (09:25)
[2020-05-01] MEDS: FERROUS SULFATE 324 MG TABLET PO ×2 (09:25→16:56)
[2020-05-01] MEDS: SODIUM CHLORIDE 500 MG TABLET PO ×2 (09:25→16:56)
[2020-05-01 09:26] VITALS: PULSE 78
[2020-05-01] MEDS: carvediloL 12.5 MG TABLET PO ×2 (09:26→20:56)
[2020-05-01] MEDS: LIDOCAINE 5% PATCH 2 PATCH TRANSDERM (09:27)
[2020-05-01 15:39] VITALS: BP 127/66
--- NOTE | 2020-05-01 15:42 | PM.IMPN ---
Progress Note: A&P Assessment and Plan (1) Chest pain: Code(s): R07.9 - Chest pain, unspecified Status: Acute Assessment and Plan: 05/01/20 15:42 Patient is 69-year-old male resident of nursing with history of schizophrenia was sent to emergency department with a complaint chest pain which had been persisting few days prior to coming to emergency depart, patient 3 sets of cardiac enzymes are negative myocardial infarction was ruled out to further evaluate patient's fall and back pain patient had a CTA of the chest there was no pulmonary emboli however patient had a spinal sclerotic lesion, bone scan was done which did not show any malignancy however did show some arthritis, to further evaluate patient was seen by aviation safety inspector oncologist is suspect patient may have multiple myeloma as he has calcium is elevated further workup is in progress, patient is a very poor historian with history of schizophrenia unable to provide detailed history review of symptom. on 04/24 Patient complained of low back pain denied any fever or chills, patient was started on Lidoderm patches for the low back pain, today is patient is more somnolent, patient potassium and magnesium are persisting low, discussed with ct technologist patient is on 2 diuretics this adonis possibly contribute to low potassium and magnesium, much detail is available is why the patient on 2 diuretics, as patient is unable to provide detailed history review of symptom will do the cardiac echo to further evaluate, patient is morbidly obese difficult to assess volume overload however chest x-ray does not show pulmonary congestion patient seen by ct technologist and further recommendation to follow, discussed with patient and daughter patient had been taking lasix for longtime and his legs were swallen NH added metozone. patient is seen ct technologist and suspect hypokalemia hypomagnesium most likely secondary to diuresis with Lasix and metolazone, on 04/28 ct technologist added spironolactone to spare potassium stopped metolazone, family is quite concerned as patient was able to interact and ambulate however since admitted this time patient is quite lathergic and not as interactive, to further evaluate we did ct of brain which did not show any acute finding, cardiact was essentially normal, TSH is nomal, patient has been taking depokote 750mg BID and psych medication including zyprexa 10mg BID which he is been taking for sometime, most likely patient is lathergic due to dual dirutics with metalozane and laxis which had depeleted potassium and magneusim, which have been replaced now trending close to normal, every day patient little more interactive, he was able to sit on the side of the bed and is able to grab things to help himself with feeding, did add salt 500mg tab BID will continue to monitor patient, provide PT/OT. Patient clinically symptoms are improving may discharge him back to home tomorrow (2) Abnormal CT of spine: Code(s): R93.7 - Abnormal findings on diagnostic imaging of other parts of musculoskeletal system Status: Acute Assessment and Plan: Plan is above seen by aviation safety inspector oncologist suspect multiple myeloma further workup patient pending (3) Seizures: Code(s): R56.9 - Unspecified convulsions Status: Acute Assessment and Plan: Will continue home regimen and monitor (4) Chronic paranoid schizophrenia: Code(s): F20.0 - Paranoid schizophrenia Status: Acute Assessment and Plan: Clinically stable continue home regimen Subjective Date/time seen: 05/01/20 15:42 Patient is 69-year-old male resident of nursing with history of schizophrenia was sent to emergency department with a complaint chest pain which had been persisting few days prior to coming to emergency depart, patient 3 sets of cardiac enzymes are negative myocardial infarction was ruled out to further evaluate patient's fall and back pain patient had a CTA of the chest there wa
[2020-05-01 16:10] VITALS: BP 125/68
[2020-05-01 20:56] VITALS: PULSE 74
[2020-05-01 22:17] VITALS: BP 114/60; PULSE 64; RESP 14; TEMP 36.6; O2SAT 99
[2020-05-02 06:20] VITALS: BP 108/75; PULSE 72; RESP 16; TEMP 36.6; O2SAT 97
[2020-05-02] MEDS: LEVOTHYROXINE SODIUM 100 MCG TABLET PO (06:22)
[2020-05-02] MEDS: LEVOTHYROXINE SODIUM 75 MCG TABLET PO (06:22)
[2020-05-02 06:36] LABS: Albumin Level 3.3 g/dL (3.5-5.1); Blood Urea Nitrogen 24 mg/dL (9-20); Calcium 9.7 mg/dL (8.4-10.2); Carbon Dioxide 32 mmol/L (22-30); Chloride 94 mmol/L (98-107); Estimated CRCL calculation 109 ml/min; Estimated Glomerular Filt Rate > 60; Glucose 94 mg/dL (75-110); Phosphorus 3.3 mg/dL (2.5-4.5); Potassium 3.6 mmol/L (3.4-5.0); Sodium 133 mmol/L (137-145)
[2020-05-02] MEDS: POLYSACCHARIDE IRON COMPLEX 150 MG CAPSULE PO (08:50)
[2020-05-02] MEDS: TAMSULOSIN HCL 0.4 MG CAPSULE 0.8 MG PO (08:50)
[2020-05-02] MEDS: FINASTERIDE 5 MG TABLET PO (08:50)
[2020-05-02] MEDS: PAROXETINE 20 MG TABLET 40 MG PO (08:51)
[2020-05-02] MEDS: VITAMIN B COMPLEX CAPSULE 1 CAP PO (08:51)
[2020-05-02] MEDS: SENNOSIDES 8.6 MG TABLET PO ×2 (08:51→20:25)
[2020-05-02] MEDS: SODIUM CHLORIDE 500 MG TABLET PO ×2 (08:51→18:10)
[2020-05-02] MEDS: FERROUS SULFATE 324 MG TABLET PO ×2 (08:51→18:09)
[2020-05-02] MEDS: SPIRONOLACTONE 25 MG TABLET PO (08:51)
[2020-05-02] MEDS: DIVALPROEX SODIUM 250 MG TABEC 750 MG PO ×2 (08:51→20:25)
[2020-05-02] MEDS: MULTIVITAMINS THERAPEUTIC TAB (*BKC) 1 TABLET PO (08:51)
[2020-05-02] MEDS: FAMOTIDINE 20 MG/2 ML VIAL IV PUSH ×2 (08:52→20:24)
[2020-05-02] MEDS: buPROPion HCL SR (12HR) 100 MG TABCR 200 MG PO ×2 (08:52→20:25)
[2020-05-02] MEDS: MAGNESIUM OXIDE 400 MG TABLET PO (08:52)
[2020-05-02] MEDS: POTASSIUM CHLORIDE 20 MEQ TABLET.ER PO ×2 (08:52→18:09)
[2020-05-02] MEDS: LIDOCAINE 5% PATCH 2 PATCH TRANSDERM (08:52)
[2020-05-02 08:53] VITALS: PULSE 73
[2020-05-02] MEDS: carvediloL 12.5 MG TABLET PO ×2 (08:53→20:26)
[2020-05-02 09:43] LABS: Magnesium 1.7 mg/dL (1.6-2.3)
--- NOTE | 2020-05-02 09:44 | PM.PNNEP ---
Progress Note: A&P Assessment and Plan (1) Hypokalemia: Code(s): E87.6 - Hypokalemia Status: Acute Assessment and Plan: Hypokalemia. Cortisol 24. TSH okay. aldosterone he is high at 34. Renin pending. Potassium is normal today. Continue spironolactone for now. (2) Chest pain: Code(s): R07.9 - Chest pain, unspecified Status: Acute Assessment and Plan: No complaints today (3) Chronic paranoid schizophrenia: Code(s): F20.0 - Paranoid schizophrenia Status: Acute (4) Bone lesion: Code(s): M89.9 - Disorder of bone, unspecified Status: Acute Assessment and Plan: Evaluation per hospitalist (5) Anemia: Code(s): D64.9 - Anemia, unspecified Status: Chronic Assessment and Plan: . Hemoglobin is mildly low. T sat 17. Will give iron. Additional Plan Subjective Date/time seen: 05/02/20 09:44 Interval history: Awake. Patient feels okay. He says he ate some breakfast. He looks comfortable. He denies shortness of breath. Review of Systems Cardiovascular: Cardiovascular: Reports no additional cardiovascular complaints Respiratory: Respiratory: Reports no additional respiratory complaints Gastrointestinal: Gastrointestinal: Reports no additional gastrointestinal complaints Genitourinary: Genitourinary: Reports no additional male genitourinary complaints Exam Narrative: Exam Narrative: WDWN in NAD skin no rash or subcu nodules head ncat lungs clear cor reg no rub abd BS+ nontender and soft ext no edema. Objective Data Vital Signs Vital Signs: Vital Signs - 24 hr 05/01/20 15:39 05/01/20 16:10 05/01/20 20:56 Temperature Pulse Rate 74 Respiratory Rate Blood Pressure 127/66 125/68 Pulse Oximetry 05/01/20 22:17 05/02/20 06:20 05/02/20 08:53 Temperature 36.6 C 36.6 C Pulse Rate 64 72 73 Respiratory Rate 14 16 Blood Pressure 114/60 108/75 Pulse Oximetry 99 97 Intake/Output Intake/Output: Intake & Output 04/29/20 04/30/20 05/01/20 05/02/20 23:59 23:59 23:59 23:59 Intake Total 1290 2730 2320 540 Output Total 450 900 400 Balance 840 1830 1920 540 Meds/Results Medications: Active Medications Generic Name Dose Route Start Last Admin Trade Name Jamila PRN Reason Stop Dose Admin Bupropion HCl 200 mg 04/22/20 21:00 05/02/20 08:52 Wellbutrin-Sr (12hr) PO 200 mg Q12HR BOSSMAN Administration Carvedilol 12.5 mg 04/22/20 21:00 05/02/20 08:53 Coreg PO 12.5 mg Q12HR BOSSMAN Administration Divalproex Sodium 750 mg 04/26/20 11:15 05/02/20 08:51 Depakote Ec Tab PO 750 mg Q12HR BOSSMAN Administration Famotidine 20 mg 04/22/20 21:00 05/02/20 08:52 Pepcid Iv IV PUSH 20 mg Q12HR BOSSMAN Administration Ferrous Sulfate 324 mg 05/01/20 08:00 05/02/20 08:51 Ferrous Sulfate PO 324 mg BIDWM BOSSMAN Administration Finasteride 5 mg 04/23/20 09:00 05/02/20 08:50 Proscar PO 5 mg DAILY BOSSMAN Administration Fluphenazine HCl 10 mg 04/22/20 17:00 05/02/20 08:52 Fluphenazine Hcl PO 05/23/20 17:01 10 mg TID BOSSMAN Administration Levothyroxine Sodium 100 mcg 04/23/20 06:30 05/02/20 06:22 Synthroid PO 05/23/20 06:31 100 mcg DAILY@0630 BOSSMAN Administration Levothyroxine Sodium 75 mcg 04/23/20 06:30 05/02/20 06:22 Synthroid PO 75 mcg DAILY@0630 BOSSMAN Administration Lidocaine 2 patch 04/24/20 09:00 05/02/20 08:52 Lidoderm TRANSDERM 2 patch DAILY BOSSMAN Administration Magnesium Oxide 400 mg 04/23/20 09:00 05/02/20 08:52 Mag-Ox PO 400 mg DAILY BOSSMAN Administration Multivitamins Therapeutic 1 tablet 04/23/20 09:00 05/02/20 08:51 Multivitamins Therapeutic(*Bkc PO 05/23/20 09:01 1 tablet DAILY BOSSMAN Administration Olanzapine 10 mg 04/22/20 21:00 05/02/20 08:51 Zyprexa PO 10 mg Q12HR BOSSMAN Administration Ondansetron HCl 4 mg 04/22/20 15:54 Zofran Inj IV PUSH
--- NOTE | 2020-05-02 11:44 | PCNFU ---
Nutrition Follow-Up Complete: Inadequate Oral Intake as related to Dehydration/CP as evidenced by poor po intake reported Goal: Adequate Intake of at least 50% of meals/supplements Progressing towards goal. We will continue current goal. Pt current nutrition is Easy to Chew, Level 7. Nutrition recommendation: Agree Last recorded weight is 118.7 kg. Bowel Motility:+BM reported 04/30 Labs Reviewed:BUN 24,Na 133,Alb 3.3 Meds Noted:MVI,Mag Ox Additional Notes: Patient is a feeder. Bkfast today 40% of meal-biscuit/gravy,peaches and 2 apple juices. Ensure Enlive remains on trays providing an additional 350 kcals and 20 gms protein. Montioring: RD will monitor every 3 days.
[2020-05-02 12:50] LABS: PRA 24.47 ng/mL/h (0.25-5.82)
[2020-05-02 13:28] LABS: SARS-CoV-2 RNA PCR Negative
[2020-05-02 14:20] VITALS: BMI 10.0
[2020-05-02 15:00] VITALS: BP 105/63; PULSE 77; RESP 20; TEMP 36.1; O2SAT 96
--- NOTE | 2020-05-02 15:47 | PM.IMPN ---
Progress Note: A&P Assessment and Plan (1) Chest pain: Code(s): R07.9 - Chest pain, unspecified Status: Acute Assessment and Plan: 05/02/20 15:47 Patient is 69-year-old male resident of nursing with history of schizophrenia was sent to emergency department with a complaint chest pain which had been persisting few days prior to coming to emergency depart, patient 3 sets of cardiac enzymes are negative myocardial infarction was ruled out to further evaluate patient's fall and back pain patient had a CTA of the chest there was no pulmonary emboli however patient had a spinal sclerotic lesion, bone scan was done which did not show any malignancy however did show some arthritis, to further evaluate patient was seen by logging operations inspector oncologist is suspect patient may have multiple myeloma as he has calcium is elevated further workup is in progress, patient is a very poor historian with history of schizophrenia unable to provide detailed history review of symptom. on 04/24 Patient complained of low back pain denied any fever or chills, patient was started on Lidoderm patches for the low back pain, today is patient is more somnolent, patient potassium and magnesium are persisting low, discussed with kiln repairer patient is on 2 diuretics this adonis possibly contribute to low potassium and magnesium, much detail is available is why the patient on 2 diuretics, as patient is unable to provide detailed history review of symptom will do the cardiac echo to further evaluate, patient is morbidly obese difficult to assess volume overload however chest x-ray does not show pulmonary congestion patient seen by kiln repairer and further recommendation to follow, discussed with patient and daughter patient had been taking lasix for longtime and his legs were swallen NH added metozone. patient is seen kiln repairer and suspect hypokalemia hypomagnesium most likely secondary to diuresis with Lasix and metolazone, on 04/28 kiln repairer added spironolactone to spare potassium stopped metolazone, family is quite concerned as patient was able to interact and ambulate however since admitted this time patient is quite lathergic and not as interactive, to further evaluate we did ct of brain which did not show any acute finding, cardiact was essentially normal, TSH is nomal, patient has been taking depokote 750mg BID and psych medication including zyprexa 10mg BID which he is been taking for sometime, most likely patient is lathergic due to dual dirutics with metalozane and laxis which had depeleted potassium and magneusim, which have been replaced now trending close to normal, every day patient little more interactive, he was able to sit on the side of the bed and is able to grab things to help himself with feeding, did add salt 500mg tab BID will continue to monitor patient, provide PT/OT. Discussed with Dr. Singh have stopped metalozone and Lasix will continue spironolactone patient potassium and magnesium is a close to normal Patient clinically symptoms are improving may discharge him back to home soon. (2) Abnormal CT of spine: Code(s): R93.7 - Abnormal findings on diagnostic imaging of other parts of musculoskeletal system Status: Acute Assessment and Plan: Plan is above seen by logging operations inspector oncologist suspect multiple myeloma further workup patient pending (3) Seizures: Code(s): R56.9 - Unspecified convulsions Status: Acute Assessment and Plan: Will continue home regimen and monitor (4) Chronic paranoid schizophrenia: Code(s): F20.0 - Paranoid schizophrenia Status: Acute Assessment and Plan: Clinically stable continue home regimen Subjective Date/time seen: 05/02/20 15:47 Patient is 69-year-old male resident of nursing with history of schizophrenia was sent to emergency department with a complaint chest pain which had been persisting few days prior to coming to emergency depart, patient 3 sets of cardiac enzy
[2020-05-02 20:19] VITALS: BP 110/66; PULSE 75; RESP 19; TEMP 36.1; O2SAT 95
[2020-05-02 20:26] VITALS: PULSE 75
[2020-05-03] VITALS (8 sets, daily range): BP systolic 107–134; BP diastolic 59–79; PULSE 63–75; RESP 14–18; TEMP 35.9–36.1; O2SAT 95–99
[2020-05-03] MEDS: LEVOTHYROXINE SODIUM 75 MCG TABLET PO (05:57)
[2020-05-03] MEDS: LEVOTHYROXINE SODIUM 100 MCG TABLET PO (05:57)
[2020-05-03 07:03] LABS: Albumin Level 3.2 g/dL (3.5-5.1); Blood Urea Nitrogen 17 mg/dL (9-20); Calcium 9.6 mg/dL (8.4-10.2); Carbon Dioxide 34 mmol/L (22-30); Chloride 96 mmol/L (98-107); Estimated CRCL calculation 109 ml/min; Estimated Glomerular Filt Rate > 60; Glucose 102 mg/dL (75-110); Magnesium 1.8 mg/dL (1.6-2.3); Phosphorus 3.6 mg/dL (2.5-4.5); Potassium 3.8 mmol/L (3.4-5.0); Sodium 135 mmol/L (137-145)
[2020-05-03] MEDS: LIDOCAINE 5% PATCH 2 PATCH TRANSDERM (09:47)
[2020-05-03] MEDS: PAROXETINE 20 MG TABLET 40 MG PO (09:48)
[2020-05-03] MEDS: SENNOSIDES 8.6 MG TABLET PO ×2 (09:48→20:49)
[2020-05-03] MEDS: FAMOTIDINE 20 MG/2 ML VIAL IV PUSH ×2 (09:48→20:48)
[2020-05-03] MEDS: SODIUM CHLORIDE 500 MG TABLET PO (09:48)
[2020-05-03] MEDS: POTASSIUM CHLORIDE 20 MEQ TABLET.ER PO ×2 (09:48→17:50)
[2020-05-03] MEDS: VITAMIN B COMPLEX CAPSULE 1 CAP PO (09:48)
[2020-05-03] MEDS: FINASTERIDE 5 MG TABLET PO (09:48)
[2020-05-03] MEDS: MULTIVITAMINS THERAPEUTIC TAB (*BKC) 1 TABLET PO (09:49)
[2020-05-03] MEDS: carvediloL 12.5 MG TABLET PO ×2 (09:49→20:49)
[2020-05-03] MEDS: FERROUS SULFATE 324 MG TABLET PO ×2 (09:50→17:54)
[2020-05-03] MEDS: SPIRONOLACTONE 25 MG TABLET PO (09:50)
[2020-05-03] MEDS: TAMSULOSIN HCL 0.4 MG CAPSULE 0.8 MG PO (09:50)
[2020-05-03] MEDS: MAGNESIUM OXIDE 400 MG TABLET PO (09:51)
[2020-05-03] MEDS: buPROPion HCL SR (12HR) 100 MG TABCR 200 MG PO ×2 (09:51→20:49)
[2020-05-03] MEDS: DIVALPROEX SODIUM 250 MG TABEC 750 MG PO ×2 (09:51→20:48)
--- NOTE | 2020-05-03 10:52 | PM.PNNEP ---
Progress Note: A&P Assessment and Plan (1) Hypokalemia: Code(s): E87.6 - Hypokalemia Status: Acute Assessment and Plan: Hypokalemia. Cortisol 24. TSH okay. aldosterone he is high at 34. Ratio is 1.8 so run in value is around 19 which is reasonable for someone on a low-sodium diet as he is. Most likely aldosterone and renin are where they are because of his with dynamic status. I do not think that the RAAS system is causing his sodium to be low. Potassium is normal today. Magnesium is normal now. Continue spironolactone for now. Long discussion with the daughter yesterday. We discussed the nature of the low potassium which is probably due to diuretics. We also discussed his magnesium levels. We also discussed the findings in the CT regarding his bones. Dr. Reardon is heading this aspect of his care. Long discussion with the daughter. I also discussed with Dr. Thornton. 30 minutes were spent in discussions with daughter, patient, and hospitalist. He looks euvolemic. (2) Chest pain: Code(s): R07.9 - Chest pain, unspecified Status: Acute Assessment and Plan: No complaints today (3) Chronic paranoid schizophrenia: Code(s): F20.0 - Paranoid schizophrenia Status: Acute (4) Bone lesion: Code(s): M89.9 - Disorder of bone, unspecified Status: Acute Assessment and Plan: Evaluation per hospitalist CT shows lesions L1-2 L4 Bone scan does not show metastatic disease. 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 [place] lambda is normal. Dr. Reardon is on the case. (5) Anemia: Code(s): D64.9 - Anemia, unspecified Status: Chronic Assessment and Plan: . Hemoglobin is mildly low. T sat 17. Will give iron. Additional Plan Subjective Date/time seen: 05/03/20 10:52 Interval history: Awake. Patient feels okay. No complaints. Resting in bed comfortably. Review of Systems Cardiovascular: Cardiovascular: Reports no additional cardiovascular complaints Respiratory: Respiratory: Reports no additional respiratory complaints Gastrointestinal: Gastrointestinal: Reports no additional gastrointestinal complaints Genitourinary: Genitourinary: Reports no additional male genitourinary complaints Exam Narrative: Exam Narrative: WDWN in NAD skin no rash or subcu nodules head ncat lungs clear bilaterally cor reg no rub or gallop abd BS+ nontender and soft ext no edema. Objective Data Vital Signs Vital Signs: Vital Signs - 24 hr 05/02/20 15:00 05/02/20 20:19 05/02/20 20:26 Temperature 36.1 C L 36.1 C L Pulse Rate 77 75 75 Respiratory Rate 20 19 Blood Pressure 105/63 110/66 Pulse Oximetry 96 95 05/03/20 00:53 05/03/20 06:41 05/03/20 09:49 Temperature 36.1 C L Pulse Rate 72 68 Respiratory Rate 15 Blood Pressure 107/59 L Pulse Oximetry 96 98 Intake/Output Intake/Output: Intake & Output 04/30/20 05/01/20 05/02/20 05/03/20 23:59 23:59 23:59 23:59 Intake Total 2730 2320 1370 520 Output Total 900 400 Balance 1830 1920 1370 520 Meds/Results Medications: Active Medications Generic Name Dose Route Start Last Admin Trade Name Kendellq PRN Reason Stop Dose Admin Bupropion HCl 200 mg 04/22/20 21:00 05/03/20 09:51 Wellbutrin-Sr (12hr) PO 200 mg Q12HR BOSSMAN Administration Carvedilol 12.5 mg 04/22/20 21:00 05/03/20 09:49 Coreg PO 12.5 mg Q12HR BOSSMAN Administration Divalproex Sodium 750 mg 04/26/20 11:15 05/03/20 09:51 Depakote Ec Tab PO 750 mg Q12HR BOSSMAN Administration Famotidine 20 mg 04/22/20 21:00 05/03/20 09:48 Pepcid Iv IV PUSH 20 mg Q12HR BOSSMAN Administration Ferrous Sulfate 324 mg 05/01/20 08:00 05/03/20 09:50 Ferrous Sulfate PO 324 mg BIDWM BOSSMAN Administration Finasteride 5 mg 04/23/20 09:00 05/03/20 09:48 Proscar PO 5 mg DAILY BOSSMAN Administration Fluphenazine HCl
--- NOTE | 2020-05-03 14:25 | PM.IMPN ---
Progress Note: A&P Assessment and Plan (1) Chest pain: Code(s): R07.9 - Chest pain, unspecified Status: Acute Assessment and Plan: 05/03/20 14:25 Patient is 69-year-old male resident of nursing with history of schizophrenia was sent to emergency department with a complaint chest pain which had been persisting few days prior to coming to emergency depart, patient 3 sets of cardiac enzymes are negative myocardial infarction was ruled out to further evaluate patient's fall and back pain patient had a CTA of the chest there was no pulmonary emboli however patient had a spinal sclerotic lesion, bone scan was done which did not show any malignancy however did show some arthritis, to further evaluate patient was seen by special education curriculum specialist oncologist is suspect patient may have multiple myeloma as he has calcium is elevated further workup is in progress, patient is a very poor historian with history of schizophrenia unable to provide detailed history review of symptom. on 04/24 Patient complained of low back pain denied any fever or chills, patient was started on Lidoderm patches for the low back pain, today is patient is more somnolent, patient potassium and magnesium are persisting low, discussed with physics teacher patient is on 2 diuretics this adonis possibly contribute to low potassium and magnesium, much detail is available is why the patient on 2 diuretics, as patient is unable to provide detailed history review of symptom will do the cardiac echo to further evaluate, patient is morbidly obese difficult to assess volume overload however chest x-ray does not show pulmonary congestion patient seen by physics teacher and further recommendation to follow, discussed with patient and daughter patient had been taking lasix for longtime and his legs were swallen NH added metozone. patient is seen physics teacher and suspect hypokalemia hypomagnesium most likely secondary to diuresis with Lasix and metolazone, on 04/28 physics teacher added spironolactone to spare potassium stopped metolazone, family is quite concerned as patient was able to interact and ambulate however since admitted this time patient is quite lathergic and not as interactive, to further evaluate we did ct of brain which did not show any acute finding, cardiact was essentially normal, TSH is nomal, patient has been taking depokote 750mg BID and psych medication including zyprexa 10mg BID which he is been taking for sometime, most likely patient is lathergic due to dual dirutics with metalozane and laxis which had depeleted potassium and magneusim, which have been replaced now trending close to normal, every day patient little more interactive, he was able to sit on the side of the bed and is able to grab things to help himself with feeding, did add salt 500mg tab BID will continue to monitor patient, provide PT/OT his sodium is trending up, will stop salt tablet. Discussed with Dr. Singh have stopped metalozone and Lasix will continue spironolactone patient potassium and magnesium is a close to normal Patient clinically symptoms are improving may discharge him back to home soon. discuss with PT to encourage patient to participate and make him sit in the chair, (2) Abnormal CT of spine: Code(s): R93.7 - Abnormal findings on diagnostic imaging of other parts of musculoskeletal system Status: Acute Assessment and Plan: Plan is above seen by special education curriculum specialist oncologist suspect multiple myeloma further workup patient pending (3) Seizures: Code(s): R56.9 - Unspecified convulsions Status: Acute Assessment and Plan: Will continue home regimen and monitor (4) Chronic paranoid schizophrenia: Code(s): F20.0 - Paranoid schizophrenia Status: Acute Assessment and Plan: Clinically stable continue home regimen Subjective Date/time seen: 05/03/20 14:25 Patient is 69-year-old male resident of nursing with history of schizophrenia was sent to emergency departmen
[2020-05-04 06:34] LABS: Albumin Level 3.2 g/dL (3.5-5.1); Blood Urea Nitrogen 17 mg/dL (9-20); Calcium 9.7 mg/dL (8.4-10.2); Carbon Dioxide 33 mmol/L (22-30); Chloride 96 mmol/L (98-107); Estimated CRCL calculation 126 ml/min; Estimated Glomerular Filt Rate > 60; Glucose 106 mg/dL (75-110); Phosphorus 3.8 mg/dL (2.5-4.5); Potassium 4.1 mmol/L (3.4-5.0); Sodium 136 mmol/L (137-145)
[2020-05-04] MEDS: LEVOTHYROXINE SODIUM 100 MCG TABLET PO (06:35)
[2020-05-04] MEDS: LEVOTHYROXINE SODIUM 75 MCG TABLET PO (06:35)
[2020-05-04 08:00] VITALS: BP 115/73; PULSE 74; RESP 16; TEMP 36.4; O2SAT 97
[2020-05-04] MEDS: LIDOCAINE 5% PATCH 2 PATCH TRANSDERM (09:28)
[2020-05-04] MEDS: FERROUS SULFATE 324 MG TABLET PO ×2 (09:29→17:09)
[2020-05-04] MEDS: MULTIVITAMINS THERAPEUTIC TAB (*BKC) 1 TABLET PO (09:29)
[2020-05-04] MEDS: SPIRONOLACTONE 25 MG TABLET PO (09:30)
[2020-05-04] MEDS: POTASSIUM CHLORIDE 20 MEQ TABLET.ER PO (09:30)
[2020-05-04] MEDS: FINASTERIDE 5 MG TABLET PO (09:31)
[2020-05-04] MEDS: VITAMIN B COMPLEX CAPSULE 1 CAP PO (09:31)
[2020-05-04] MEDS: FAMOTIDINE 20 MG/2 ML VIAL IV PUSH ×2 (09:31→20:48)
[2020-05-04 09:32] VITALS: PULSE 72
[2020-05-04] MEDS: SENNOSIDES 8.6 MG TABLET PO ×2 (09:32→20:49)
[2020-05-04] MEDS: PAROXETINE 20 MG TABLET 40 MG PO (09:32)
[2020-05-04] MEDS: carvediloL 12.5 MG TABLET PO ×2 (09:32→20:48)
[2020-05-04] MEDS: MAGNESIUM OXIDE 400 MG TABLET PO (09:32)
[2020-05-04] MEDS: TAMSULOSIN HCL 0.4 MG CAPSULE 0.8 MG PO (09:33)
[2020-05-04] MEDS: DIVALPROEX SODIUM 250 MG TABEC 750 MG PO ×2 (09:34→20:48)
[2020-05-04] MEDS: buPROPion HCL SR (12HR) 100 MG TABCR 200 MG PO ×2 (09:34→20:48)
[2020-05-04 09:35] VITALS: PULSE 72; RESP 16; O2SAT 97
--- NOTE | 2020-05-04 11:05 | PM.PNNEP ---
Progress Note: A&P Assessment and Plan (1) Hypokalemia: Code(s): E87.6 - Hypokalemia Status: Acute Assessment and Plan: Hypokalemia. Cortisol 24. TSH okay. aldosterone he is high at 34. Ratio is 1.8 so run in value is around 19 which is reasonable for someone on a low-sodium diet as he is. Most likely aldosterone and renin are where they are because of his with dynamic status. I do not think that the RAAS system is causing his sodium to be low. Potassium is normal today. Magnesium is normal now. cut KCL to one a day then eventually stop if serum K is okay. (2) Chest pain: Code(s): R07.9 - Chest pain, unspecified Status: Acute Assessment and Plan: No complaints today (3) Chronic paranoid schizophrenia: Code(s): F20.0 - Paranoid schizophrenia Status: Acute (4) Bone lesion: Code(s): M89.9 - Disorder of bone, unspecified Status: Acute Assessment and Plan: Evaluation per hospitalist CT shows lesions L1-2 L4 Bone scan does not show metastatic disease. 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 [place] lambda is normal. Dr. Reardon is on the case. (5) Anemia: Code(s): D64.9 - Anemia, unspecified Status: Chronic Assessment and Plan: . Hemoglobin is mildly low. T sat 17. on oral iron Additional Plan Subjective Date/time seen: 05/04/20 11:05 Interval history: Awake. Patient feels okay. No sob Review of Systems Cardiovascular: Cardiovascular: Reports no additional cardiovascular complaints Respiratory: Respiratory: Reports no additional respiratory complaints Gastrointestinal: Gastrointestinal: Reports no additional gastrointestinal complaints Genitourinary: Genitourinary: Reports no additional male genitourinary complaints Exam Narrative: Exam Narrative: WDWN in NAD skin no rash or subcu nodules head ncat lungs clear lungs cor reg no rub or gallop abd BS+ nontender and soft ext no edema or cyanosis Objective Data Vital Signs Vital Signs: Vital Signs - 24 hr 05/03/20 14:00 05/03/20 20:49 05/03/20 21:45 Temperature 35.9 C L Pulse Rate 63 75 Respiratory Rate 14 Blood Pressure 118/79 Pulse Oximetry 99 95 05/03/20 22:59 05/04/20 08:00 05/04/20 09:32 Temperature 36.1 C L 36.4 C Pulse Rate 69 74 72 Respiratory Rate 18 16 Blood Pressure 134/69 115/73 Pulse Oximetry 95 97 05/04/20 09:35 Temperature Pulse Rate 72 Respiratory Rate 16 Blood Pressure Pulse Oximetry 97 Intake/Output Intake/Output: Intake & Output 05/01/20 05/02/20 05/03/20 05/04/20 23:59 23:59 23:59 23:59 Intake Total 2320 1370 1107 375 Output Total 400 Balance 1920 1370 1107 375 Meds/Results Medications: Active Medications Generic Name Dose Route Start Last Admin Trade Name Freq PRN Reason Stop Dose Admin Bupropion HCl 200 mg 04/22/20 21:00 05/04/20 09:34 Wellbutrin-Sr (12hr) PO 200 mg Q12HR BOSSMAN Administration Carvedilol 12.5 mg 04/22/20 21:00 05/04/20 09:32 Coreg PO 12.5 mg Q12HR BOSSMAN Administration Divalproex Sodium 750 mg 04/26/20 11:15 05/04/20 09:34 Depakote Ec Tab PO 750 mg Q12HR BOSSMAN Administration Famotidine 20 mg 04/22/20 21:00 05/04/20 09:31 Pepcid Iv IV PUSH 20 mg Q12HR BOSSMAN Administration Ferrous Sulfate 324 mg 05/01/20 08:00 05/04/20 09:29 Ferrous Sulfate PO 324 mg BIDWM BOSSMAN Administration Finasteride 5 mg 04/23/20 09:00 05/04/20 09:31 Proscar PO 5 mg DAILY BOSSMAN Administration Fluphenazine HCl 5 mg 05/03/20 17:00 05/04/20 09:29 Fluphenazine Hcl PO 5 mg TID BOSSMAN Administration Levothyroxine Sodium 100 mcg 04/23/20 06:30 05/04/20 06:35 Synthroid PO 05/23/20 06:31 100 mcg DAILY@0630 BOSSMAN Administration Levothyroxine Sodium 75 mcg 04/23/20 06:30 05/04/20 06:35 Synthroid PO 75 mcg DAILY@0630 BOSSMAN Administration Betsy
[2020-05-04 14:58] VITALS: BP 122/68; PULSE 69; RESP 18; TEMP 35.9; O2SAT 99
--- NOTE | 2020-05-04 16:02 | PM.IMPN ---
Progress Note: A&P Assessment and Plan (1) Chest pain: Code(s): R07.9 - Chest pain, unspecified Status: Acute Assessment and Plan: 05/04/20 16:02 Patient is 69-year-old male resident of nursing with history of schizophrenia was sent to emergency department with a complaint chest pain which had been persisting few days prior to coming to emergency depart, patient 3 sets of cardiac enzymes are negative myocardial infarction was ruled out to further evaluate patient's fall and back pain patient had a CTA of the chest there was no pulmonary emboli however patient had a spinal sclerotic lesion, bone scan was done which did not show any malignancy however did show some arthritis, to further evaluate patient was seen by county sheriff oncologist is suspect patient may have multiple myeloma as he has calcium is elevated further workup is in progress, patient is a very poor historian with history of schizophrenia unable to provide detailed history review of symptom. on 04/24 Patient complained of low back pain denied any fever or chills, patient was started on Lidoderm patches for the low back pain, today is patient is more somnolent, patient potassium and magnesium are persisting low, discussed with gill box tender patient is on 2 diuretics this adonis possibly contribute to low potassium and magnesium, much detail is available is why the patient on 2 diuretics, as patient is unable to provide detailed history review of symptom will do the cardiac echo to further evaluate, patient is morbidly obese difficult to assess volume overload however chest x-ray does not show pulmonary congestion patient seen by gill box tender and further recommendation to follow, discussed with patient and daughter patient had been taking lasix for longtime and his legs were swallen NH added metozone. patient is seen gill box tender and suspect hypokalemia hypomagnesium most likely secondary to diuresis with Lasix and metolazone, on 04/28 gill box tender added spironolactone to spare potassium stopped metolazone, family is quite concerned as patient was able to interact and ambulate however since admitted this time patient is quite lathergic and not as interactive, to further evaluate we did ct of brain which did not show any acute finding, cardiact was essentially normal, TSH is nomal, patient has been taking depokote 750mg BID and psych medication including zyprexa 10mg BID which he is been taking for sometime, most likely patient is lathergic due to dual dirutics with metalozane and laxis which had depeleted potassium and magneusim, which have been replaced now trending close to normal, every day patient little more interactive, he was able to sit on the side of the bed and is able to grab things to help himself with feeding, did add salt 500mg tab BID will continue to monitor patient, provide PT/OT his sodium is trending up, will stop salt tablet. on 05/[address] Singh have stopped metalozone and Lasix will continue spironolactone patient potassium and magnesium is a close to normal Patient clinically symptoms are improving may discharge him back to home soon. discuss with PT to encourage patient to participate and make him sit in the chair, on 05/03 patient called and asked me call Dr Sahni his psychiatrist asked for recommendation to reduce patient psych medication for for his continue somnolent, I spoke with the psychiatrist recommended to reduce Fluphenazine to 5mg TID from 10mg TID, Zyprexa 10mg BID to Zyprexa 15mg qhs. today patient is more alert and voice has improved and back to normal, will CPM and may do discharge planning. (2) Abnormal CT of spine: Code(s): R93.7 - Abnormal findings on diagnostic imaging of other parts of musculoskeletal system Status: Acute Assessment and Plan: Plan is above seen by county sheriff oncologist suspect multiple myeloma further workup patient pending (3) Seizures: Code(s): R56.9 - Unspecified convulsions
[2020-05-04 20:48] VITALS: PULSE 82
[2020-05-04 20:56] VITALS: BP 110/67; PULSE 97; RESP 18; TEMP 36.4; O2SAT 70
[2020-05-05 06:04] LABS: Albumin Level 3.1 g/dL (3.5-5.1); Blood Urea Nitrogen 16 mg/dL (9-20); Calcium 9.5 mg/dL (8.4-10.2); Carbon Dioxide 36 mmol/L (22-30); Chloride 96 mmol/L (98-107); Estimated CRCL calculation 109 ml/min; Estimated Glomerular Filt Rate > 60; Glucose 94 mg/dL (75-110); Phosphorus 4.2 mg/dL (2.5-4.5); Potassium 4.4 mmol/L (3.4-5.0); Sodium 134 mmol/L (137-145)
[2020-05-05] MEDS: LEVOTHYROXINE SODIUM 75 MCG TABLET PO (06:05)
[2020-05-05] MEDS: LEVOTHYROXINE SODIUM 100 MCG TABLET PO (06:05)
[2020-05-05 08:00] VITALS: BP 106/59; PULSE 71; RESP 18; TEMP 37.7; O2SAT 94
[2020-05-05] MEDS: FERROUS SULFATE 324 MG TABLET PO ×2 (09:05→17:01)
[2020-05-05] MEDS: DIVALPROEX SODIUM 250 MG TABEC 750 MG PO ×2 (09:05→20:56)
[2020-05-05] MEDS: buPROPion HCL SR (12HR) 100 MG TABCR 200 MG PO ×2 (09:05→20:56)
[2020-05-05] MEDS: TAMSULOSIN HCL 0.4 MG CAPSULE 0.8 MG PO (09:06)
[2020-05-05] MEDS: PAROXETINE 20 MG TABLET 40 MG PO (09:06)
[2020-05-05] MEDS: MAGNESIUM OXIDE 400 MG TABLET PO (09:06)
[2020-05-05] MEDS: FAMOTIDINE 20 MG/2 ML VIAL IV PUSH ×2 (09:06→20:56)
[2020-05-05] MEDS: POTASSIUM CHLORIDE 20 MEQ TABLET.ER PO (09:06)
[2020-05-05] MEDS: VITAMIN B COMPLEX CAPSULE 1 CAP PO (09:06)
[2020-05-05] MEDS: FINASTERIDE 5 MG TABLET PO (09:06)
[2020-05-05] MEDS: SPIRONOLACTONE 25 MG TABLET PO (09:06)
[2020-05-05] MEDS: MULTIVITAMINS THERAPEUTIC TAB (*BKC) 1 TABLET PO (09:06)
[2020-05-05] MEDS: SENNOSIDES 8.6 MG TABLET PO ×2 (09:06→20:57)
[2020-05-05 09:15] VITALS: PULSE 71
[2020-05-05] MEDS: carvediloL 12.5 MG TABLET PO ×2 (09:15→20:57)
[2020-05-05 10:10] VITALS: BMI 10.0
--- NOTE | 2020-05-05 11:22 | PCNFU ---
Nutrition Follow-Up Complete: Inadequate Oral Intake as related to Dehydration/CP as evidenced by poor po intake reported Goal: Adequate Intake of at least 50% of meals/supplements limited progress towards goal. We will continue current goal. Pt current nutrition is Easy to Chew, Level 7. Nutrition recommendation: Agree Last recorded weight is 119.9 kg. Bowel Motility:+BM reported 05/04 Labs Reviewed:Na 134,Alb 3.1 Meds Noted:Mag oxide,MVI Additional Notes: Patient remains on easy to chew, Level 7 due to dentation with Ensure Enlive TID providing an additional 350 kcals and 20 gms protein. Patient is a feeder, intakes reported-10,5,70% pudding and applesauce are likes. Working on placement for discharge. Monitoring: RD will monitor every 3 days.
[2020-05-05 14:23] VITALS: BP 105/72; PULSE 73; RESP 18; TEMP 35.7; O2SAT 99
--- NOTE | 2020-05-05 14:45 | PM.DS ---
DS: Admitting Diagnosis Admitting Diagnosis Admitting Diagnosis: Chest pain, unspecified DS: Summary Time Spent with Patient Time attestation: Total time spent providing and/or coordinating discharge services: DS: Data Data Completed and Pending Labs on day of discharge: Labs from last 24 hours 05/05/20 05:26 Sodium 134 L Potassium 4.4 Chloride 96 L Carbon Dioxide 36 H BUN 16 Creatinine 0.70 Estim Creat Clear Calc 109 Estimated GFR > 60 Glucose 94 Calcium 9.5 Phosphorus 4.2 Magnesium 2.0 Albumin 3.1 L Discharge Plan Discharge Attending physician on discharge: Juli Thornton Consulting providers: Ashwin Reardon ; Ramon Coronel ; Deejay Boateng ; Fabrizio Nguyen Discharging Clinician: Juli Thornton Patient Disposition: NH Alf/Asst Living Activity: as tolerated Diet: heart healthy Discharge Instructions: Patient to follow discharge care instruction from his surgeon and follow-up as scheduled. Patient to follow-up his primary care doctor as soon as possible Patient to follow up with his psychiatrist as soon as possible and may need to taper his psych medications. Patient to follow up with his primary care provider as soon as possible PLEASE MONITOR PATIENT POTASSIUM AND MAGNESUIM CLOSELY Patient Instructions: Antibiotic Form, Dehydration (DC), Hypokalemia (DC), Weakness (DC) Stand Alone Forms: General Discharge Information Discharge Medications: New lidocaine [Lidoderm] 5 % Adhesive Patch,Medicated 2 patch transdermal DAILY Qty: 20 RF: 0 spironolactone 25 mg Tablet 25 mg PO QAM Qty: 30 RF: 0 ferrous sulfate 325 mg (65 mg iron) Tablet 324 mg PO BIDWM Qty: 60 RF: 0 fluphenazine HCl 5 mg Tablet 5 mg PO TID Qty: 90 RF: 0 potassium chloride [K-Tab] 20 mEq Tablet Extended Release 20 meq PO DAILY Qty: 30 RF: 0 olanzapine 5 mg Tablet 15 mg PO HS Qty: 90 RF: 0 Continued magnesium oxide 400 mg magnesium Tablet 400 mg PO DAILY RF: 0 levothyroxine [Synthroid] 175 mcg Tablet 175 mcg PO DAILY@0630 Qty: 30 RF: 0 divalproex 500 mg Tablet,Delayed Release (Dr/Ec) 500 mg PO Q12H RF: 0 furosemide 40 mg tablet 40 mg PO DAILY RF: 0 sennosides [senna] 8.6 mg Tablet 8.6 mg PO BID Qty: 0 RF: 0 carvedilol 12.5 mg tablet 12.5 mg PO Q12H RF: 0 fluphenazine HCl 10 mg tablet 10 mg PO TID RF: 0 metolazone 5 mg tablet 5 mg PO DAILY RF: 0 olanzapine 10 mg tablet 10 mg PO DAILY RF: 0 tamsulosin 0.4 mg capsule 0.8 mg PO DAILY RF: 0 vitamin B complex Tablet 1 tablet PO DAILY Qty: 0 RF: 0 paroxetine HCl 40 mg tablet 40 mg PO DAILY RF: 0 finasteride 5 mg tablet 5 mg PO DAILY RF: 0 bupropion HCl 200 mg tablet sustained-release 12 hr 200 mg PO Q12H RF: 0 Adults Multivitamin 18 mg iron-400 mcg-25 mcg Tablet 1 tablet PO DAILY Qty: 0 RF: 0 Discontinued polysaccharide iron complex [Poly-Iron] 150 mg iron Capsule 150 mg PO DAILY RF: 0 potassium chloride 20 mEq tablet,ER particles/crystals 40 meq PO DAILY RF: 0 Date of admission: 04/23/20 11:48 Primary Care Provider: Carlton You Admitting Provider: Juli Thornton Attending physician on admission: Juli Thornton Condition: Improved Quality VTE Prophylaxis VTE prophylaxis: mechanical ordered
--- NOTE | 2020-05-05 17:36 | PM.IMPN ---
Progress Note: A&P Assessment and Plan (1) Chest pain: Code(s): R07.9 - Chest pain, unspecified Status: Acute Assessment and Plan: 05/05/20 17:36 Patient is 69-year-old male resident of nursing with history of schizophrenia was sent to emergency department with a complaint chest pain which had been persisting few days prior to coming to emergency depart, patient 3 sets of cardiac enzymes are negative myocardial infarction was ruled out to further evaluate patient's fall and back pain patient had a CTA of the chest there was no pulmonary emboli however patient had a spinal sclerotic lesion, bone scan was done which did not show any malignancy however did show some arthritis, to further evaluate patient was seen by automotive welder oncologist is suspect patient may have multiple myeloma as he has calcium is elevated further workup is in progress, patient is a very poor historian with history of schizophrenia unable to provide detailed history review of symptom. on 04/24 Patient complained of low back pain denied any fever or chills, patient was started on Lidoderm patches for the low back pain, today is patient is more somnolent, patient potassium and magnesium are persisting low, discussed with air brush operator patient is on 2 diuretics this adonis possibly contribute to low potassium and magnesium, much detail is available is why the patient on 2 diuretics, as patient is unable to provide detailed history review of symptom will do the cardiac echo to further evaluate, patient is morbidly obese difficult to assess volume overload however chest x-ray does not show pulmonary congestion patient seen by air brush operator and further recommendation to follow, discussed with patient and daughter patient had been taking lasix for longtime and his legs were swallen NH added metozone. patient is seen air brush operator and suspect hypokalemia hypomagnesium most likely secondary to diuresis with Lasix and metolazone, on 04/28 air brush operator added spironolactone to spare potassium stopped metolazone, family is quite concerned as patient was able to interact and ambulate however since admitted this time patient is quite lathergic and not as interactive, to further evaluate we did ct of brain which did not show any acute finding, cardiact was essentially normal, TSH is nomal, patient has been taking depokote 750mg BID and psych medication including zyprexa 10mg BID which he is been taking for sometime, most likely patient is lathergic due to dual dirutics with metalozane and laxis which had depeleted potassium and magneusim, which have been replaced now trending close to normal, every day patient little more interactive, he was able to sit on the side of the bed and is able to grab things to help himself with feeding, did add salt 500mg tab BID will continue to monitor patient, provide PT/OT his sodium is trending up, will stop salt tablet. on 05/[address] Singh have stopped metalozone and Lasix will continue spironolactone patient potassium and magnesium is a close to normal Patient clinically symptoms are improving may discharge him back to home soon. discuss with PT to encourage patient to participate and make him sit in the chair, on 05/03 patient called and asked me call Dr Sahni his psychiatrist asked for recommendation to reduce patient psych medication for for his continue somnolent, I spoke with the psychiatrist recommended to reduce Fluphenazine to 5mg TID from 10mg TID, Zyprexa 10mg BID to Zyprexa 15mg qhs. today patient is more alert and voice has improved and back to normal, will CPM and may do discharge planning. Today patient clinically stable more interactive, his potassium magnesium to close to normal plan was to discharge the patient to rehab today however due to logistic will discharge him tomorrow. (2) Abnormal CT of spine: Code(s): R93.7 - Abnormal findings on diagnostic imaging of other parts of musculoskeletal system Status: Acute
--- NOTE | 2020-05-05 18:35 | PM.PNNEP ---
Progress Note: A&P Assessment and Plan (1) Hypokalemia: Code(s): E87.6 - Hypokalemia Status: Acute Assessment and Plan: resolved/resolving TSH, cortisol, aldosterone, renin all within range given situation. on spirolactone at this time will d/c potassium supplementation follow trend of K+ levels (2) Chronic paranoid schizophrenia: Code(s): F20.0 - Paranoid schizophrenia Status: Acute Assessment and Plan: medication adjustments noted by psychiatrist seems stable (3) Anemia: Code(s): D64.9 - Anemia, unspecified Status: Chronic Assessment and Plan: due in part from iron deficiency on oral iron Will continue to follow from a distance. Subjective Date/time seen: 05/05/20 18:35 Significant improvement noted since I last saw him - more awake and alert; no apparent distress voiced at this time; no events overnight or earlier this AM. Exam Narrative: Exam Narrative: General: WD/WN male in NAD Heart: normal S1 and S2; no rub Lungs: clear to auscultation Abdomen: soft, nontender, nondistended, positive bowel sounds Extremities: no cyanosis or clubbing; no edema Skin: warm and dry Objective Data Vital Signs Vital Signs: Vital Signs Temp Pulse Resp BP Pulse Ox 05/05/20 14:23 35.7 C L 73 18 105/72 99 05/05/20 09:15 71 05/05/20 08:00 37.7 C H 71 18 106/59 L 94 05/04/20 20:56 36.4 C L 97 18 110/67 70 L 05/04/20 20:48 82 Intake/Output Intake/Output: Intake & Output 05/02/20 05/03/20 05/04/20 05/05/20 23:59 23:59 23:59 23:59 Intake Total 1370 1107 1095 940 Balance 1370 1107 1095 940 Meds/Results Medications: Active Medications Generic Name Dose Route Start Last Admin Trade Name Freq PRN Reason Stop Dose Admin Bupropion HCl 200 mg 04/22/20 21:00 05/05/20 09:05 Wellbutrin-Sr (12hr) PO 200 mg Q12HR BOSSMAN Administration Carvedilol 12.5 mg 04/22/20 21:00 05/05/20 09:15 Coreg PO 12.5 mg Q12HR BOSSMAN Administration Divalproex Sodium 750 mg 04/26/20 11:15 05/05/20 09:05 Depakote Ec Tab PO 750 mg Q12HR BOSSMAN Administration Famotidine 20 mg 04/22/20 21:00 05/05/20 09:06 Pepcid Iv IV PUSH 20 mg Q12HR BOSSMAN Administration Ferrous Sulfate 324 mg 05/01/20 08:00 05/05/20 17:01 Ferrous Sulfate PO 324 mg BIDWM BOSSMAN Administration Finasteride 5 mg 04/23/20 09:00 05/05/20 09:06 Proscar PO 5 mg DAILY BOSSMAN Administration Fluphenazine HCl 5 mg 05/03/20 17:00 05/05/20 17:01 Fluphenazine Hcl PO 5 mg TID BOSSMAN Administration Levothyroxine Sodium 100 mcg 04/23/20 06:30 05/05/20 06:05 Synthroid PO 05/23/20 06:31 100 mcg DAILY@0630 BOSSMAN Administration Levothyroxine Sodium 75 mcg 04/23/20 06:30 05/05/20 06:05 Synthroid PO 75 mcg DAILY@0630 BOSSMAN Administration Magnesium Oxide 400 mg 04/23/20 09:00 05/05/20 09:06 Mag-Ox PO 400 mg DAILY BOSSMAN Administration Multivitamins Therapeutic 1 tablet 04/23/20 09:00 05/05/20 09:06 Multivitamins Therapeutic(*Bkc PO 05/23/20 09:01 1 tablet DAILY BOSSMAN Administration Olanzapine 15 mg 05/04/20 21:00 05/04/20 20:49 Zyprexa PO 15 mg HS BOSSMAN Administration Ondansetron HCl 4 mg 04/22/20 15:54 Zofran Inj IV PUSH Q4H PRN Nausea Paroxetine HCl 40 mg 04/23/20 09:00 05/05/20 09:06 Paxil PO 40 mg DAILY BOSSMAN Administration Potassium Chloride 20 meq 05/05/20 09:00 05/05/20 09:06 Kcl Tablet PO 20 meq DAILY BOSSMAN Administration Senna 8.6 mg 04/22/20 21:00 05/05/20 09:06 Senokot Tablet PO 8.6 mg Q12HR BOSSMAN Administration Spironolactone 25 mg 04/28/20 09:00 05/05/20 09:06 Aldactone PO 25 mg QAM BOSSMAN Administration Tamsulosin HCl 0.8 mg 04/23/20 09:00 05/05/20 09:06 Flomax PO 0.8 mg DAILY BOSSMAN Administration Vitamin B Complex 1 cap 04/23/20 09:00 05/05/20 09:06 Vitamin B Complex PO 05/23/20 09:01 1 ca
[2020-05-05] MEDS: ACETAMINOPHEN 325 MG TABLET 650 MG PO (19:31)
[2020-05-05 20:53] VITALS: BP 103/51; PULSE 69; RESP 16; TEMP 36.8; O2SAT 97
[2020-05-05 20:57] VITALS: PULSE 70
[2020-05-05 22:51] VITALS: PULSE 75; O2SAT 98
[2020-05-06 04:47] VITALS: PULSE 64; O2SAT 97
[2020-05-06] MEDS: LEVOTHYROXINE SODIUM 75 MCG TABLET PO (05:30)
[2020-05-06] MEDS: LEVOTHYROXINE SODIUM 100 MCG TABLET PO (05:30)
[2020-05-06 06:14] LABS: Blood Urea Nitrogen 15 mg/dL (9-20); Calcium 9.1 mg/dL (8.4-10.2); Carbon Dioxide 33 mmol/L (22-30); Chloride 96 mmol/L (98-107); Estimated CRCL calculation 126 ml/min; Estimated Glomerular Filt Rate > 60; Glucose 87 mg/dL (75-110); Phosphorus 4.2 mg/dL (2.5-4.5); Potassium 4.3 mmol/L (3.4-5.0); Sodium 134 mmol/L (137-145)
[2020-05-06 07:31] VITALS: BP 122/60; PULSE 69; RESP 14; TEMP 36.9; O2SAT 98
[2020-05-06 08:35] VITALS: TEMP 36.6
[2020-05-06] MEDS: POTASSIUM CHLORIDE 20 MEQ TABLET.ER PO (09:24)
[2020-05-06] MEDS: DIVALPROEX SODIUM 250 MG TABEC 750 MG PO (09:24)
[2020-05-06] MEDS: VITAMIN B COMPLEX CAPSULE 1 CAP PO (09:24)
[2020-05-06] MEDS: SENNOSIDES 8.6 MG TABLET PO (09:24)
[2020-05-06] MEDS: SPIRONOLACTONE 25 MG TABLET PO (09:25)
[2020-05-06] MEDS: PAROXETINE 20 MG TABLET 40 MG PO (09:25)
[2020-05-06] MEDS: FINASTERIDE 5 MG TABLET PO (09:25)
[2020-05-06] MEDS: TAMSULOSIN HCL 0.4 MG CAPSULE 0.8 MG PO (09:25)
[2020-05-06] MEDS: buPROPion HCL SR (12HR) 100 MG TABCR 200 MG PO (09:25)
[2020-05-06] MEDS: MULTIVITAMINS THERAPEUTIC TAB (*BKC) 1 TABLET PO (09:25)
[2020-05-06] MEDS: FERROUS SULFATE 324 MG TABLET PO (09:25)
[2020-05-06] MEDS: MAGNESIUM OXIDE 400 MG TABLET PO (09:26)
[2020-05-06 09:27] VITALS: PULSE 69
[2020-05-06] MEDS: carvediloL 12.5 MG TABLET PO (09:27)
--- NOTE | 2020-05-06 10:59 | PM.DS ---
DS: Admitting Diagnosis Admitting Diagnosis Admitting Diagnosis: Chest pain, unspecified DS: Discharge Diagnosis Discharge Diagnosis (1) Chest pain: Code(s): R07.9 - Chest pain, unspecified Status: Acute Assessment and Plan: 05/05/20 17:36 Patient is 69-year-old male resident of nursing with history of schizophrenia was sent to emergency department with a complaint chest pain which had been persisting few days prior to coming to emergency depart, patient 3 sets of cardiac enzymes are negative myocardial infarction was ruled out to further evaluate patient's fall and back pain patient had a CTA of the chest there was no pulmonary emboli however patient had a spinal sclerotic lesion, bone scan was done which did not show any malignancy however did show some arthritis, to further evaluate patient was seen by business solution analyst oncologist is suspect patient may have multiple myeloma as he has calcium is elevated further workup is in progress, patient is a very poor historian with history of schizophrenia unable to provide detailed history review of symptom. on 04/24 Patient complained of low back pain denied any fever or chills, patient was started on Lidoderm patches for the low back pain, today is patient is more somnolent, patient potassium and magnesium are persisting low, discussed with office professionals patient is on 2 diuretics this adonis possibly contribute to low potassium and magnesium, much detail is available is why the patient on 2 diuretics, as patient is unable to provide detailed history review of symptom will do the cardiac echo to further evaluate, patient is morbidly obese difficult to assess volume overload however chest x-ray does not show pulmonary congestion patient seen by office professionals and further recommendation to follow, discussed with patient and daughter patient had been taking lasix for longtime and his legs were swallen NH added metozone. patient is seen office professionals and suspect hypokalemia hypomagnesium most likely secondary to diuresis with Lasix and metolazone, on 04/28 office professionals added spironolactone to spare potassium stopped metolazone, family is quite concerned as patient was able to interact and ambulate however since admitted this time patient is quite lathergic and not as interactive, to further evaluate we did ct of brain which did not show any acute finding, cardiact was essentially normal, TSH is nomal, patient has been taking depokote 750mg BID and psych medication including zyprexa 10mg BID which he is been taking for sometime, most likely patient is lathergic due to dual dirutics with metalozane and laxis which had depeleted potassium and magneusim, which have been replaced now trending close to normal, every day patient little more interactive, he was able to sit on the side of the bed and is able to grab things to help himself with feeding, did add salt 500mg tab BID will continue to monitor patient, provide PT/OT his sodium is trending up, will stop salt tablet. on 05/[address] Singh have stopped metalozone and Lasix will continue spironolactone patient potassium and magnesium is a close to normal Patient clinically symptoms are improving may discharge him back to home soon. discuss with PT to encourage patient to participate and make him sit in the chair, on 05/03 patient called and asked me call Dr Sahni his psychiatrist asked for recommendation to reduce patient psych medication for for his continue somnolent, I spoke with the psychiatrist recommended to reduce Fluphenazine to 5mg TID from 10mg TID, Zyprexa 10mg BID to Zyprexa 15mg qhs. today patient is more alert and voice has improved and back to normal, will CPM and may do discharge planning. Today patient clinically stable more interactive, his potassium magnesium to close to normal plan was to discharge the patient to rehab today however due to logistic will discharge him tomorrow. (2) Abnormal CT of spine: Code(s): R93.7 - Abnormal
--- NOTE | 2020-05-09 14:31 | PC.NURSE ---
Received call from patient's wanting to verify meds. states that Lasix and metolazone are to have been discontinued and the spironolactone is to be continued. Spoke with Dr. Thornton and he states the is correct. Spoke to Gabriela at [facility] and discussed with her. Order faxed to [facility]. Called and informed her this has been taken care of.
--- NOTE | 2020-05-09 15:44 | PC.NURSE ---
Spoke to Dr. Thornton and changed Divalproex to 750mg EC po BID.Fluphenazine is to be at 10 mg po TID. Called and spoke with Gabriela at [facility] regarding changes. She states understanding. Orders faxed to [facility]. Called and she is agreeable with changes.
== END 2020-05-06 13:00 | DRG 313 ==
LOC: ANHED 15:59 → ANHIMU 16:53 → ANH3MED 04-23 16:55
PROVIDERS: Emergency Medicine Emergency Medical Services; Family Medicine; Internal Medicine Hematology & Oncology; Internal Medicine Nephrology; Nurse Practitioner; Admitting Provider Family Medicine; Emergency Provider Emergency Medicine; PCP Radiology Diagnostic Radiology; Visit Provider Family Medicine
DX: R07.9 Chest pain, unspecified (principal); F20.0 Paranoid schizophrenia; E87.6 Hypokalemia; D64.9 Anemia, unspecified; Z11.59 Encounter for screening for other viral diseases; E86.0 Dehydration; G40.909 Epilepsy, unspecified, not intractable, without status epilepticus; E03.9 Hypothyroidism, unspecified; I10 Essential (primary) hypertension; G47.33 Obstructive sleep apnea (adult) (pediatric); N40.0 Benign prostatic hyperplasia without lower urinary tract symptoms; R53.1 Weakness; E66.01 Morbid (severe) obesity due to excess calories; R93.7 Abnormal findings on diagnostic imaging of other parts of musculoskeletal system; T50.1X5A Adverse effect of loop [high-ceiling] diuretics, initial encounter; M89.9 Disorder of bone, unspecified; M54.5 Low back pain; G89.4 Chronic pain syndrome; Z96.643 Presence of artificial hip joint, bilateral; Z96.659 Presence of unspecified artificial knee joint; E83.42 Hypomagnesemia
CPT/HCPCS: 36415; 36600; 70450; 70490; 71045; 71275; 73110; 74177; 76536; 78306; 80048; 80053; 80069; 80076; 80164; 80165; 81003; 82088; 82375; 82436; 82533; 82570; 82784; 82805; 83050; 83540; 83550; 83605; 83690; 83735; 83880; 83883; 84100; 84132; 84133; 84155; 84156; 84165; 84244; 84300; 84439; 84443; 84480; 84484; 85025; 85027; 85380; 85610; 85730; 86140; 86334; 87635; 93005; 93306; 93970; 96361; 96365; 96366; 96375; 96376; 97110; 97161; 97165; 97530; 97535; 99285; A9270; A9561; C8929; C9803; G0378; J0131; J1170; J3475; J3480; J7120; Q9957; Q9967; U0003